=== PATIENT | male | born 2000 | race Caucasian/White ===

== ENCOUNTER 2019-10-01 11:39 | Observation (INO) | payer BC, OTHER ==
[2019-10-01] MEDS ORDERED: SODIUM CHLORIDE 0.9% 1,000 ML IV ONE (12:15)
--- NOTE | 2019-10-01 12:24 | ED ---
General Adult HPI - General Chief complaint: Recheck/Abnormal Lab/Rx Stated complaint: kidney issue relaps Time Seen by Provider: 10/01/19 11:55 Source: patient, RN notes reviewed, old records reviewed Mode of arrival: ambulatory Limitations: no limitations - History of Present Illness Initial comments: This is a 19-year-old male who has a past medical history significant for nephrotic syndrome. Patient states his numbers been rising recently but the refusing here today because he had edema increasing in both legs bilaterally. Patient also states she's had a little sensation that he has something stuck in his throat this happen before when he has swelling in his feet. Patient denies any difficulty breathing shortest breath. Patient denies any recent fever chills or cough per patient denies any chest pain or palpitations patient denies any abdominal pain patient denies any nausea vomiting or diarrhea. - Related Data Home Medications Medication Instructions Recorded Confirmed Multivitamins, Thera [Theragran] 1 each PO DAILY@1200 05/12/14 05/12/14 Previous Rx's Medication Instructions Recorded diphenhydrAMINE [Benadryl] 1 - 2 tab PO Q6HR PRN #30 capsule 11/14/15 Allergies Allergy/AdvReac Type Severity Reaction Status Date / Time Penicillins Allergy Unknown Verified 10/01/19 11:58 Review of Systems ROS Statement: Those systems with pertinent positive or pertinent negative responses have been documented in the HPI. ROS Other: All systems not noted in ROS Statement are negative. Past Medical History Past Medical History: Asthma Additional Past Medical History / Comment(s): nephrotic syndrome History of Any Multi-Drug Resistant Organisms: None Reported Past Surgical History: No Surgical Hx Reported Past Psychological History: No Psychological Hx Reported Past Alcohol Use History: None Reported Past Drug Use History: None Reported General Exam - General Exam Comments Initial Comments: GENERAL: Patient is well-developed and well-nourished. Patient is nontoxic and well- hydrated and is in mild distress. ENT: Neck is soft and supple. No significant lymphadenopathy is noted. Oropharynx is clear. Moist mucous membranes. Neck has full range of motion without eliciting any pain. EYES: The sclera were anicteric and conjunctiva were pink and moist. Extraocular movements were intact and pupils were equal round and reactive to light. Eyelids were unremarkable. PULMONARY: Unlabored respirations. Good breath sounds bilaterally. No audible rales rhonchi or wheezing was noted. CARDIOVASCULAR: There is a regular rate and rhythm without any murmurs gallops or rubs. ABDOMEN: Soft and nontender with normal bowel sounds. SKIN: Skin is clear with no lesions or rashes and otherwise unremarkable. NEUROLOGIC: Patient is alert and oriented x3. Cranial nerves II through XII are grossly intact. Motor and sensory are also intact. Normal speech, volume and content. Symmetrical smile. MUSCULOSKELETAL: Normal extremities with adequate strength and full range of motion. Edema 1+ bilaterally LYMPHATICS: No significant lymphadenopathy is noted PSYCHIATRIC: Normal psychiatric evaluation. Limitations: no limitations Course Vital Signs 10/01/19 11:53 Temperature 98.0 F Pulse Rate 84 Respiratory 18 Rate Blood Pressure 123/76 O2 Sat by Pulse 99 Oximetry Medical Decision Making - Medical Decision Making Dr. Rueda came into the emergency department saw the patient wanted the patient admitted. I spoke with Dr. Colbert she agreed to admit the patient admitted the patient wrote admitting orders. - Lab Data Result diagrams: 10/01/19 12:26 10/01/19 12:26 Lab Results 10/01/19 10/01/19 10/01/19 Range/Units 12:26 12:26 12:26 WBC 5.9 (4.0-11.0) k/uL RBC 5.92 H (4.30-5.90) m/uL Hgb 16.5 (13.0-17.5) gm/dL Hct 50.2 (39.0-53.0) % MCV 84.8 (80.0-100.0) fL MCH 27.9 (25.0-35.0) pg MCHC 32.9 (31.0-37.0) g/dL RDW 12.6 (11.5-15.5) % Plt Count 298 (150-450) k/uL Neutrophils % 83 % Lymphocytes % 11 % Monocytes % 4 % Eosinophils % 2 % Basophils % 0 % Neutrophils # 4.8 (1.3-7.7) k/uL Lymphocytes # 0.6 L (1.0-4.8) k/uL Monocytes # 0.2 (0-1.0) k/uL Eosinophils # 0.1 (0-0.7) k/uL Basophils # 0.0 (0-0.2) k/uL Sodium 131 L (137-145) mmol/L Potassium 4.2 (3.5-5.1) mmol/L Chloride 106 (98-107) mmol/L Carbon Dioxide 26 (22-30) mmol/L Anion Gap -1 mmol/L BUN 11 (9-20) mg/dL Creatinine 0.74 (0.66-1.25) mg/dL Est GFR (CKD-EPI)AfAm >90 (>60 ml/min/1.73 sqM) Est GFR (CKD-EPI)NonAf >90 (>60 ml/min/1.73 sqM) Glucose 115 H (74-99) mg/dL Calcium 7.6 L (8.4-10.2) mg/dL Total Bilirubin 0.6 (0.2-1.3) mg/dL AST 28 (17-59) U/L ALT 19 (4-49) U/L Alkaline Phosphatase 75 (38-126) U/L Total Protein 4.6 L (6.3-8.2) g/dL Albumin 2.1 L (3.5-5.0) g/dL Urine Color Yellow Urine Appearance Clear (Clear) Urine pH 7.5 (5.0-8.0) Ur Specific [place] 1.034 (1.001-1.035) Urine Protein 4+ H (Negative) Urine Glucose (UA) Negative (Negative) Urine Ketones Negative (Negative) Urine Blood Small H (Negative) Urine Nitrite Negative (Negative) Urine Bilirubin Negative (Negative) Urine Urobilinogen 2.0 (<2.0) mg/dL Ur Leukocyte Esterase Negative (Negative) Urine RBC 1 (0-5) /hpf Urine WBC 2 (0-5) /hpf Urine Bacteria Rare H (None) /hpf Urine Mucus Occasional H (None) /hpf Disposition Clinical Impression: Nephrotic syndrome Disposition: ADMITTED IP TO THIS [facility] Time of Disposition: 13:39
[2019-10-01 12:36] LABS: Basophils % (A) 0 %; Eosinophils # (A) 0.1 k/uL (0-0.7); Eosinophils % (A) 2 %; HCT 50.2 % (39.0-53.0); HGB 16.5 gm/dL (13.0-17.5); Lymphocytes # (A) 0.6 k/uL (1.0-4.8); Lymphocytes % (A) 11 %; MCH 27.9 pg (25.0-35.0); MCHC 32.9 g/dL (31.0-37.0); MCV 84.8 fL (80.0-100.0); Mean Platelet Volume 6.9; Monocytes # (A) 0.2 k/uL (0-1.0); Monocytes % (A) 4 %; Neutrophils # (A) 4.8 k/uL (1.3-7.7); Neutrophils % (A) 83 %; Platelet Count 298 k/uL (150-450); RBC 5.92 m/uL (4.30-5.90); RDW 12.6 % (11.5-15.5); WBC 5.9 k/uL (4.0-11.0)
[2019-10-01 12:44] LABS: ALT 19 U/L (4-49); AST 28 U/L (17-59); African American GFR (CKD) >90 (>60 ml/min/1.73 sqM); Albumin 2.1 g/dL (3.5-5.0); Alkaline Phosphatase 75 U/L (38-126); Anion Gap -1 mmol/L; Blood Urea Nitrogen 11 mg/dL (9-20); Calcium 7.6 mg/dL (8.4-10.2); Carbon Dioxide 26 mmol/L (22-30); Chloride 106 mmol/L (98-107); Glucose 115 mg/dL (74-99); Non-African American GFR(CKD) >90 (>60 ml/min/1.73 sqM); Potassium 4.2 mmol/L (3.5-5.1); Sodium 131 mmol/L (137-145); Total Bilirubin 0.6 mg/dL (0.2-1.3); Total Protein 4.6 g/dL (6.3-8.2)
[2019-10-01 12:50] LABS: Appearance,Urine Clear (Clear); Bacteria,Urine Rare /hpf; Bilirubin,Urine Negative (Negative); Blood,Urine Small (Negative); Color,Urine Yellow; Glucose,Urine (UA) Negative (Negative); Ketones,Urine Negative (Negative); Leukocyte Esterase,Urine Negative (Negative); Mucus,Urine Occasional /hpf; Nitrite,Urine Negative (Negative); PH, Urine 7.5 (5.0-8.0); Protein,Urine 4+ (Negative); RBC,Urine 1 /hpf (0-5); Specific Gravity,Urine 1.034 (1.001-1.035); WBC,Urine 2 /hpf (0-5)
--- NOTE | 2019-10-01 13:48 | P.NPCON ---
History of Present Illness - Reason for Consult proteinuria - History of Present Illness Reason for consultation: Proteinuria History of present illness: Patient is a 19-year-old male seen in renal consultation for proteinuria. Patient has history of nephrotic syndrome for which she is maintained on pred nisone 5 mg every other day. Patient states he was following with the pediatrics teacher outpatient but now doesn't want to drive out to [place] and therefore recently started seeing me in the office. Patient denies any kidney biopsies in the past. Patient states about a week ago he noticed swelling in his lower extremities which progressively got worse over the last few days. Patient believes he is having another relapse. He denies chest pain or shortness of breath. Good urine output. No hematuria or dysuria. No vomiting or diarrhea. Blood pressure well controlled. He is noted to have 4+ proteinuria on UA. His albumin is low at 2.1. No history of IV drug abuse. Patient states he works at an [employer]. Denies regular use of nonsteroidals. Vital signs are stable. General: The patient appeared well nourished and normally developed. HEENT: Head exam is unremarkable. Neck is without jugular venous distension. LUNGS: Lungs are clear to auscultation and percussion. Breath sounds decreased. HEART: Rate and Rhythm are regular. ABDOMEN: Soft, nontender. EXTREMITITES: 2+ edema. Past Medical History Past Medical History: Asthma Additional Past Medical History / Comment(s): nephrotic syndrome History of Any Multi-Drug Resistant Organisms: None Reported Past Surgical History: No Surgical Hx Reported Past Psychological History: No Psychological Hx Reported Past Alcohol Use History: None Reported Past Drug Use History: None Reported Medications and Allergies Home Medications Medication Instructions Recorded Confirmed Type Multivitamins, Thera [Theragran] 1 each PO DAILY@1200 05/12/14 05/12/14 History diphenhydrAMINE [Benadryl] 1 - 2 tab PO Q6HR PRN #30 capsule 11/14/15 Rx Allergies Allergy/AdvReac Type Severity Reaction Status Date / Time Penicillins Allergy Unknown Verified 10/01/19 11:58 Physical Exam Vitals: Vital Signs Temp Pulse Resp BP Pulse Ox 10/01/19 11:53 98.0 F 84 18 123/76 99 Intake and Output 09/30/19 10/01/19 10/01/19 22:59 06:59 14:59 Other: Weight 85.275 kg Results - Lab Results Most recent lab results WBC 5.9 k/uL (4.0-11.0) 10/01/19 12: RBC 5.92 m/uL (4.30-5.90) H 10/01/19 12:26 Hgb 16.5 gm/dL (13.0-17.5) 10/01/19 12: Hct 50.2 % (39.0-53.0) 10/01/19 12: MCV 84.8 fL (80.0-100.0) 10/01/19 12: MCH 27.9 pg (25.0-35.0) 10/01/19 12: MCHC 32.9 g/dL (31.0-37.0) 10/01/19 12: RDW 12.6 % (11.5-15.5) 10/01/19 12: Plt Count 298 k/uL (150-450) 10/01/19 12: Neutrophils % 83 % 10/01/19 12: Lymphocytes % 11 % 10/01/19 12:26 Monocytes % 4 % 10/01/19 12: Eosinophils % 2 % 10/01/19 12: Basophils % 0 % 10/01/19 12: Neutrophils # 4.8 k/uL (1.3-7.7) 10/01/19 12: Lymphocytes # 0.6 k/uL (1.0-4.8) L 10/01/19 12: Monocytes # 0.2 k/uL (0-1.0) 10/01/19 12: Eosinophils # 0.1 k/uL (0-0.7) 10/01/19 12: Basophils # 0.0 k/uL (0-0.2) 10/01/19 12:26 Sodium 131 mmol/L (137-145) L 10/01/19 12:26 Potassium 4.2 mmol/L (3.5-5.1) 10/01/19 12: Chloride 106 mmol/L (98-107) 10/01/19 12: Carbon Dioxide 26 mmol/L (22-30) 10/01/19 12:26 Anion Gap -1 mmol/L 10/01/19 12:26 BUN 11 mg/dL (9-20) 10/01/19 12:26 Creatinine 0.74 mg/dL (0.66-1.25) 10/01/19 12:26 Est GFR (CKD-EPI)AfAm >90 (>60 ml/min/1.73 sqM) 10/01/19 12: Est GFR (CKD-EPI)NonAf >90 (>60 ml/min/1.73 sqM) 10/01/19 12:26 Glucose 115 mg/dL (74-99) H 10/01/19 12:26 Calcium 7.6 mg/dL (8.4-10.2) L 10/01/19 12: Total Bilirubin 0.6 mg/dL (0.2-1.3) 10/01/19 12: AST 28 U/L (17-59) 10/01/19 12: ALT 19 U/L (4-49) 10/01/19 12: Alkaline Phosphatase 75 U/L (38-126) 10/01/19 12:26 Total Protein 4.6 g/dL (6.3-8.2) L 10/01/19 12: Albumin 2.1 g/dL (3.5-5.0) L 10/01/19 12:26 10/01/19 12:26 10/01/19 12:26 Assessment and Plan Plan: Assessment: 1. Nephrotic syndrome. 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 Patie nt states he's never had a kidney biopsy before. He's had 7 relapses in the past. GFR at baseline. Maintained on prednisone 5 mg every other day at home. 2. Edema secondary to nephrotic syndrome. 3. 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 Plan: Lasix 40 mg IV twice daily. Quantify proteinuria. Check renal ultrasound. Check serologies. Schedule for CT-guided kidney biopsy for definitive diagnosis. Start prednisone 60 mg once daily. Low-salt diet and 1500 mL fluid restriction per day. Will also benefit from YUAN inhibition. Check lipid panel. Thank you for the consultation. I will continue to follow the patient with you during his hospital stay.
--- NOTE | 2019-10-01 14:26 | US ---
EXAMINATION TYPE: US kidneys/renal and bladder DATE OF EXAM: 10/01/2019 COMPARISON: NONE CLINICAL HISTORY: 19-year-old male with acute kidney injury, abnormal labs. Patient states no pain. TECHNIQUE: Multiple sonographic images of the kidneys and bladder are obtained. FINDINGS: EXAM MEASUREMENTS: Right Kidney: 12.3 x 5.9 x 4.4 cm Left Kidney: 11.4 x 5.2 x 6.3 cm Right Kidney: No hydronephrosis. Left Kidney: No hydronephrosis. Possible trace perinephric edema. Bladder: Mildly distended but with apparent circumferential wall thickening up to 6 mm. Bilateral Jets not seen [id number] free fluid seen in midline pelvis IMPRESSION: 1. No hydronephrosis. 2. Possible mild left sided perinephric fluid of unclear etiology. 3. Mild to moderate pelvic free fluid may be physiologic. Further clinical correlation recommended. 4. Circumferential bladder wall thickening. Correlate to exclude cystitis.
[2019-10-01] MEDS: FUROSEMIDE 10 MG/ML 4 ML VIAL IV SCH ×2 (14:29→20:46)
[2019-10-01] MEDS: predniSONE 20 MG TAB PO SCH (14:29)
[2019-10-01 15:30] LABS: ALT 18 U/L (4-49); AST 28 U/L (17-59); African American GFR (CKD) >90 (>60 ml/min/1.73 sqM); Albumin 2.1 g/dL (3.5-5.0); Alkaline Phosphatase 70 U/L (38-126); Anion Gap -1 mmol/L; Blood Urea Nitrogen 11 mg/dL (9-20); Calcium 7.7 mg/dL (8.4-10.2); Carbon Dioxide 26 mmol/L (22-30); Chloride 105 mmol/L (98-107); Glucose 104 mg/dL (74-99); Magnesium 1.9 mg/dL (1.6-2.3); Non-African American GFR(CKD) >90 (>60 ml/min/1.73 sqM); Potassium 4.6 mmol/L (3.5-5.1); Sodium 130 mmol/L (137-145); Total Bilirubin 0.5 mg/dL (0.2-1.3); Total Protein 4.6 g/dL (6.3-8.2)
[2019-10-02 04:09] LABS: Hepatitis A Antibody IgM Non-Reactive (Non-Reactive)
[2019-10-02] MEDS: predniSONE 20 MG TAB PO SCH (08:52)
[2019-10-02] MEDS: FUROSEMIDE 10 MG/ML 4 ML VIAL IV SCH ×2 (08:52→20:33)
[2019-10-02 09:20] LABS: ALT 16 U/L (4-49); AST 22 U/L (17-59); African American GFR (CKD) >90 (>60 ml/min/1.73 sqM); Albumin 1.9 g/dL (3.5-5.0); Alkaline Phosphatase 66 U/L (38-126); Anion Gap -1 mmol/L; Blood Urea Nitrogen 11 mg/dL (9-20); Calcium 7.8 mg/dL (8.4-10.2); Carbon Dioxide 29 mmol/L (22-30); Chloride 103 mmol/L (98-107); Glucose 107 mg/dL (74-99); Magnesium 1.9 mg/dL (1.6-2.3); Non-African American GFR(CKD) >90 (>60 ml/min/1.73 sqM); Potassium 3.6 mmol/L (3.5-5.1); Sodium 131 mmol/L (137-145); Total Bilirubin 0.6 mg/dL (0.2-1.3); Total Protein 4.2 g/dL (6.3-8.2); Triglycerides 107 mg/dL (<150)
[2019-10-02 09:27] LABS: LDL Cholesterol,Calculated 265 mg/dL (0-99)
--- NOTE | 2019-10-02 09:32 | P.PN ---
Subjective Patient is seen in follow-up for nephrotic syndrome. Edema improving with IV diuresis. Maintained on prednisone 60 mg once daily. Oral intake fair. No vomiting or diarrhea. Scheduled for kidney biopsy today. Vital signs are stable. General: The patient appeared well nourished and normally developed. HEENT: Head exam is unremarkable. Neck is without jugular venous distension. LUNGS: Lungs are clear to auscultation and percussion. Breath sounds decreased. HEART: Rate and Rhythm are regular. First and second heart sounds normal. No murmurs, rubs or gallops. ABDOMEN: Soft, nontender. EXTREMITITES: 1+ edema. Objective - Vital Signs Vital signs: Vital Signs Temp 97.8 F 10/01/19 20:44 Pulse 95 10/02/19 03:00 Resp 17 10/02/19 03:00 BP 122/61 10/02/19 03:00 Pulse Ox 98 10/02/19 03:00 Intake & Output 10/01/19 10/02/19 10/02/19 18:59 06:59 18:59 Output Total 1900 Balance -1900 Weight 85.275 kg Output: Urine 1900 Other: Voiding Method Toilet Toilet # Voids 1 - Labs CBC & Chem 7: 10/01/19 12:26 10/01/19 15:13 Labs: Abnormal Lab Results - Last 24 Hours (Table) 10/01/19 10/01/19 10/01/19 Range/Units 12:26 12:26 12:26 RBC 5.92 H (4.30-5.90) m/uL Lymphocytes # 0.6 L (1.0-4.8) k/uL Sodium 131 L (137-145) mmol/L Glucose 115 H (74-99) mg/dL Calcium 7.6 L (8.4-10.2) mg/dL Total Protein 4.6 L (6.3-8.2) g/dL Albumin 2.1 L (3.5-5.0) g/dL Urine Protein 4+ H (Negative) Urine Blood Small H (Negative) Urine Bacteria Rare H (None) /hpf Urine Mucus Occasional H (None) /hpf 10/01/19 Range/Units 15:13 RBC (4.30-5.90) m/uL Lymphocytes # (1.0-4.8) k/uL Sodium 130 L (137-145) mmol/L Glucose 104 H (74-99) mg/dL Calcium 7.7 L (8.4-10.2) mg/dL Total Protein 4.6 L (6.3-8.2) g/dL Albumin 2.1 L (3.5-5.0) g/dL Urine Protein (Negative) Urine Blood (Negative) Urine Bacteria (None) /hpf Urine Mucus (None) /hpf Assessment and Plan Plan: Assessment: 1. Nephrotic syndrome. 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 Patient states he's never had a kidney biopsy before. He's had 7 relapses in the past. GFR at baseline. Was maintained on prednisone 5 mg every other day at home. No hydronephrosis noted on kidney ultrasound. 2. Edema secondary to nephrotic syndrome. 3. 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 Plan: Lasix 40 mg IV twice daily. Check serologies. Scheduled for CT-guided kidney biopsy for definitive diagnosis. Maintain prednisone 60 mg once daily - started September 30. Low-salt diet and 1500 mL fluid restriction per day. Add low-dose lisinopril.
[2019-10-02 09:33] LABS: Cholesterol 404 mg/dL (<200); HDL Cholesterol 118 mg/dL (40-60)
--- NOTE | 2019-10-02 09:44 | P.HPIM ---
History of Present Illness H&P Date: 10/02/19 Chief Complaint: Lower extremity edema, foamy urine This is a 19-year-old gentleman with history of asthma as a child, nephrotic syndrome on oral steroids;patient reports in 2014 that he had kidney issues, transferred to [facility], no biopsy was obtained at that time. 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 Rueda, related to being closer to home. Patient reports he works in [employer] ,was not doing any strenuous activity, no workouts, not taking any supplements, no NSAIDs, no recreational drug use, developed dry throat, bilateral lower extremity edema times nearly a week and good urine outputfoamy darkened urine. Denies dysuria, no hematuria. Reports presentation similar to prior one in 2015. Denies any chest pain, palpitations, shortness of breath. Denies any fever or chills. Denies any cough. Denies nausea vomiting or diarrhea. Denies abdominal pain. Afebrile, normal WBC. Albumin 2.1 Sodium 1:30, anion gap -1 BUN 11, creatinine 0.74, bicarb 26, glucose 104 to 115. UA reported 4+ protein, total protein greater than 600, occasional mucus, rare bacteria urine creatinine 278.3, rare bacteria negative nitrates, specific gravity 1.034. Hepatitis A serology nonreactive. Abdomen/pelvis ultrasound reported no hydronephrosis, mild to moderate free fluid seen in midline pelvis, possible mild left-sided perinephric fluid of unclear etiology, circumferential bladder wall thickening, possibly cystitis. Received IV fluids in the ER. Evaluated by nephrology, IV push Lasix and steroids initiated. Patient is scheduled for kidney biopsy today. Review of Systems ROS Statement: Those systems with pertinent positive or pertinent negative responses have been documented in the HPI. ROS Other: All systems not noted in ROS Statement are negative. Past Medical History Past Medical History: Asthma, Renal Disease Additional Past Medical History / Comment(s): nephrotic syndrome, asthma as a child History of Any Multi-Drug Resistant Organisms: None Reported Past Surgical History: No Surgical Hx Reported Past Anesthesia/Blood Transfusion Reactions: Unable to Obtain Additional Past Anesthesia/Blood Transfusion Reaction / Comment(s): Pt has never had surgery Smoking Status: Never smoker - Past Family History Mother Additional Family Medical History / Comment(s): Mother has motion sickness. Pt cannot recall any other hx. Father History Unknown: Yes Medications and Allergies Home Medications Medication Instructions Recorded Confirmed Type predniSONE 5 mg PO DAILY 10/01/19 10/01/19 History Allergies Allergy/AdvReac Type Severity Reaction Status Date / Time Penicillins Allergy Unknown Verified 10/01/19 11:58 Physical Exam Vitals: Vital Signs Temp Pulse Pulse Resp BP BP Pulse Ox 10/02/19 03:00 95 17 122/61 98 10/01/19 20:44 97.8 F 91 16 118/71 98 10/01/19 15:00 97.7 F 71 16 110/69 96 10/01/19 14:35 71 18 113/70 96 10/01/19 11:53 98.0 F 84 18 123/76 99 Intake and Output 10/01/19 10/02/19 10/02/19 22:59 06:59 14:59 Output Total 1900 Balance -1900 Output: Urine 1900 Other: Voiding Method Toilet # Voids 1 Weight 85.275 kg PHYSICAL EXAM: VITAL SIGNS: As above GENERAL: Sitting up in bed, no acute distress HEENT: Conjunctivae normal. eyes normal. Mucosa dry NECK: No JVD. No thyroid enlargement. No LNs CARDIOVASCULAR: S1, S2 regular.. No murmur RESPIRATION: Breath sounds diminished in the bases. No rhonchi or crackles. No bronchial breathing. ABDOMEN: Soft, nontender . No guarding. no masses palpable. No ascites, No hepatosplenomegaly.Bowel sounds heard. LEGS: Bilateral lower extremity edema, denies calf pain. Positive DP pulses. PSYCHIATRY: Alert and oriented X3, mood and affect normal. NERVOUS SYSTEM: Cranial N 2-12 grossly normal. Moves all 4 limbs. No focal deficits. Strength and sensation grossly intact.. Skin: Warm, dry, no rash Lymphatic system. No LN neck axilla. Results CBC & Chem 7: 10/01/19 12:26 10/01/19 15:13 Labs: Abnormal Lab Results - Last 24 Hours (Table) 10/01/19 10/01/19 10/01/19 Range/Units 12:26 12:26 12:26 RBC 5.92 H (4.30-5.90) m/uL Lymphocytes # 0.6 L (1.0-4.8) k/uL Sodium 131 L (137-145) mmol/L Glucose 115 H (74-99) mg/dL Calcium 7.6 L (8.4-10.2) mg/dL Total Protein 4.6 L (6.3-8.2) g/dL Albumin 2.1 L (3.5-5.0) g/dL Urine Protein 4+ H (Negative) Urine Blood Small H (Negative) Urine Bacteria Rare H (None) /hpf Urine Mucus Occasional H (None) /hpf 10/01/19 Range/Units 15:13 RBC (4.30-5.90) m/uL Lymphocytes # (1.0-4.8) k/uL Sodium 130 L (137-145) mmol/L Glucose 104 H (74-99) mg/dL Calcium 7.7 L (8.4-10.2) mg/dL Total Protein 4.6 L (6.3-8.2) g/dL Albumin 2.1 L (3.5-5.0) g/dL Urine Protein (Negative) Urine Blood (Negative) Urine Bacteria (None) /hpf Urine Mucus (None) /hpf Thrombosis Risk Factor Assmnt - Choose All That Apply Any of the Below Risk Factors Present?: No Other Risk Factors: No Other congenital or acquired thrombophilia - If yes, enter type in comment: No Thrombosis Risk Factor Assessment Level: Very Low Risk Assessment and Plan Assessment: Nephrotic syndrome, in a patient with prior relapse, on oral steroids Bilateral lower extremity edema secondary to the above Chronic kidney disease stage I History of childhood asthma, stable Plan: Continue on current medication regime ,monitoring and symptomatic treatment. Fluid restrictions. Evaluated by nephrology with recommendations noted. Currently on IV push Lasix, steroids.NPO, scheduled for diagnostic kidney biopsy today. The impression and plan of care has been dictated as directed. : I performed a history and examination of this patient, discussed the same with the dictator. I agree with the dictator's note ,documented as a scribe. Any additional findings or plans will be noted.
--- NOTE | 2019-10-02 11:26 | P.OP ---
Date of Procedure: 10/02/19 Preoperative Diagnosis: nephrotic syndrome, proteinuria Procedure(s) Performed: CT-guided left renal parenchymal biopsy Anesthesia: local Surgeon: Yashira Briseno Estimated Blood Loss (ml): 1 Pathology: other (3 18G cores submitted for pathology) Condition: stable Disposition: observation Operative Findings: 3 18G core biopsies of the left kidney lower pole obtained. Small perinephric hemorrhage post biopsy. Pt remained stable throughout procedure.
[2019-10-02 13:39] VITALS: BMI 22.3
[2019-10-02 14:12] LABS: C-ANCA <1:20 Titer (<1:20)
[2019-10-02] MEDS: lisinopriL 5 MG TAB PO SCH (15:08)
[2019-10-02 16:28] LABS: Hepatitis B Core IgM Non-Reactive (Non-Reactive); Hepatitis B Surface Antigen Non-Reactive (Non-Reactive); Hepatitis C IgG Antibody Non-Reactive (Non-Reactive)
[2019-10-02 17:03] LABS: Anti-DNA, DS unit <1.0 IU/mL; DNA Double-Stranded NEGATIVE (NEGATIVE)
[2019-10-02 21:28] VITALS: BP 122/59; PULSE 66; TEMP 98.8
[2019-10-03 05:44] VITALS: RESP 18
[2019-10-03 05:59] LABS: ALT 16 U/L (4-49); AST 21 U/L (17-59); African American GFR (CKD) >90 (>60 ml/min/1.73 sqM); Albumin 1.8 g/dL (3.5-5.0); Alkaline Phosphatase 60 U/L (38-126); Anion Gap -1 mmol/L; Blood Urea Nitrogen 11 mg/dL (9-20); Calcium 7.7 mg/dL (8.4-10.2); Carbon Dioxide 30 mmol/L (22-30); Chloride 102 mmol/L (98-107); Glucose 112 mg/dL (74-99); Non-African American GFR(CKD) >90 (>60 ml/min/1.73 sqM); Potassium 3.3 mmol/L (3.5-5.1); Sodium 131 mmol/L (137-145); Total Bilirubin 0.4 mg/dL (0.2-1.3)
--- NOTE | 2019-10-03 09:10 | CT ---
EXAMINATION TYPE: CT biopsy renal LT DATE OF EXAM: 10/02/2019 HISTORY: Nephrotic syndrome. Proteinuria. COMPARISON: Ultrasound kidneys 10/01/2019 PEARL DIGGER: Dr. Yashira Briseno The procedure was discussed with the patient. The risks, complications, benefits, and alternatives we re discussed and any questions were answered. Informed consent was obtained. The patient was placed p linda. Preliminary CT imaging demonstrated grossly symmetric kidneys. The skin overlying a suitable path to the right kidney was localized using CT and the overlying skin was prepped and draped utilizing maxim al barrier technique. Lidocaine used for local anesthesia. A small skin alpesh was made with a scalpel. Using CT guidance, access was gained to the lesion with a 18-gauge coaxial core biopsy needle. 3 pas ses were made in total. 3 18-gauge core specimen(s) submitted in for histopathology. All needles were removed and sterile bandage was applied. Postprocedure CT imaging demonstrated expected small perinephric hemorrhage. Patient tolerated proced ure well with no immediate complications. Patient is discharged in stable condition. IMPRESSION: Successful CT-guided right renal parenchymal 18-gauge core biopsy. Pathology pending.
[2019-10-03] MEDS ORDERED: POTASSIUM CHLORIDE ER 20 MEQ TAB.ER PO STA (09:27)
--- NOTE | 2019-10-03 09:29 | P.PN ---
Subjective Patient is seen in follow-up for nephrotic syndrome. Edema improving with IV diuresis. Maintained on prednisone 60 mg once daily. Oral intake fair. No vomiting or diarrhea. Status post kidney biopsy yesterday. Vital signs are stable. General: The patient appeared well nourished and normally developed. HEENT: Head exam is unremarkable. Neck is without jugular venous distension. LUNGS: Lungs are clear to auscultation and percussion. Breath sounds decreased. HEART: Rate and Rhythm are regular. First and second heart sounds normal. No murmurs, rubs or gallops. ABDOMEN: Soft, nontender. EXTREMITITES: 1+ edema. Objective - Vital Signs Vital signs: Vital Signs Temp 98.8 F 10/03/19 05:00 Pulse 66 10/03/19 05:00 Resp 18 10/03/19 05:00 BP 122/59 10/03/19 05:00 Pulse Ox 98 10/03/19 05:00 Intake & Output 10/02/19 10/03/19 10/03/19 18:59 06:59 18:59 Output Total 2600 Balance -2600 Weight 85.275 kg Output: Urine 2600 Other: # Voids 2 - Labs CBC & Chem 7: 10/01/19 12:26 10/03/19 05:32 Labs: Abnormal Lab Results - Last 24 Hours (Table) 10/01/19 10/01/19 10/02/19 Range/Units 15:13 15:13 08:52 Sodium 131 L (137-145) mmol/L Potassium (3.5-5.1) mmol/L Glucose 107 H (74-99) mg/dL Calcium 7.8 L (8.4-10.2) mg/dL Total Protein 4.2 L (6.3-8.2) g/dL Total Protein (PEP) 4.4 L (6.2-8.2) g/dL Albumin 1.9 L (3.5-5.0) g/dL Cholesterol 404 H (<200) mg/dL LDL Cholesterol, Calc 265 H (0-99) mg/dL HDL Cholesterol 118 H (40-60) mg/dL Tot Complement (CH50) 101 H (42 - 95) U/mL 10/03/19 Range/Units 05:32 Sodium 131 L (137-145) mmol/L Potassium 3.3 L (3.5-5.1) mmol/L Glucose 112 H (74-99) mg/dL Calcium 7.7 L (8.4-10.2) mg/dL Total Protein 4.0 L (6.3-8.2) g/dL Total Protein (PEP) (6.2-8.2) g/dL Albumin 1.8 L (3.5-5.0) g/dL Cholesterol (<200) mg/dL LDL Cholesterol, Calc (0-99) mg/dL HDL Cholesterol (40-60) mg/dL Tot Complement (CH50) (42 - 95) U/mL Assessment and Plan Plan: Assessment: 1. Nephrotic syndrome. 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 Patient states he's never had a kidney biopsy before. He's had 7 relapses in the past. GFR at baseline. Was maintained on prednisone 5 mg every other day at home. No hydronephrosis noted on kidney ultrasound. 2. Edema secondary to nephrotic syndrome. 3. 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 4. Hypokalemia secondary to diuresis. 5. Hypervolemic hyponatremia. Plan: I will change Lasix to 40 mg orally once daily. Add K-Dur 10 milliequivalents once daily to be started tomorrow. 40 mEq k-dur today. Follow-up serologies. Negative so far. Kidney biopsy results pending. Maintain lisinopril. Maintain prednisone 60 mg once daily - started September 30. Low-salt diet and 1500 mL fluid restriction per day. Repeat BMP 2-3 days post discharge. Follow up outpatient in 1 week.
[2019-10-03] MEDS: lisinopriL 5 MG TAB PO SCH (09:38)
[2019-10-03] MEDS: predniSONE 20 MG TAB PO SCH (09:38)
[2019-10-03] MEDS: FUROSEMIDE 10 MG/ML 4 ML VIAL IV SCH ×2 (09:38→09:46)
[2019-10-03] MEDS ORDERED: FUROSEMIDE 40 MG TAB PO SCH (09:46)
--- NOTE | 2019-10-03 10:28 | P.DS ---
Providers Date of admission: 10/01/19 13:56 Expected date of discharge: 10/03/19 Attending physician: Chris Colbert Consults: 10/01/19 13:39 Consult Physician Urgent Consulting Provider: Chinedu Rueda Consult Reason/Comments: Nephrotic syndrome Do you want consulting provider notified?: Yes Primary care physician: Chris Colbert [facility] Course: Final Diagnoses: Nephrotic syndrome, in a patient with prior relapse, on oral steroids Proteinuria secondary to the above Bilateral lower extremity edema secondary to the above Chronic kidney disease stage I Hypokalemia secondary to diuresing Hyponatremia, hypervolemic History of childhood asthma, stable Hospital course:This is a 19-year-old gentleman with history of asthma as a child, nephrotic syndrome on oral steroids;patient reports in 2014 that he had kidney issues, transferred to [facility], no biopsy was obtained at that time. Previously followed with rn pediatric in [place], recently converted to seeing Dr. Rueda, related to being closer to home. Patient reports he works in [employer] ,was not doing any strenuous activity, no workouts, not taking any supplements, no NSAIDs, no recreational drug use, developed dry throat, bilateral lower extremity edema times nearly a week and good urine outputfoamy darkened urine. Denies dysuria, no hematuria. Reports presentation similar to prior one in 2015. Denies any chest pain, palpitations, shortness of breath. Denies any fever or chills. Denies any cough. Denies nausea vomiting or diarrhea. Denies abdominal pain. Afebrile, normal WBC. Albumin 2.1 Sodium 1:30, anion gap -1 BUN 11, creatinine 0.74, bicarb 26, glucose 104 to 115. UA reported 4+ protein, total protein greater than 600, occasional mucus, rare bacteria urine creatinine 278.3, rare bacteria negative nitrates, specific gravity 1.034. Hepatitis A serology nonreactive. Abdomen/pelvis ultrasound reported no hydronephrosis, mild to moderate free fluid seen in midline pelvis, possible mild left-sided perinephric fluid of unclear etiology, circumferential bladder wall thickening, possibly cystitis. Received IV fluids in the ER. Evaluated by nephrology, IV push Lasix and steroids initiated. Patient is scheduled for kidney biopsy today. Underwent biopsy of left kidney, tolerated procedure well. Biopsy results pending .Edema improving with IV push diuretics, fluid restrictions. No hydronephrosis reported on kidney ultrasound. Significant clinical improvement. Cleared by nephrology for discharge with DC recommendations of prednisone 60 mg by mouth daily( patient to follow-up with Dr. Rueda in 1 week), potassium chloride 10 mEq by mouth daily, Lasix 40 mg by mouth daily, Protonix 40 mg by mouth daily, lisinopril 5 mg by mouth daily. CBC, BMP, Magnesium in 3 days. Patient will be discharged home in a stable condition with guarded prognosis. The impression and plan of care has been dictated as directed. : I performed a history and examination of this patient, discussed the same with the dictator. I agree with the dictator's note ,documented as a scribe. Any additional findings or plans will be noted. Patient Condition at Discharge: Stable Plan - Discharge Summary Discharge Rx Participant: No New Discharge Prescriptions: New predniSONE [Deltasone] 60 mg PO DAILY #90 tab Potassium Chloride ER [K-Dur 10] 10 meq PO DAILY #30 tab.er.prt Furosemide [Lasix] 40 mg PO DAILY #30 tab Pantoprazole [Protonix] 40 mg PO DAILY #30 tablet. lisinopriL [Zestril] 5 mg PO DAILY #30 tab Discontinued predniSONE 5 mg PO DAILY Discharge Medication List Furosemide [Lasix] 40 mg PO DAILY #30 tab 10/03/19 [Rx] Pantoprazole [Protonix] 40 mg PO DAILY #30 tablet. 10/03/19 [Rx] Potassium Chloride ER [K-Dur 10] 10 meq PO DAILY #30 tab.er.prt 10/03/19 [Rx] lisinopriL [Zestril] 5 mg PO DAILY #30 tab 10/03/19 [Rx] predniSONE [Deltasone] 60 mg PO DAILY #90 tab 10/03/19 [Rx] Follow up Appointment(s)/Referral(s): Chris Colbert DO [Primary Care Provider] - 3 Days Chinedu Rueda DO [STAFF PHYSICIAN] - 1 Week Ambulatory/Diagnostic Orders: Complete Blood Count w/diff [LAB.AMB] Time Frame: 3 Days, Location: None Selected Activity/Diet/Wound Care/Special Instructions: Diet: Low salt diet, 1500 MLS fluid restriction
[2019-10-03 12:05] LABS: Albumin 2.11 g/dL (3.80-4.90)
[2019-10-04] MEDS ORDERED: POTASSIUM CHLORIDE ER 10 MEQ TAB.ER.PRT PO SCH (09:00)
[2019-10-04] MEDS ORDERED: FUROSEMIDE 40 MG TAB PO SCH (09:00)
[2019-10-04 11:55] LABS: Gamma Globulin 0.48 g/dL (0.70-1.50)
[2019-10-04 11:57] LABS: Protein, Total 4.4 g/dL (6.2-8.2)
== END 2019-10-03 12:33 | disposition home or self-care (01) ==
LOC: EC 11:39 → 1SOBS 13:56
PROVIDERS: ADMIT Family Medicine; ATTEND Family Medicine
DX: R60.0 Localized edema (principal); J45.909 Unspecified asthma, uncomplicated; N03.8 Chronic nephritic syndrome with other morphologic changes; N18.1 Chronic kidney disease, stage 1; T50.2X5A Adverse effect of carbonic-anhydrase inhibitors, benzothiadiazides and other diuretics, initial encounter; E87.6 Hypokalemia; E87.70 Fluid overload, unspecified; E87.1 Hypo-osmolality and hyponatremia; Z79.52 Long term (current) use of systemic steroids; Z88.0 Allergy status to penicillin
CPT/HCPCS: 96376 ×2; 96361; 96374; 99285; 36415; 86255; 86900; 86901; 86160 ×2; 86162; 82570; 80061; 80053 ×3; 80074; 84156; 83735 ×3; 85025; 85610; 86850; 81001; 84165; 86038; 86225; 86334; 86335; 76770; 50200; 77012; G0378 ×3; J1940 ×2; J7512 ×3

== ENCOUNTER → 2019-11-05 | Outpatient (CLI) | payer BC, OTHER | END | disposition home or self-care (01) | LOC: LABWHC1 14:39 | PROVIDERS: ATTEND Nurse Practitioner Family | DX: N05.0 Unspecified nephritic syndrome with minor glomerular abnormality (principal) | CPT/HCPCS: 36415; 83735 ==

== ENCOUNTER → 2019-12-10 | Outpatient (CLI) | payer BC, OTHER ==
[2019-12-10 15:54] LABS: HCT 49.4 % (39.0-53.0); MCHC 32.3 g/dL (31.0-37.0); MCV 89.7 fL (80.0-100.0); Mean Platelet Volume 7.1; Platelet Count 281 k/uL (150-450); RBC 5.51 m/uL (4.30-5.90); RDW 12.8 % (11.5-15.5); WBC 9.2 k/uL (4.0-11.0)
[2019-12-10 16:10] LABS: Appearance,Urine Clear (Clear); Bilirubin,Urine Negative (Negative); Blood,Urine Negative (Negative); Color,Urine Yellow; Glucose,Urine (UA) Negative (Negative); Ketones,Urine Negative (Negative); Leukocyte Esterase,Urine Negative (Negative); Nitrite,Urine Negative (Negative); Protein,Urine Negative (Negative); Urobilinogen,Urine <2.0 mg/dL (<2.0)
[2019-12-10 16:21] LABS: Creatinine,Urine Random 123.5 mg/dL; Protein/Creatinine Ratio,Urine 0.065
[2019-12-11 00:20] LABS: % Iron Saturation 36.58 (15.00-50.00); Albumin 4.3 g/dL (3.80-4.90); Albumin/Globulin Ratio 2.26 (1.60-3.17); Anion Gap 7.9 mmol/L (4.00-12.00); BUN/Creat Ratio 16.67 Ratio (12.00-20.00); Calcium 9.6 mg/dL (8.7-10.3); Carbon Dioxide 28.1 mmol/L (21.6-31.8); Globulin 1.9 g/dL (1.6-3.3); Magnesium 2.1 mg/dL (1.5-2.4); Non-African American GFR(CKD) 122.5 (60.0-200.0); Phosphorus 3.7 mg/dL (2.4-5.1); Potassium 4.6 mmol/L (3.5-5.5); Total Bilirubin 0.9 mg/dL (0.2-1.2); Total Protein 6.2 g/dL (6.2-8.2); Uric Acid 6.6 mg/dL (3.7-8.7)
== END | disposition home or self-care (01) ==
LOC: LABWHC1 14:29
PROVIDERS: ATTEND Nurse Practitioner Family
DX: N05.0 Unspecified nephritic syndrome with minor glomerular abnormality (principal); D64.9 Anemia, unspecified; N39.0 Urinary tract infection, site not specified; R80.9 Proteinuria, unspecified; M10.9 Gout, unspecified
CPT/HCPCS: 36415; 80053; 81003; 82570; 82728; 83540; 83550; 83735; 84100; 84156; 84550; 85027

== ENCOUNTER → 2020-01-09 | Outpatient (CLI) | payer OTHER ==
[2020-01-09 15:09] LABS: Basophils % (A) 0 %; Eosinophils # (A) 0.5 k/uL (0-0.7); Eosinophils % (A) 8 %; HCT 47.9 % (39.0-53.0); HGB 15.9 gm/dL (13.0-17.5); Lymphocytes # (A) 1.2 k/uL (1.0-4.8); Lymphocytes % (A) 18 %; MCH 28.1 pg (25.0-35.0); MCHC 33.3 g/dL (31.0-37.0); Mean Platelet Volume 7.3; Monocytes # (A) 0.4 k/uL (0-1.0); Monocytes % (A) 6 %; Neutrophils # (A) 4.3 k/uL (1.3-7.7); Neutrophils % (A) 65 %; Platelet Count 249 k/uL (150-450); RBC 5.67 m/uL (4.30-5.90); RDW 12.7 % (11.5-15.5); WBC 6.6 k/uL (4.0-11.0)
[2020-01-09 15:13] LABS: Appearance,Urine Clear (Clear); Bilirubin,Urine Negative (Negative); Blood,Urine Negative (Negative); Color,Urine Yellow; Glucose,Urine (UA) Negative (Negative); Ketones,Urine Negative (Negative); Leukocyte Esterase,Urine Negative (Negative); Mucus,Urine Rare /hpf; Nitrite,Urine Negative (Negative); PH, Urine 6.5 (5.0-8.0); Protein,Urine 1+ (Negative); RBC,Urine <1 /hpf (0-5); Specific Gravity,Urine 1.022 (1.001-1.035); Urobilinogen,Urine <2.0 mg/dL (<2.0); WBC,Urine <1 /hpf (0-5)
[2020-01-09 15:25] LABS: MCV 84.4 fL (80.0-100.0)
[2020-01-09 16:51] LABS: Creatinine,Urine Random 166.8 mg/dL; Protein/Creatinine Ratio,Urine 0.534
[2020-01-10 01:44] LABS: % Iron Saturation 61.59 (15.00-50.00); Albumin 4.5 g/dL (3.80-4.90); Albumin/Globulin Ratio 2.5 (1.60-3.17); Anion Gap 8.1 mmol/L (4.00-12.00); Calcium 9.8 mg/dL (8.7-10.3); Carbon Dioxide 27.9 mmol/L (21.6-31.8); Globulin 1.8 g/dL (1.6-3.3); Non-African American GFR(CKD) 107.9 (60.0-200.0); Potassium 4.5 mmol/L (3.5-5.5); Total Protein 6.3 g/dL (6.2-8.2)
[2020-01-10 01:47] LABS: Ferritin 66.7 ng/mL (22.0-322.0)
== END | disposition home or self-care (01) ==
LOC: LABWHC1 14:02
PROVIDERS: ATTEND Internal Medicine
DX: E55.9 Vitamin D deficiency, unspecified (principal); D64.9 Anemia, unspecified; R80.9 Proteinuria, unspecified; N39.0 Urinary tract infection, site not specified; N05.0 Unspecified nephritic syndrome with minor glomerular abnormality
CPT/HCPCS: 36415; 80053; 81001; 82306; 82570; 82728; 83540; 83550; 83735; 84156; 85025

== ENCOUNTER → 2020-02-18 | Outpatient (CLI) | payer BC, OTHER ==
[2020-02-18 14:00] LABS: HCT 45.7 % (39.0-53.0); HGB 15.4 gm/dL (13.0-17.5); MCH 28.9 pg (25.0-35.0); MCHC 33.7 g/dL (31.0-37.0); MCV 85.8 fL (80.0-100.0); Mean Platelet Volume 7.1; Platelet Count 248 k/uL (150-450); RBC 5.33 m/uL (4.30-5.90); RDW 12.1 % (11.5-15.5); WBC 7.5 k/uL (4.0-11.0)
[2020-02-18 14:25] LABS: Appearance,Urine Clear (Clear); Bilirubin,Urine Negative (Negative); Blood,Urine Negative (Negative); Color,Urine Yellow; Glucose,Urine (UA) Negative (Negative); Ketones,Urine Negative (Negative); Leukocyte Esterase,Urine Negative (Negative); Nitrite,Urine Negative (Negative); Protein,Urine Negative (Negative); Urobilinogen,Urine <2.0 mg/dL (<2.0)
[2020-02-18 14:51] LABS: Creatinine,Urine Random 257.3 mg/dL; Protein/Creatinine Ratio,Urine 0.027
[2020-02-18 21:05] LABS: % Iron Saturation 48.35 (15.00-50.00); Albumin 4.6 g/dL (3.80-4.90); Albumin/Globulin Ratio 2.56 (1.60-3.17); Anion Gap 5.5 mmol/L (4.00-12.00); BUN/Creat Ratio 15.56 Ratio (12.00-20.00); Calcium 9.3 mg/dL (8.7-10.3); Carbon Dioxide 26.5 mmol/L (21.6-31.8); Globulin 1.8 g/dL (1.6-3.3); Magnesium 1.8 mg/dL (1.5-2.4); Non-African American GFR(CKD) 122.5 (60.0-200.0); Potassium 4.3 mmol/L (3.5-5.5); Total Bilirubin 0.5 mg/dL (0.3-1.2); Total Protein 6.4 g/dL (6.2-8.2)
[2020-02-18 21:13] LABS: Ferritin 66.1 ng/mL (22.0-322.0)
== END | disposition home or self-care (01) ==
LOC: LABWHC1 12:07
PROVIDERS: ATTEND Nurse Practitioner Family
DX: N05.0 Unspecified nephritic syndrome with minor glomerular abnormality (principal); D64.9 Anemia, unspecified; N39.0 Urinary tract infection, site not specified; E55.9 Vitamin D deficiency, unspecified; R80.9 Proteinuria, unspecified
CPT/HCPCS: 36415; 80053; 81003; 82043; 82306; 82570; 82728; 83540; 83550; 83735; 84156; 85027

== ENCOUNTER → 2020-06-02 | Outpatient (CLI) | payer BC, OTHER ==
[2020-06-02 15:26] LABS: Appearance,Urine Clear (Clear); Bilirubin,Urine Negative (Negative); Blood,Urine Negative (Negative); Color,Urine Yellow; Glucose,Urine (UA) Negative (Negative); Ketones,Urine Negative (Negative); Leukocyte Esterase,Urine Negative (Negative); Nitrite,Urine Negative (Negative); PH, Urine 6.5 (5.0-8.0); Protein,Urine Negative (Negative); Specific Gravity,Urine 1.022 (1.001-1.035); Urobilinogen,Urine <2.0 mg/dL (<2.0)
[2020-06-02 15:40] LABS: Creatinine,Urine Random 189.4 mg/dL; Protein/Creatinine Ratio,Urine 0.042
[2020-06-02 18:24] LABS: HCT 48.2 % (39.6-50.0); HGB 15.6 g/dL (13.0-17.0); MCH 28.1 pg (27.0-32.0); MCHC 32.4 g/dL (32.0-37.0); MCV 86.7 fL (80.0-97.0); Mean Platelet Volume 10.4 fL (9.5-12.2); Platelet Count 266 X 10*3/uL (140-440); RBC 5.56 X 10*6/uL (4.40-5.60); RDW 12.7 % (11.5-14.5); WBC 7.27 X 10*3/uL (4.50-10.00)
[2020-06-02 19:36] LABS: % Iron Saturation 85.34 (15.00-50.00); Albumin 4.7 g/dL (3.80-4.90); Albumin/Globulin Ratio 2.47 (1.60-3.17); Anion Gap 3.7 mmol/L (4.00-12.00); BUN/Creat Ratio 14.44 Ratio (12.00-20.00); Calcium 9.9 mg/dL (8.7-10.3); Carbon Dioxide 28.3 mmol/L (21.6-31.8); Globulin 1.9 g/dL (1.6-3.3); Non-African American GFR(CKD) 122.5 (60.0-200.0); Phosphorus 4.6 mg/dL (2.4-5.1); Potassium 4.3 mmol/L (3.5-5.5); Total Protein 6.6 g/dL (6.2-8.2)
[2020-06-02 19:44] LABS: Ferritin 64.5 ng/mL (22.0-322.0)
[2020-06-03 02:01] LABS: Total Volume 24 Hour,Urine 1200 mL
== END | disposition home or self-care (01) ==
LOC: LABWHC1 14:29
PROVIDERS: ATTEND Nurse Practitioner Family
DX: N05.0 Unspecified nephritic syndrome with minor glomerular abnormality (principal); N39.0 Urinary tract infection, site not specified; E55.9 Vitamin D deficiency, unspecified; N25.81 Secondary hyperparathyroidism of renal origin; R80.9 Proteinuria, unspecified; D64.9 Anemia, unspecified
CPT/HCPCS: 36415; 80053; 81003; 81050; 82306; 82570; 82728; 83540; 83550; 83735; 84100; 84156; 85027

== ENCOUNTER 2020-07-21 18:14 | Inpatient (IN) | payer BC, OTHER ==
--- NOTE | 2020-07-21 18:54 | ED ---
General Adult HPI - General Chief complaint: Recheck/Abnormal Lab/Rx Stated complaint: Throat swelling up Time Seen by Provider: 07/21/20 18:35 Source: patient, RN notes reviewed, old records reviewed Mode of arrival: ambulatory Limitations: no limitations - History of Present Illness Initial comments: This is a 19-year-old male with a past medical history significant for nephrotic syndrome on and off for the last 5 years. Patient reports emergency department today because he has noticed swelling of his legs arms and face and some in his throat area. Patient states he's had no difficulty breathing but this all started yesterday and it got progressively worse per patient states typically the neck and face area get worse when he lays down. Patient states they never determine why he had nephrotic syndrome and there has been no ear and it comes and goes occasionally. Patient denies any recent fever chills or cough per patient denies any chest pain difficult breathing shortness of breath per patient denies any abdominal pain. Patient denies any dysuria or hematuria or urinary frequency. - Related Data Previous Rx's Medication Instructions Recorded Furosemide [Lasix] 40 mg PO DAILY #30 tab 10/03/19 Pantoprazole [Protonix] 40 mg PO DAILY #30 tablet. 10/03/19 Potassium Chloride ER [K-Dur 10] 10 meq PO DAILY #30 tab.er.prt 10/03/19 lisinopriL [Zestril] 5 mg PO DAILY #30 tab 10/03/19 predniSONE [Deltasone] 60 mg PO DAILY #90 tab 10/03/19 Allergies Allergy/AdvReac Type Severity Reaction Status Date / Time Penicillins Allergy Unknown Verified 07/21/20 18:37 Review of Systems ROS Statement: Those systems with pertinent positive or pertinent negative responses have been documented in the HPI. ROS Other: All systems not noted in ROS Statement are negative. Past Medical History Past Medical History: Asthma, Renal Disease Additional Past Medical History / Comment(s): nephrotic syndrome, asthma as a child History of Any Multi-Drug Resistant Organisms: None Reported Past Surgical History: No Surgical Hx Reported Past Anesthesia/Blood Transfusion Reactions: Unable to Obtain Additional Past Anesthesia/Blood Transfusion Reaction / Comment(s): Pt has never had surgery Past Psychological History: No Psychological Hx Reported Smoking Status: Never smoker Past Alcohol Use History: None Reported Past Drug Use History: None Reported - Past Family History Mother Additional Family Medical History / Comment(s): Mother has motion sickness. Pt cannot recall any other hx. Father History Unknown: Yes General Exam - General Exam Comments Initial Comments: GENERAL: Patient is well-developed and well-nourished. Patient is nontoxic and well- hydrated and is in mild distress. ENT: Neck is soft and supple. No significant lymphadenopathy is noted. Oropharynx is clear. Moist mucous membranes. Neck has full range of motion without eliciting any pain. EYES: The sclera were anicteric and conjunctiva were pink and moist. Extraocular movements were intact and pupils were equal round and reactive to light. Eyelids were unremarkable. PULMONARY: Unlabored respirations. Good breath sounds bilaterally. No audible rales rhonchi or wheezing was noted. CARDIOVASCULAR: There is a regular rate and rhythm without any murmurs gallops or rubs. ABDOMEN: Soft and nontender with normal bowel sounds. No palpable organomegaly was noted. There is no palpable pulsatile mass. SKIN: Skin is clear with no lesions or rashes and otherwise unremarkable. NEUROLOGIC: Patient is alert and oriented x3. Cranial nerves II through XII are grossly intact. Motor and sensory are also intact. Normal speech, volume and content. Symmetrical smile. MUSCULOSKELETAL: Normal extremities with adequate strength and full range of motion. Extremities appear to be swollen difficult to assess of the face is swollen secondary to not knowing his baseline. LYMPHATICS: No significant lymphadenopathy is noted PSYCHIATRIC: Normal psychiatric evaluation Limitations: no limitations Course Vital Signs 07/21/20 18:33 Temperature 98.0 F Pulse Rate 114 H Respiratory 22 Rate Blood Pressure 109/82 O2 Sat by Pulse 98 Oximetry Medical Decision Making - Medical Decision Making I spoke with Dr. Ford she agreed the patient needed to be admitted we admitted the patient and start him on Lasix 20 mg every 8 hours I spoke with Dr. Colbert she agreed to admit the patient admitted the patient wrote admitting orders. - Lab Data Result diagrams: 07/21/20 18:59 07/21/20 18:59 Lab Results 07/21/20 07/21/20 Range/Units 18:59 18:59 WBC 11.7 H (4.0-11.0) k/uL RBC 6.77 H (4.30-5.90) m/uL Hgb 19.2 H* (13.0-17.5) gm/dL Hct 55.4 H (39.0-53.0) % MCV 81.8 (80.0-100.0) fL MCH 28.4 (25.0-35.0) pg MCHC 34.7 (31.0-37.0) g/dL RDW 12.3 (11.5-15.5) % Plt Count 360 (150-450) k/uL MPV 7.1 Neutrophils % 83 % Lymphocytes % 9 % Monocytes % 5 % Eosinophils % 2 % Basophils % 0 % Neutrophils # 9.7 H (1.3-7.7) k/uL Lymphocytes # 1.1 (1.0-4.8) k/uL Monocytes # 0.6 (0-1.0) k/uL Eosinophils # 0.2 (0-0.7) k/uL Basophils # 0.0 (0-0.2) k/uL Sodium 127 L (137-145) mmol/L Potassium 4.0 (3.5-5.1) mmol/L Chloride 100 (98-107) mmol/L Carbon Dioxide 25 (22-30) mmol/L Anion Gap 2 mmol/L BUN 15 (9-20) mg/dL Creatinine 0.97 (0.66-1.25) mg/dL Est GFR (CKD-EPI)AfAm >90 (>60 ml/min/1.73 sqM) Est GFR (CKD-EPI)NonAf >90 (>60 ml/min/1.73 sqM) Glucose 107 H (74-99) mg/dL Calcium 7.7 L (8.4-10.2) mg/dL Magnesium 1.8 (1.6-2.3) mg/dL Total Bilirubin 0.3 (0.2-1.3) mg/dL AST 25 (17-59) U/L ALT 12 (4-49) U/L Alkaline Phosphatase 113 (38-126) U/L Total Protein 4.5 L (6.3-8.2) g/dL Albumin 1.9 L (3.5-5.0) g/dL Disposition Clinical Impression: Nephrotic syndrome Disposition: ADMITTED IP TO THIS [facility] Referrals: Chris Colbert DO [Primary Care Provider] - 1-2 days Time of Disposition: 20:43
[2020-07-21 19:05] LABS: Basophils % (A) 0 %; Eosinophils # (A) 0.2 k/uL (0-0.7); Eosinophils % (A) 2 %; Lymphocytes # (A) 1.1 k/uL (1.0-4.8); Lymphocytes % (A) 9 %; MCH 28.4 pg (25.0-35.0); MCHC 34.7 g/dL (31.0-37.0); MCV 81.8 fL (80.0-100.0); Mean Platelet Volume 7.1; Monocytes # (A) 0.6 k/uL (0-1.0); Monocytes % (A) 5 %; Neutrophils # (A) 9.7 k/uL (1.3-7.7); Neutrophils % (A) 83 %; Platelet Count 360 k/uL (150-450); RBC 6.77 m/uL (4.30-5.90); RDW 12.3 % (11.5-15.5); WBC 11.7 k/uL (4.0-11.0)
[2020-07-21 19:10] LABS: HCT 55.4 % (39.0-53.0)
[2020-07-21 19:12] LABS: HGB 19.2 gm/dL (13.0-17.5)
[2020-07-21 19:19] LABS: ALT 12 U/L (4-49); AST 25 U/L (17-59); African American GFR (CKD) >90 (>60 ml/min/1.73 sqM); Albumin 1.9 g/dL (3.5-5.0); Alkaline Phosphatase 113 U/L (38-126); Anion Gap 2 mmol/L; Blood Urea Nitrogen 15 mg/dL (9-20); Calcium 7.7 mg/dL (8.4-10.2); Carbon Dioxide 25 mmol/L (22-30); Chloride 100 mmol/L (98-107); Glucose 107 mg/dL (74-99); Magnesium 1.8 mg/dL (1.6-2.3); Non-African American GFR(CKD) >90 (>60 ml/min/1.73 sqM); Sodium 127 mmol/L (137-145); Total Bilirubin 0.3 mg/dL (0.2-1.3); Total Protein 4.5 g/dL (6.3-8.2)
[2020-07-21] MEDS ORDERED: FUROSEMIDE 10 MG/ML 4 ML VIAL IV STA (19:52)
[2020-07-21 21:33] LABS: Appearance,Urine Clear (Clear); Color,Urine Yellow; PH, Urine 6.5 (5.0-8.0); Specific Gravity,Urine >1.030 (1.001-1.035)
[2020-07-21 21:34] LABS: Bilirubin,Urine Negative (Negative); Blood,Urine Moderate (Negative); Glucose,Urine (UA) Negative (Negative); Ketones,Urine Negative (Negative); Protein,Urine 3+ (Negative); Urobilinogen,Urine <2.0 mg/dL (<2.0)
[2020-07-21 21:43] LABS: Leukocyte Esterase,Urine Negative (Negative); Nitrite,Urine Negative (Negative)
[2020-07-21 21:58] LABS: Hyaline Casts,Urine 17 /lpf (0-2); Mucus,Urine Occasional /hpf; RBC,Urine 1 /hpf (0-5); Squamous Epithelial Cell,Urine <1 /hpf (0-4); WBC,Urine 3 /hpf (0-5)
[2020-07-22] MEDS ORDERED: FUROSEMIDE 10 MG/ML 4 ML VIAL IV SCH (14:45)
--- NOTE | 2020-07-22 15:03 | PN ---
PROGRESS NOTE initially diagnosed in about 2014 and since then patient has had at least 5-6 relapses. He was initially being followed by a marketing officer in [place]. He has been following with us since September of 2019. The patient had his most recent relapse in September of 2019. He had repeat renal biopsy done at that time showed which showed minimal change disease. He responded very well to prednisone and this was subsequently being tapered off since May and June of this year. The patient was admitted to the hospital with complaints of increased swelling in his lower extremities. Increased puffiness and foamy urine. We have a 24 hour urine protein of 144 mg done during his last visit in May of 2020. Currently his UA shows 3+ protein. Albumin is low at 1.9. Serum creatinine about 0.9 mg/dL. PAST MEDICAL HISTORY: Minimal change disease, history of gastroesophageal reflux disease, asthma. PAST SURGICAL HISTORY: None except for kidney biopsies. SOCIAL HISTORY: Negative for smoking, drug abuse or alcohol abuse. MEDICATIONS: Medications at home prior to admission include: Lasix, Protonix, potassium, Zestril, Deltasone. ALLERGIES: ALLERGIES include PENICILLIN. REVIEW OF SYSTEMS: As per HPI. Other systems negative. EXAMINATION: Currently comfortable, awake, not in any acute distress. Alert, oriented x3. Blood pressure 130/83, heart rate 81 per minute. He is afebrile. Examination of the heart S1, S2. Examination of the lungs, bilateral breath sounds are heard. Abdomen is soft, nontender. Examination of lower extremities shows edema 1+ bilaterally. ELECTROPHYSIOLOGY SCIENTIST exam grossly intact. LAB: Show hemoglobin 19.2, sodium 137, potassium 4.0, serum creatinine 0.97, serum albumin 1.9. UA shows 3+ protein. Moderate blood is seen. ASSESSMENT: 1. 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 Last relapse was in September of 2019, status post treatment with prednisone. The patient had a kidney biopsy done in September of 2019 as well. I will resume the prednisone at 60 mg. Patient will also need a steroid sparing treatment with Prograf and he will likely need to stay on it to continue to maintain remission. A 24 hour urine for protein has been ordered already. The patient will be started on aspirin as well. 2. Hyponatremia associated with nephrotic syndrome and currently hypervolemic, started on Lasix. PLAN: Continue with Lasix. Repeat labs in a.m. Start prednisone and patient will likely need Prograf versus Rituxan down the road to maintain remission. Thank you for this consultation. We will continue to follow the patient with you during his hospitalization. MMODL / IJN: [id number] /
[2020-07-22] MEDS: predniSONE 20 MG TAB PO SCH (15:14)
--- NOTE | 2020-07-22 16:36 | P.HPIM ---
History of Present Illness H&P Date: 07/22/20 Chief Complaint: Edema, concentrated This a 19-year-old gentleman with history of nephrotic syndrome since his teen years, 2014, presented to the ER with complaints of edema, concentrated foamy urine, recognizing he was in acute exacerbation of his nephrotic syndrome. Last relapse 09/26. Maintenance prednisone had been tapered off since about May. Denies dysuria, no hematuria. Denies any chest pain, palpitations, shortness of breath. Denies any fever or chills. Denies any cough. Denies nausea vomiting or diarrhea. Denies abdominal pain. Afebrile, mildly elevated WBC 11.7, hemoglobin 19.2, platelets 360, sodium 127, potassium 4 BUN 15 and 0.97, magnesium 1.8, albumin 1.9 UA occasional mucus, hyalin casts H, 3+ protein. 24 hour urine in progress for protein.Receiving Lasix and prednisone as directed per nephrology with improvement in edema. Review of Systems ROS Statement: Those systems with pertinent positive or pertinent negative responses have been documented in the HPI. ROS Other: All systems not noted in ROS Statement are negative. Past Medical History Past Medical History: Asthma, Renal Disease Additional Past Medical History / Comment(s): nephrotic syndrome, asthma as a child History of Any Multi-Drug Resistant Organisms: None Reported Past Surgical History: No Surgical Hx Reported Past Anesthesia/Blood Transfusion Reactions: Unable to Obtain Additional Past Anesthesia/Blood Transfusion Reaction / Comment(s): Pt has never had surgery Past Psychological History: No Psychological Hx Reported Smoking Status: Never smoker Past Alcohol Use History: None Reported Past Drug Use History: None Reported - Past Family History Mother Additional Family Medical History / Comment(s): Mother has motion sickness. Pt cannot recall any other hx. Father History Unknown: Yes Medications and Allergies Home Medications Medication Instructions Recorded Confirmed Type No Known Home Medications 07/21/20 07/21/20 History Allergies Allergy/AdvReac Type Severity Reaction Status Date / Time Penicillins Allergy Unknown Verified 07/21/20 21:22 Physical Exam Vitals: Vital Signs Temp Pulse Pulse Resp BP BP Pulse Ox 07/22/20 07:00 98.1 F 81 16 130/83 99 07/21/20 18:33 98.0 F 114 H 22 109/82 98 Intake and Output 07/21/20 07/22/20 07/22/20 22:59 06:59 14:59 Output Total 225 Balance -225 Output: Urine 225 Other: Voiding Method Toilet Toilet Urinal # Voids 1 Weight 81.647 kg PHYSICAL EXAM: VITAL SIGNS: As above GENERAL: Sitting up in bed, no acute distress HEENT: Conjunctivae normal. eyes normal. Mucosa moist. NECK: No JVD. No thyroid enlargement. No LNs CARDIOVASCULAR: S1, S2 regular. No murmur RESPIRATION: Breath sounds diminished in the bases. No rhonchi or crackles. No bronchial breathing. ABDOMEN: Soft, nontender . No guarding. no masses palpable. No ascites, No hepatosplenomegaly.Bowel sounds heard. LEGS: Bilateral lower extremity edema, denies calf pain. Positive DP pulses. PSYCHIATRY: Alert and oriented X3, mood and affect normal. NERVOUS SYSTEM: Cranial N 2-12 grossly normal. Moves all 4 limbs. No focal deficits. Strength and sensation grossly intact.. Skin: Warm, dry, no rash Lymphatic system. No LN neck axilla. Results CBC & Chem 7: 07/21/20 18:59 07/21/20 18:59 Labs: Abnormal Lab Results - Last 24 Hours (Table) 07/21/20 07/21/20 07/21/20 Range/Units 18:59 18:59 18:59 WBC 11.7 H (4.0-11.0) k/uL RBC 6.77 H (4.30-5.90) m/uL Hgb 19.2 H* (13.0-17.5) gm/dL Hct 55.4 H (39.0-53.0) % Neutrophils # 9.7 H (1.3-7.7) k/uL Sodium 127 L (137-145) mmol/L Glucose 107 H (74-99) mg/dL Calcium 7.7 L (8.4-10.2) mg/dL Total Protein 4.5 L (6.3-8.2) g/dL Albumin 1.9 L (3.5-5.0) g/dL Hyaline Casts 17 H (0-2) /lpf Urine Mucus Occasional H (None) /hpf Assessment and Plan Assessment: Nephrotic syndrome, in a patient with last relapse 09/26, tapered off of maintenance prednisone. Proteinuria secondary to the above Bilateral lower extremity edema secondary to the above Hyponatremia, hypervolemic secondary to nephrotic syndrome History of childhood asthma, stable Plan: Continue on current medication regime ,monitoring and symptomatic treatmen t. Diuretics/steroids as per nephrology. PPI for GI prophylaxis. The impression and plan of care has been dictated as directed. : I performed a history and examination of this patient, discussed the same with the dictator. I agree with the dictator's note ,documented as a scribe. Any additional findings or plans will be noted.
[2020-07-22 17:28] LABS: Glucose,Whole Blood 111 mg/dL (75-99)
[2020-07-22] MEDS: INSULIN ASPART (NovoLOG) 100 UNIT/ML VIAL SQ SCH ×2 (17:45→21:12)
[2020-07-22] MEDS: FUROSEMIDE 10 MG/ML 4 ML VIAL IV SCH (18:07)
[2020-07-22 20:42] LABS: Glucose,Whole Blood 107 mg/dL (75-99)
[2020-07-22] MEDS: ONDANSETRON 4 MG/2 ML VIAL IVP PRN (22:41)
[2020-07-23] MEDS: FUROSEMIDE 10 MG/ML 4 ML VIAL IV SCH ×2 (05:38→18:05)
[2020-07-23 06:52] LABS: Glucose,Whole Blood 134 mg/dL (75-99)
[2020-07-23] MEDS: predniSONE 20 MG TAB PO SCH (07:13)
[2020-07-23] MEDS: ONDANSETRON 4 MG/2 ML VIAL IVP PRN ×2 (07:16→21:17)
[2020-07-23] MEDS: INSULIN ASPART (NovoLOG) 100 UNIT/ML VIAL SQ SCH ×4 (07:24→21:09)
[2020-07-23] MEDS ORDERED: PANTOPRAZOLE 40 MG TABLET PO SCH (07:30)
[2020-07-23 11:56] LABS: Basophils # (A) 0.03 X 10*3/uL (0.00-0.10); Basophils % (A) 0.3 %; Eosinophils # (A) 0.01 X 10*3/uL (0.04-0.35); Eosinophils % (A) 0.1 %; HCT 60.5 % (39.6-50.0); HGB 20.4 g/dL (13.0-17.0); Lymphocytes # (A) 0.81 X 10*3/uL (0.90-5.00); Lymphocytes % (A) 7.7 %; MCH 28.1 pg (27.0-32.0); MCHC 33.7 g/dL (32.0-37.0); MCV 83.2 fL (80.0-97.0); Mean Platelet Volume 10.5 fL (9.5-12.2); Monocytes # (A) 0.28 X 10*3/uL (0.20-1.00); Monocytes % (A) 2.7 %; Neutrophils # (A) 9.33 X 10*3/uL (1.80-7.70); Neutrophils % (A) 88.3 %; Platelet Count 433 X 10*3/uL (140-440); RBC 7.27 X 10*6/uL (4.40-5.60); WBC 10.56 X 10*3/uL (4.50-10.00)
[2020-07-23 11:57] LABS: Acanthocytes 2+
[2020-07-23 12:07] LABS: Glucose,Whole Blood 113 mg/dL (75-99)
[2020-07-23] MEDS ORDERED: METOCLOPRAMIDE 5 MG TAB PO STA (12:34)
[2020-07-23] MEDS: PANTOPRAZOLE 40 MG/10 ML VIAL IVP SCH (12:49)
[2020-07-23] MEDS ORDERED: METOCLOPRAMIDE 5 MG/ML 2 ML VIAL IVP PRN (14:21)
--- NOTE | 2020-07-23 14:37 | P.PN ---
Subjective Progress Note Date: 07/23/20 This a 19-year-old gentleman with history of nephrotic syndrome since his teen years, 2015, presented to the ER with complaints of edema, concentrated foamy urine, recognizing he was in acute exacerbation of his nephrotic syndrome. Last relapse 09/26. Maintenance prednisone had been tapered off since about May. Denies dysuria, no hematuria. Denies any chest pain, palpitations, shortness of breath. Denies any fever or chills. Denies any cough. Denies nausea vomiting or diarrhea. Denies abdominal pain. Afebrile, mildly elevated WBC 11.7, hemoglobin 19.2, platelets 360, sodium 127, potassium 4 BUN 15 and 0.97, magnesium 1.8, albumin 1.9 UA occasional mucus, hyalin casts H, 3+ protein. 24 hour urine in progress for protein.Receiving Lasix and prednisone as directed per nephrology with improvement in edema. 07/23/2020 nauseated last night, reports feels "puffy". He felt like his possibly retaining urine Continues on steroids and diuretics as per nephrology. 24 hour urine completed, results pending. Labs pending. Objective - Vital Signs Vital signs: Vital Signs Temp 97.9 F 07/23/20 06:49 Pulse 117 H 07/23/20 06:49 Resp 18 07/23/20 14:00 BP 136/79 07/23/20 06:49 Pulse Ox 98 07/23/20 06:49 Intake & Output 07/22/20 07/23/20 07/23/20 18:59 06:59 18:59 Output Total 300 400 Balance -300 -400 Weight 81.647 kg Output: Urine 300 400 Other: Voiding Method Toilet Urinal # Voids 1 1 3 - Exam PHYSICAL EXAM: VITAL SIGNS: As above GENERAL: Sitting up in bed, no acute distress HEENT: Conjunctivae normal. eyes normal. Mucosa moist. NECK: No JVD. No thyroid enlargement. No LNs CARDIOVASCULAR: S1, S2 regular. No murmur RESPIRATION: Breath sounds diminished in the bases. No rhonchi or crackles. No wheezing. ABDOMEN: Soft,nontender.No guarding.no masses palpable. No ascites.Bowel sounds heard. LEGS: Bilateral lower extremity edema, improving, denies calf pain. Positive DP pulses. PSYCHIATRY: Alert and oriented X3, mood and affect normal. NERVOUS SYSTEM: Cranial N 2-12 grossly normal. Moves all 4 limbs. No focal deficits. Strength and sensation grossly intact. Skin: Warm, dry, no rash. - Labs CBC & Chem 7: 07/23/20 04:36 07/21/20 18:59 Labs: Abnormal Lab Results - Last 24 Hours (Table) 07/22/20 07/22/20 07/23/20 Range/Units 17:27 20:41 04:36 WBC 10.56 H (4.50-10.00) X 10*3/uL RBC 7.27 H (4.40-5.60) X 10*6/uL Hgb 20.4 H* (13.0-17.0) g/dL Hct 60.5 H* (39.6-50.0) % Immature Gran # 0.10 H (0.00-0.04) X 10*3/uL Neutrophils # 9.33 H (1.80-7.70) X 10*3/uL Lymphocytes # 0.81 L (0.90-5.00) X 10*3/uL Eosinophils # 0.01 L (0.04-0.35) X 10*3/uL POC Glucose (mg/dL) 111 H 107 H (75-99) mg/dL 07/23/20 07/23/20 Range/Units 06:51 12:05 WBC (4.50-10.00) X 10*3/uL RBC (4.40-5.60) X 10*6/uL Hgb (13.0-17.0) g/dL Hct (39.6-50.0) % Immature Gran # (0.00-0.04) X 10*3/uL Neutrophils # (1.80-7.70) X 10*3/uL Lymphocytes # (0.90-5.00) X 10*3/uL Eosinophils # (0.04-0.35) X 10*3/uL POC Glucose (mg/dL) 134 H 113 H (75-99) mg/dL Assessment and Plan Assessment: Nephrotic syndrome, in a patient with last relapse 09/26, tapered off of maintenance prednisone. Proteinuria secondary to the above Bilateral lower extremity edema secondary to the above Hyponatremia, hypervolemic secondary to nephrotic syndrome History of childhood asthma, stable Plan: Continue on current medication regime ,monitoring and symptomatic treatment. Labs pending. 24-hour urine results pending .Diuretics/steroids as per nephrology. PPI. The impression and plan of care has been dictated as directed. : I performed a history and examination of this patient, discussed the same with the dictator. I agree with the dictator's note ,documented as a scribe. Any additional findings or plans will be noted.
--- NOTE | 2020-07-23 15:03 | PN ---
PROGRESS NOTE Patient is seen for followup for proteinuria. The patient has underlying minimal change disease, which has relapsed. He was recently taken off steroids. Kidney biopsy was done in September of 2019. The patient was admitted to the hospital with complaints of edema. His UA had shown 3+ protein, 24 hour urine has been ordered, currently pending. Patient was started on prednisone again. However, he is complaining of significant nausea. I have started him on the Protonix as well. However if his nausea does not improve, he may need EGD for possible underlying gastritis secondary to the steroids. PHYSICAL EXAMINATION: On examination today, blood pressure 136/79, heart rate 117 per minute. Patient is afebrile. Examination of the heart S1, S2. Examination of the lungs, bilateral breath sounds are heard. Abdomen is soft, nontender. Examination of lower extremities shows no edema. SHIFT LEADER exam grossly intact. LAB: Show hemoglobin 20.4, white cell count is 10.5, BMP is pending. Creatinine was 0.97 on 07/21/2020. ASSESSMENT: 1. Minimal change disease with relapse status post recent treatment with prednisone after relapse in September of 2019. Currently back on prednisone. Consider adding Prograf/Rituxan as outpatient to maintain remission. 2. Polycythemia. 3. Nausea possibly related to underlying gastritis from steroids. The patient is maintained on Protonix. We can continue with Zofran. 4. Hyponatremia, mostly hypervolemic, started on Lasix. Labs are pending from today. PLAN: Continue with Lasix. Add oral Reglan x1. Continue with Zofran. Change Protonix to IV. Check labs today. Continue with prednisone for now. Awaiting 24 hour urine results. MMODL / IJN: [id number] /
[2020-07-23 16:51] LABS: Total Volume 24 Hour,Urine 1050 mL
[2020-07-23 17:31] LABS: Glucose,Whole Blood 102 mg/dL (75-99)
[2020-07-23 19:16] LABS: Calcium 7.1 mg/dL (8.7-10.3); Non-African American GFR(CKD) 107.9 (60.0-200.0); Potassium 5.3 mmol/L (3.5-5.5)
[2020-07-23 21:10] LABS: Glucose,Whole Blood 104 mg/dL (75-99)
[2020-07-24] MEDS: FUROSEMIDE 10 MG/ML 4 ML VIAL IV SCH (06:09)
[2020-07-24 07:39] LABS: Glucose,Whole Blood 110 mg/dL (75-99)
[2020-07-24 08:15] VITALS: BP 138/82; PULSE 86; RESP 17; TEMP 97.8
[2020-07-24] MEDS: INSULIN ASPART (NovoLOG) 100 UNIT/ML VIAL SQ SCH ×2 (08:52→13:15)
[2020-07-24] MEDS: predniSONE 20 MG TAB PO SCH (09:09)
[2020-07-24] MEDS: ONDANSETRON 4 MG/2 ML VIAL IVP PRN (09:09)
[2020-07-24] MEDS: PANTOPRAZOLE 40 MG/10 ML VIAL IVP SCH (09:09)
[2020-07-24 12:16] LABS: Glucose,Whole Blood 101 mg/dL (75-99)
--- NOTE | 2020-07-24 12:49 | P.PN ---
Subjective Progress Note Date: 07/24/20 This a 19-year-old gentleman with history of nephrotic syndrome since his teen years, 2015, presented to the ER with complaints of edema, concentrated foamy urine, recognizing he was in acute exacerbation of his nephrotic syndrome. Last relapse 09/26. Maintenance prednisone had been tapered off since about May. Denies dysuria, no hematuria. Denies any chest pain, palpitations, shortness of breath. Denies any fever or chills. Denies any cough. Denies nausea vomiting or diarrhea. Denies abdominal pain. Afebrile, mildly elevated WBC 11.7, hemoglobin 19.2, platelets 360, sodium 127, potassium 4 BUN 15 and 0.97, magnesium 1.8, albumin 1.9 UA occasional mucus, hyalin casts H, 3+ protein. 24 hour urine in progress for protein.Receiving Lasix and prednisone as directed per nephrology with improvement in edema. 07/23/2020 nauseated last night, reports feels "puffy". He felt like his possibly retaining urine Continues on steroids and diuretics as per nephrology. 24 hour urine completed, results pending. Labs pending. 07/24/2020initially planned for discharge today but minimal diet intake, persistent nausea with dry heaving persists. Mild constipation. Maintained on Zofran, Reglan, PPI. 24-hour urine/protein results pending. Afebrile. Objective - Vital Signs Vital signs: Vital Signs Temp 97.8 F 07/24/20 07:00 Pulse 86 07/24/20 07:00 Resp 17 07/24/20 07:00 BP 138/82 07/24/20 07:00 Pulse Ox 97 07/24/20 07:00 Intake & Output 07/23/20 07/24/20 07/24/20 18:59 06:59 18:59 Other: Voiding Method Toilet Urinal # Voids 7 3 # Bowel Movements 0 - Exam PHYSICAL EXAM: VITAL SIGNS: As above GENERAL: Standing up, no acute distress HEENT: Conjunctivae normal. eyes normal. Mucosa moist. NECK: No JVD. No thyroid enlargement. No LNs CARDIOVASCULAR: S1, S2 regular. No murmur RESPIRATION: Breath sounds diminished in the bases. No rhonchi or crackles. No wheezing. ABDOMEN: Soft,nontender.No guarding.no masses palpable. No ascites.Bowel sounds heard. LEGS: Bilateral lower extremity edema, improving, denies calf pain. Positive DP pulses. PSYCHIATRY: Alert and oriented X3, mood and affect normal. NERVOUS SYSTEM: Cranial N 2-12 grossly normal. Moves all 4 limbs. No focal deficits. Skin: Warm, dry, no rash. - Labs CBC & Chem 7: 07/23/20 04:36 07/23/20 04:36 Labs: Abnormal Lab Results - Last 24 Hours (Table) 07/23/20 07/23/20 07/23/20 Range/Units 04:36 17:30 21:08 Sodium 130 L (135-145) mmol/L Chloride 94 L (96-109) mmol/L Carbon Dioxide 17.0 L (21.6-31.8) mmol/L Anion Gap 19.00 H (4.00-12.00) mmol/L BUN/Creatinine Ratio 23.00 H (12.00-20.00) Ratio Glucose 119 H (70-110) mg/dL POC Glucose (mg/dL) 102 H 104 H (75-99) mg/dL Calcium 7.1 L (8.7-10.3) mg/dL 07/24/20 07/24/20 Range/Units 07:38 12:14 Sodium (135-145) mmol/L Chloride (96-109) mmol/L Carbon Dioxide (21.6-31.8) mmol/L Anion Gap (4.00-12.00) mmol/L BUN/Creatinine Ratio (12.00-20.00) Ratio Glucose (70-110) mg/dL POC Glucose (mg/dL) 110 H 101 H (75-99) mg/dL Calcium (8.7-10.3) mg/dL Assessment and Plan Assessment: Nephrotic syndrome, in a patient with last relapse 09/26, tapered off of maintenance prednisone. Proteinuria secondary to the above Bilateral lower extremity edema secondary to the above Hyponatremia, hypervolemic secondary to nephrotic syndrome History of childhood asthma, stable Plan: Continue on current medication regime ,monitoring and symptomatic treatment. 24-hour urine results pending .Nephrology requesting GI consult, related to ongoing nausea as patient will need to be discharged on steroids.Diuretics/steroids as per nephrology. PPI. Discharge planning in progress for tomorrow The impression and plan of care has been dictated as directed. .: I performed a history and examination of this patient, discussed the same with the dictator. I agree with the dictator's note ,documented as a scribe. Any additional findings or plans will be noted.
--- NOTE | 2020-07-24 13:42 | P.DS ---
Providers Date of admission: 07/23/20 08:48 Expected date of discharge: 07/24/20 Attending physician: Chris Colbert Consults: 07/21/20 20:43 Consult Physician Urgent Consulting Provider: Sofia Ford Consult Reason/Comments: Nephrotic syndrome Do you want consulting provider notified?: Yes, Notify in am 07/24/20 11:09 Consult Physician Routine Consulting Provider: Saumya Cuevas Consult Reason/Comments: intractable nausea/dry heaving Do you want consulting provider notified?: Yes Primary care physician: Chris Colbert Hospital Course: Final Diagnoses: Nephrotic syndrome, in a patient with last relapse 09/26, tapered off of maintenance prednisone. Proteinuria secondary to the above Bilateral lower extremity edema secondary to the above Hyponatremia, hypervolemic secondary to nephrotic syndrome History of childhood asthma, stable Hospital course:This a 19-year-old gentleman with history of nephrotic syndrome since his teen years, 2014, presented to the ER with complaints of edema, concentrated foamy urine, recognizing he was in acute exacerbation of his nephrotic syndrome. Last relapse 09/26. Maintenance prednisone had been tapered off since about May. Denies dysuria, no hematuria. Denies any chest pain, palpitations, shortness of breath. Denies any fever or chills. Denies any cough. Denies nausea vomiting or diarrhea. Denies abdominal pain. Afebrile, mildly elevated WBC 11.7, hemoglobin 19.2, platelets 360, sodium 127, potassium 4 BUN 15 and 0.97, magnesium 1.8, albumin 1.9 UA occasional mucus, hyalin casts H, 3+ protein. 24 hour urine in progress for protein.Receiving Lasix and prednisone as directed per nephrology with improvement in edema. 07/23/2020 nauseated last night, reports feels "puffy". He felt like his possibly retaining urine Continues on steroids and diuretics as per nephrology. 24 hour urine completed, results pending. Labs pending. 07/24/2020initially planned for discharge today but minimal diet intake, persistent nausea with dry heaving persists. Mild constipation. Maintained on Zofran, Reglan, PPI. 24-hour urine/protein results pending. Afebrile. Significant clinical improvement by lunch time, patient had consumed pizza with no further nausea. Evaluated by GI with no further recommendations and cleared for discharge. Nephrology recommended continuing steroids at 60 mg daily and follow-up in one week. Patient will be discharged home today in stable condition with guarded prognosis. The impression and plan of care has been dictated as directed. : I performed a history and examination of this patient, discussed the same with the dictator. I agree with the dictator's note ,documented as a scribe. Any additional findings or plans will be noted. Patient Condition at Discharge: Stable Plan - Discharge Summary Discharge Rx Participant: No New Discharge Prescriptions: New Ondansetron Odt [Zofran Odt] 4 mg PO Q8HR PRN #21 tab PRN Reason: Nausea predniSONE [Deltasone] 60 mg PO DAILY #42 tab Pantoprazole Sodium [Protonix] 40 mg PO DAILY #30 tablet. Discharge Medication List Ondansetron Odt [Zofran Odt] 4 mg PO Q8HR PRN #21 tab 07/24/20 [Rx] Pantoprazole Sodium [Protonix] 40 mg PO DAILY #30 tablet. 07/24/20 [Rx] predniSONE [Deltasone] 60 mg PO DAILY #42 tab 07/24/20 [Rx] Follow up Appointment(s)/Referral(s): Sofia Ford MD [STAFF PHYSICIAN] - 1 Week Chris Colbert DO [Primary Care Provider] - 3 Days Activity/Diet/Wound Care/Special Instructions: Off work for the rest of this week.
--- NOTE | 2020-07-24 14:22 | PN ---
PROGRESS NOTE Patient is seen for followup for recurrent minimal change disease. Steroids have been restarted. The patient's 24 hour urine for protein is currently pending. He is complaining of nausea and has not been able to eat much. PHYSICAL EXAMINATION: On examination today, blood pressure is 148/76, heart rate 102 per minute, he is afebrile. Examination of the lower extremities shows no evidence of edema. Patient is euvolemic. [employer] exam grossly intact. Abdomen is soft. LAB: Show sodium 130 from 07/23/2020, potassium 5.3, serum creatinine 1.0. ASSESSMENT: 1. 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 2. Nausea and vomiting, possible underlying gastritis, started on proton pump inhibitors. The patient may need GI evaluation if he is not improved. 3. Lower extremity edema from nephrotic syndrome, status post IV Lasix. I will discontinue the Lasix. PLAN: DC Lasix. Continue prednisone. Consider GI evaluation if the nausea persists. MMODL / IJN: [id number] /
--- NOTE | 2020-07-24 14:37 | P.CONS ---
History of Present Illness - Reason for Consult Consult date: 07/24/20 Nausea and vomiting Requesting physician: Chris Colbert - Chief Complaint Edema - History of Present Illness This is a pleasant 19-year-old white male who presented to the emergency department 3 days ago with complaints of increased edema and foamy urine which he correlated with previous acute exacerbation of nephrotic syndrome. He has a past medical history including nephrotic syndrome since he was a teenager, diagnosed 2014 and follows with nephrology. He eats he has been on prednisone, but ran out the last 2 weeks and did not get it refilled. He was started on pr ednisone this admission, stated he has been having nausea and vomiting for the last 3-4 days duration. He states he has not had this before with his nephrotic syndrome and thinks it is different. However he states he is feeling better today and not having any vomiting, had a little dry heaves this morning was able to see a good lunch with pizza. Has not had any vomiting since. He denies any abdominal pain or diarrhea. States he is last bowel movement was Tuesday. Recent blood work shows WBC 10.56, hemoglobin 20.4, hematocrit 60.5, platelet count 433,000, total bilirubin 0.3, alkaline phosphatase 113, AST 25, ALT 12. Review of Systems REVIEW OF SYSTEMS: CARDIOPULMONARY: No chest pain or shortness of breath. Gastrointestinal: No abdominal pain. Positive nausea and vomiting. No hematemesis, coffee-ground emesis. No rectal bleeding, or melena. GENITOURINARY: No dysuria or hematuria. MUSCULOSKELETAL: Reports normal range of motion., Joint pain. SKIN: No rashes. No jaundice. ENDOCRINE: No chills, fevers. No excessive weight gain or loss. No polydipsia or polyuria. Edema, history of nephrotic syndrome. PSYCHIATRIC: Unremarkable. NEUROLOGY: No change in mental status. Denies dizziness, headache. ENT: Vision unremarkable. CONSTITUTIONAL: No recent weight loss. No fever, chills, night sweats. Past Medical History Past Medical History: Asthma, Renal Disease Additional Past Medical History / Comment(s): nephrotic syndrome, asthma as a ch ild History of Any Multi-Drug Resistant Organisms: None Reported Past Surgical History: No Surgical Hx Reported Additional Past Surgical History / Comment(s): L renal parenchymal biopsy Past Anesthesia/Blood Transfusion Reactions: Unable to Obtain Additional Past Anesthesia/Blood Transfusion Reaction / Comm: Pt has never had surgery Past Psychological History: No Psychological Hx Reported Smoking Status: Never smoker Past Alcohol Use History: None Reported Past Drug Use History: None Reported - Past Family History Mother Additional Family Medical History / Comment(s): Mother has motion sickness. Pt cannot recall any other hx. Father History Unknown: Yes Medications and Allergies Home Medications Medication Instructions Recorded Confirmed Type Ondansetron Odt [Zofran Odt] 4 mg PO Q8HR PRN #21 tab 07/24/20 Rx Pantoprazole Sodium [Protonix] 40 mg PO DAILY #30 tablet. 07/24/20 Rx predniSONE [Deltasone] 60 mg PO DAILY #42 tab 07/24/20 Rx Allergies Allergy/AdvReac Type Severity Reaction Status Date / Time Penicillins Allergy Unknown Verified 07/21/20 21:22 Physical Exam Vitals: Vital Signs Temp Pulse Resp BP Pulse Ox 07/24/20 07:00 97.8 F 86 17 138/82 97 07/24/20 02:10 97.7 F 102 H 18 148/76 98 07/23/20 21:24 97.9 F 93 14 142/83 98 07/23/20 14:00 18 07/23/20 13:58 98.0 F 105 H 16 129/81 97 Intake and Output 07/23/20 07/24/20 07/24/20 22:59 06:59 14:59 Other: Voiding Method Toilet Urinal # Voids 2 3 General appearance: The patient is alert, oriented, appears in no acute distress. HET: Head is normocephalic and atraumatic. Conjunctiva pink. Sclera anicteric. Neck: Supple without lymphadenopathy. Trachea midline. Heart: S1 S2. Regular rate and rhythm. Lungs: Clear to auscultation. Abdomen: Soft, nontender, nondistended with bowel sounds. No guarding or rigidity. Skin: No rashes. No jaundice. Extremities: Normal skin color and turgor. Bilateral pedal edema. Neurological: No focal deficits. Alert and oriented. Results CBC & Chem 7: 07/23/20 04:36 07/23/20 04:36 Labs: Abnormal Lab Results - Last 24 Hours (Table) 07/23/20 07/23/20 07/23/20 Range/Units 04:36 17:30 21:08 Sodium 130 L (135-145) mmol/L Chloride 94 L (96-109) mmol/L Carbon Dioxide 17.0 L (21.6-31.8) mmol/L Anion Gap 19.00 H (4.00-12.00) mmol/L BUN/Creatinine Ratio 23.00 H (12.00-20.00) Ratio Glucose 119 H (70-110) mg/dL POC Glucose (mg/dL) 102 H 104 H (75-99) mg/dL Calcium 7.1 L (8.7-10.3) mg/dL 07/24/20 Range/Units 07:38 Sodium (135-145) mmol/L Chloride (96-109) mmol/L Carbon Dioxide (21.6-31.8) mmol/L Anion Gap (4.00-12.00) mmol/L BUN/Creatinine Ratio (12.00-20.00) Ratio Glucose (70-110) mg/dL POC Glucose (mg/dL) 110 H (75-99) mg/dL Calcium (8.7-10.3) mg/dL Assessment and Plan (1) Nausea and vomiting Narrative/Plan: 19-year-old male who presented to the emergency department 3 days ago with in creased edema and foamy urine with a past medical history of nephrotic syndrome diagnosed in his teens. He follows with nephrology, he had recently been on a tapered dose of steroids, he states he ran out 1-2 weeks ago and did not get a refill. States he has been on steroids for several years. He was restarted this admission on prednisone 60 mg daily. Reportedly been having some nausea and vomiting this admission, states improving. Was able to eat lunch today which included pizza with no vomiting. Gastroenterology was asked to see patient regarding nausea and vomiting. He denies any coffee-ground emesis or hematemesis. Denies any black stools or blood in his stool. Nausea and vomitin g has improved, again patient is tolerating eating a regular diet. Status: Acute Code(s): R11.2 - NAUSEA WITH VOMITING, UNSPECIFIED SNOMED Code(s): 88908835 (2) Nephrotic syndrome Status: Acute Code(s): N04.9 - NEPHROTIC SYNDROME WITH UNSPECIFIED MORPHOLOGIC CHANGES SNOMED Code(s): 29557234 Plan: 1. Continue antibiotics 2. Protonix 40 mg twice a day 3. Continue symptomatic and supportive care 4. Diet as tolerated 5. Plans on endoscopic evaluation, symptoms have improved. Patient may be discharged home from a gastroenterology standpoint. Thank you for this consultation, we will sign off at this time. Dr. Radha Cuevas I agree with the dictator's note, documented as a scribe by Gema Don.
[2020-07-25 02:21] LABS: Total Protein 24 Hour,Urine 32056.5 mg/24Hr
== END 2020-07-24 14:10 | disposition home or self-care (01) | DRG 699 ==
LOC: EC 18:14 → 6NMEDSUR 20:44 → OBSVTOIN 07-23 08:48
PROVIDERS: ADMIT Family Medicine; ATTEND Family Medicine
DX: N04.9 Nephrotic syndrome with unspecified morphologic changes (principal); E87.1 Hypo-osmolality and hyponatremia; E87.70 Fluid overload, unspecified; K29.70 Gastritis, unspecified, without bleeding; K21.9 Gastro-esophageal reflux disease without esophagitis; J45.909 Unspecified asthma, uncomplicated; D75.1 Secondary polycythemia; K59.00 Constipation, unspecified; R60.0 Localized edema; Z20.822 Contact with and (suspected) exposure to COVID-19
CPT/HCPCS: 36415; 80048; 80053; 81001; 81050; 83735; 84156; 85025; 87635; 96374; 99284

== ENCOUNTER → 2020-08-20 | Outpatient (CLI) | payer BC, OTHER ==
[2020-08-20 12:07] LABS: Appearance,Urine Clear (Clear); Bilirubin,Urine Negative (Negative); Blood,Urine Negative (Negative); Color,Urine Yellow; Glucose,Urine (UA) Negative (Negative); Ketones,Urine Negative (Negative); Leukocyte Esterase,Urine Negative (Negative); Nitrite,Urine Negative (Negative); PH, Urine 5.5 (5.0-8.0); Protein,Urine Trace (Negative); Specific Gravity,Urine 1.026 (1.001-1.035); Urobilinogen,Urine <2.0 mg/dL (<2.0)
[2020-08-20 13:13] LABS: Creatinine,Urine Random 364.9 mg/dL; Protein/Creatinine Ratio,Urine 0.019
[2020-08-20 23:41] LABS: Albumin 4.2 g/dL (3.80-4.90); Albumin/Globulin Ratio 2.47 (1.60-3.17); Anion Gap 10.1 mmol/L (4.00-12.00); BUN/Creat Ratio 15.56 Ratio (12.00-20.00); Calcium 8.8 mg/dL (8.7-10.3); Carbon Dioxide 22.9 mmol/L (21.6-31.8); Globulin 1.7 g/dL (1.6-3.3); Non-African American GFR(CKD) 122.5 (60.0-200.0); Potassium 3.7 mmol/L (3.5-5.5); Total Bilirubin 0.8 mg/dL (0.3-1.2); Total Protein 5.9 g/dL (6.2-8.2)
== END | disposition home or self-care (01) ==
LOC: LABWHC1 11:26
PROVIDERS: ATTEND Internal Medicine
DX: N05.0 Unspecified nephritic syndrome with minor glomerular abnormality (principal); N39.0 Urinary tract infection, site not specified
CPT/HCPCS: 36415; 80053; 81003; 82570; 83735; 84156

== ENCOUNTER → 2020-09-03 | Outpatient (CLI) | payer BC, OTHER ==
[2020-09-03 14:26] LABS: Appearance,Urine Clear (Clear); Bilirubin,Urine Negative (Negative); Blood,Urine Negative (Negative); Color,Urine Yellow; Glucose,Urine (UA) Negative (Negative); Ketones,Urine Negative (Negative); Leukocyte Esterase,Urine Negative (Negative); Nitrite,Urine Negative (Negative); Protein,Urine Negative (Negative)
[2020-09-03 15:10] LABS: Creatinine,Urine Random 274.3 mg/dL; Protein/Creatinine Ratio,Urine 0.033
[2020-09-03 20:01] LABS: HCT 46.8 % (39.6-50.0); MCH 28.2 pg (27.0-32.0); MCHC 32.1 g/dL (32.0-37.0); MCV 88.1 fL (80.0-97.0); Mean Platelet Volume 10.6 fL (9.5-12.2); Platelet Count 301 X 10*3/uL (140-440); RBC 5.31 X 10*6/uL (4.40-5.60); RDW 13.5 % (11.5-14.5); WBC 11.57 X 10*3/uL (4.50-10.00)
[2020-09-04 02:10] LABS: % Iron Saturation 46.91 (15.00-50.00); Albumin 4.3 g/dL (3.80-4.90); Albumin/Globulin Ratio 2.26 (1.60-3.17); Anion Gap 11.6 mmol/L (4.00-12.00); BUN/Creat Ratio 15.56 Ratio (12.00-20.00); Calcium 9.1 mg/dL (8.7-10.3); Carbon Dioxide 22.4 mmol/L (21.6-31.8); Globulin 1.9 g/dL (1.6-3.3); Magnesium 1.9 mg/dL (1.5-2.4); Non-African American GFR(CKD) 122.5 (60.0-200.0); Phosphorus 3.6 mg/dL (2.4-5.1); Potassium 3.3 mmol/L (3.5-5.5); Total Bilirubin 0.6 mg/dL (0.3-1.2); Total Protein 6.2 g/dL (6.2-8.2); Uric Acid 5.6 mg/dL (3.7-8.7)
[2020-09-04 02:18] LABS: Ferritin 58.1 ng/mL (22.0-322.0)
[2020-09-04 18:12] LABS: Total Protein 24 Hour,Urine 103.6 mg/24Hr; Total Volume 24 Hour,Urine 700 mL
== END | disposition home or self-care (01) ==
LOC: LABWHC1 13:13
PROVIDERS: ATTEND Internal Medicine
DX: N05.0 Unspecified nephritic syndrome with minor glomerular abnormality (principal); D64.9 Anemia, unspecified; N39.0 Urinary tract infection, site not specified; N25.81 Secondary hyperparathyroidism of renal origin; E55.9 Vitamin D deficiency, unspecified; M10.9 Gout, unspecified
CPT/HCPCS: 36415; 80053; 81003; 81050; 82306; 82570; 82728; 83540; 83550; 83735; 83970; 84100; 84156; 84550; 85027

== ENCOUNTER → 2020-11-20 | Outpatient (CLI) | payer BC, OTHER ==
[2020-11-20 14:52] LABS: Appearance,Urine Clear (Clear); Bilirubin,Urine Negative (Negative); Blood,Urine Negative (Negative); Color,Urine Yellow; Glucose,Urine (UA) Negative (Negative); Ketones,Urine Negative (Negative); Leukocyte Esterase,Urine Negative (Negative); Nitrite,Urine Negative (Negative); PH, Urine 5.5 (5.0-8.0); Protein,Urine Trace (Negative); Specific Gravity,Urine 1.031 (1.001-1.035); Urobilinogen,Urine <2.0 mg/dL (<2.0)
[2020-11-20 15:18] LABS: Creatinine,Urine Random 345.5 mg/dL
[2020-11-20 18:42] LABS: Basophils # (A) 0.03 X 10*3/uL (0.00-0.10); Basophils % (A) 0.4 %; Eosinophils # (A) 0.16 X 10*3/uL (0.04-0.35); HCT 46.5 % (39.6-50.0); HGB 15.4 g/dL (13.0-17.0); Lymphocytes # (A) 2.45 X 10*3/uL (0.90-5.00); Lymphocytes % (A) 29.9 %; MCH 28.8 pg (27.0-32.0); MCHC 33.1 g/dL (32.0-37.0); MCV 86.9 fL (80.0-97.0); Mean Platelet Volume 10.4 fL (9.5-12.2); Monocytes # (A) 0.71 X 10*3/uL (0.20-1.00); Monocytes % (A) 8.7 %; Neutrophils % (A) 58.5 %; Platelet Count 271 X 10*3/uL (140-440); RBC 5.35 X 10*6/uL (4.40-5.60); RDW 12.8 % (11.5-14.5); WBC 8.19 X 10*3/uL (4.50-10.00)
[2020-11-21 21:09] LABS: Albumin 4.5 g/dL (3.8-4.9); Albumin/Globulin Ratio 2.3 (1.60-3.17); Anion Gap 19.3 mmol/L (4.00-12.00); BUN/Creat Ratio 15.04 Ratio (12.00-20.00); Blood Urea Nitrogen 13.7 mg/dL (9.0-27.0); Calcium 9.5 mg/dL (8.7-10.3); Carbon Dioxide 17.7 mmol/L (21.6-31.8); Non-African American GFR(CKD) 119.9 (60.0-200.0); Potassium 3.9 mmol/L (3.5-5.5); Total Bilirubin 0.6 mg/dL (0.30-1.20); Total Protein 6.4 g/dL (6.2-8.2)
== END | disposition home or self-care (01) ==
LOC: LABWHC1 13:24
PROVIDERS: ATTEND Nurse Practitioner Family
DX: N18.1 Chronic kidney disease, stage 1 (principal); D64.9 Anemia, unspecified; N39.0 Urinary tract infection, site not specified; E55.9 Vitamin D deficiency, unspecified
CPT/HCPCS: 36415; 80053; 81003; 82306; 82570; 83735; 84156; 85025

== ENCOUNTER → 2020-12-05 | Outpatient (CLI) | payer BC, OTHER | END | disposition home or self-care (01) | LOC: LABWHC1 12:37 | PROVIDERS: ATTEND Internal Medicine | DX: N18.1 Chronic kidney disease, stage 1 (principal) | CPT/HCPCS: 36415; 80158 ==

== ENCOUNTER → 2020-12-09 | Outpatient (CLI) | payer BC, OTHER | END | disposition home or self-care (01) | LOC: LABWHC1 11:16 | PROVIDERS: ATTEND Internal Medicine | DX: N18.1 Chronic kidney disease, stage 1 (principal) | CPT/HCPCS: 36415; 80158 ==

== ENCOUNTER → 2021-03-27 | Outpatient (CLI) | payer BC, OTHER | END | disposition home or self-care (01) | LOC: LABWHC1 12:25 | PROVIDERS: ATTEND Nurse Practitioner Family | DX: N05.0 Unspecified nephritic syndrome with minor glomerular abnormality (principal) | CPT/HCPCS: 36415; 80158 ==

== ENCOUNTER 2021-06-17 15:07 | Inpatient (IN) | payer BC, OTHER ==
--- NOTE | 2021-06-17 16:25 | ED ---
General Adult HPI - General Chief complaint: Nausea/Vomiting/Diarrhea Stated complaint: nausea Time Seen by Provider: 06/17/21 16:15 Source: patient, EMS Mode of arrival: EMS Limitations: no limitations - History of Present Illness Initial comments: 20-year-old male, alert and oriented 4, presents to the emergency room with complaints of feeling queasy with nausea for 2 days. States today vomited once clear in color. He denies abdominal pain. Denies any dysuria. Patient states that he felt weak and dehydrated so he went to urgent care today. States they did a urine test and found protein and blood in his urine and referred him to the emergency room. Patient does have a history of nephrotic syndrome. Does not remember the names of medications that he is taking. -: days(s) (2) Location: abdomen Severity scale (1-10): 0 Consistency: now resolved Improves with: medication (zofran) Associated Symptoms: nausea/vomiting Treatments Prior to Arrival: other (iv fluids and zofran by ems, UA at urgent care) - Related Data Home Medications Medication Instructions Recorded Confirmed No Known Home Medications 06/17/21 06/17/21 Allergies Allergy/AdvReac Type Severity Reaction Status Date / Time Penicillins Allergy Family Verified 06/17/21 17:19 History Review of Systems ROS Statement: Those systems with pertinent positive or pertinent negative responses have been documented in the HPI. ROS Other: All systems not noted in ROS Statement are negative. Past Medical History Past Medical History: Asthma, Renal Disease Additional Past Medical History / Comment(s): nephrotic syndrome, asthma as a child History of Any Multi-Drug Resistant Organisms: None Reported Past Surgical History: No Surgical Hx Reported Additional Past Surgical History / Comment(s): L renal parenchymal biopsy Past Anesthesia/Blood Transfusion Reactions: Unable to Obtain Additional Past Anesthesia/Blood Transfusion Reaction / Comment(s): Pt has never had surgery Past Psychological History: No Psychological Hx Reported Smoking Status: Never smoker Past Alcohol Use History: None Reported Past Drug Use History: None Reported - Past Family History Mother Additional Family Medical History / Comment(s): Mother has motion sickness. Pt cannot recall any other hx. Father History Unknown: Yes General Exam Limitations: no limitations General appearance: alert, in no apparent distress Head exam: Present: atraumatic Eye exam: Present: normal appearance. Absent: scleral icterus, conjunctival injection, periorbital swelling, periorbital tenderness ENT exam: Present: normal exam, normal oropharynx, mucous membranes moist Neck exam: Present: normal inspection, full ROM. Absent: tenderness, meningismus Respiratory exam: Present: normal lung sounds bilaterally. Absent: respiratory distress, accessory muscle use Cardiovascular Exam: Present: regular rate, normal rhythm GI/Abdominal exam: Present: soft. Absent: distended, tenderness, guarding, rebound, rigid Extremities exam: Present: normal inspection, full ROM, normal capillary refill, pedal edema (trace). Absent: tenderness Back exam: Present: normal inspection, full ROM. Absent: tenderness, CVA tenderness (R), CVA tenderness (L), rash noted Neurological exam: Present: alert, oriented X3 Psychiatric exam: Present: normal affect, normal mood Skin exam: Present: warm, dry, intact. Absent: cyanosis, diaphoretic, petechiae, pallor Course Vital Signs 06/17/21 06/17/21 06/17/21 15:09 19:32 21:40 Temperature 97.8 F Pulse Rate 91 94 92 Respiratory 16 16 14 Rate Blood Pressure 115/89 123/91 121/83 O2 Sat by Pulse 97 98 100 Oximetry Medical Decision Making - Medical Decision Making 20-year-old male presents with nausea and feeling dehydrated of the past 2 days. States he does have a history of nephrotic syndrome. He does not know the names of the medications that he is taking. Influenza and coronavirus swabs are negative. UA shows 4+ protein with a high specific gravity. His creatinine is elevated at 1.36, sodium of 129, albumin is 1.8. Patient's nausea has resolved with Zofran and IV fluids. It is not clear if the patient is compliant with his medication regimen. I did discuss this case with nephrology Dr. Rueda who recommended admission for nephrotic syndrome. Upon reassessment the patient has developed slight swelling to his upper eyelids and edema to bilateral lower extremities. Patient is agreeable to this plan of care. - Lab Data Result diagrams: 06/17/21 19:36 06/17/21 19:15 Lab Results 06/17/21 06/17/21 06/17/21 Range/Units 16:34 16:34 18:20 WBC (3.8-10.6) k/uL RBC (4.30-5.90) m/uL Hgb (13.0-17.5) gm/dL Hct (39.0-53.0) % MCV (80.0-100.0) fL MCH (25.0-35.0) pg MCHC (31.0-37.0) g/dL RDW (11.5-15.5) % Plt Count (150-450) k/uL MPV Neutrophils % % Lymphocytes % % Monocytes % % Eosinophils % % Basophils % % Neutrophils # (1.3-7.7) k/uL Lymphocytes # (1.0-4.8) k/uL Monocytes # (0-1.0) k/uL Eosinophils # (0-0.7) k/uL Basophils # (0-0.2) k/uL Sodium (137-145) mmol/L Potassium (3.5-5.1) mmol/L Chloride (98-107) mmol/L Carbon Dioxide (22-30) mmol/L Anion Gap mmol/L BUN (9-20) mg/dL Creatinine (0.66-1.25) mg/dL Est GFR (CKD-EPI)AfAm (>60 ml/min/1.73 sqM) Est GFR (CKD-EPI)NonAf (>60 ml/min/1.73 sqM) Glucose (74-99) mg/dL Calcium (8.4-10.2) mg/dL Total Bilirubin (0.2-1.3) mg/dL AST (17-59) U/L ALT (4-49) U/L Alkaline Phosphatase (38-126) U/L Total Protein (6.3-8.2) g/dL Albumin (3.5-5.0) g/dL Urine Color Yellow Urine Appearance Cloudy (Clear) Urine pH 7.0 (5.0-8.0) Ur Specific [place] >1.050 H (1.001-1.035) Urine Protein 4+ H (Negative) Urine Glucose (UA) Negative (Negative) Urine Ketones Trace H (Negative) Urine Blood Moderate H (Negative) Urine Nitrite Negative (Negative) Urine Bilirubin Negative (Negative) Urine Urobilinogen 2.0 (<2.0) mg/dL Ur Leukocyte Esterase Negative (Negative) Urine RBC 3 (0-5) /hpf Urine WBC 31 H (0-5) /hpf Coronavirus (PCR) Not Detected (Not Detectd) Influenza Type A RNA Not Detected (Not Detectd) Influenza Type B (PCR) Not Detected (Not Detectd) 06/17/21 06/17/21 Range/Units 19:15 19:36 WBC 14.4 H (3.8-10.6) k/uL RBC 6.36 H (4.30-5.90) m/uL Hgb 18.2 H (13.0-17.5) gm/dL Hct 55.0 H (39.0-53.0) % MCV 86.6 (80.0-100.0) fL MCH 28.7 (25.0-35.0) pg MCHC 33.1 (31.0-37.0) g/dL RDW 13.1 (11.5-15.5) % Plt Count 432 (150-450) k/uL MPV 7.6 Neutrophils % 90 % Lymphocytes % 6 % Monocytes % 3 % Eosinophils % 1 % Basophils % 0 % Neutrophils # 12.9 H (1.3-7.7) k/uL Lymphocytes # 0.8 L (1.0-4.8) k/uL Monocytes # 0.4 (0-1.0) k/uL Eosinophils # 0.1 (0-0.7) k/uL Basophils # 0.0 (0-0.2) k/uL Sodium 129 L (137-145) mmol/L Potassium 4.3 (3.5-5.1) mmol/L Chloride 104 (98-107) mmol/L Carbon Dioxide 24 (22-30) mmol/L Anion Gap 1 mmol/L BUN 15 (9-20) mg/dL Creatinine 1.36 H (0.66-1.25) mg/dL Est GFR (CKD-EPI)AfAm 85 (>60 ml/min/1.73 sqM) Est GFR (CKD-EPI)NonAf 74 (>60 ml/min/1.73 sqM) Glucose 113 H (74-99) mg/dL Calcium 7.2 L (8.4-10.2) mg/dL Total Bilirubin 0.5 (0.2-1.3) mg/dL AST 42 (17-59) U/L ALT 11 (4-49) U/L Alkaline Phosphatase 129 H (38-126) U/L Total Protein 4.8 L (6.3-8.2) g/dL Albumin 1.8 L (3.5-5.0) g/dL Urine Color Urine Appearance (Clear) Urine pH (5.0-8.0) Ur Specific [place] (1.001-1.035) Urine Protein (Negative) Urine Glucose (UA) (Negative) Urine Ketones (Negative) Urine Blood (Negative) Urine Nitrite (Negative) Urine Bilirubin (Negative) Urine Urobilinogen (<2.0) mg/dL Ur Leukocyte Esterase (Negative) Urine RBC (0-5) /hpf Urine WBC (0-5) /hpf Coronavirus (PCR) (Not Detectd) Influenza Type A RNA (Not Detectd) Influenza Type B (PCR) (Not Detectd) Disposition Clinical Impression: Nephrotic syndrome Disposition: ADMITTED IP TO THIS [facility] Decision Date: 06/17/21 Decision Time: 20:14
[2021-06-17] MEDS ORDERED: SODIUM CHLORIDE 0.9% 500 ML 500 ML IV ONE (18:27)
[2021-06-17] MEDS ORDERED: ONDANSETRON 4 MG/2 ML VIAL IVP STA (18:27)
[2021-06-17 18:39] LABS: Appearance,Urine Cloudy (Clear); Bilirubin,Urine Negative (Negative); Blood,Urine Moderate (Negative); Color,Urine Yellow; Glucose,Urine (UA) Negative (Negative); Ketones,Urine Trace (Negative); Leukocyte Esterase,Urine Negative (Negative); Nitrite,Urine Negative (Negative); Protein,Urine 4+ (Negative); RBC,Urine 3 /hpf (0-5); WBC,Urine 31 /hpf (0-5)
[2021-06-17 18:57] LABS: Specific Gravity,Urine >1.050 (1.001-1.035)
[2021-06-17 19:42] LABS: Albumin 1.8 g/dL (3.5-5.0); Calcium 7.2 mg/dL (8.4-10.2); Potassium 4.3 mmol/L (3.5-5.1); Total Bilirubin 0.5 mg/dL (0.2-1.3); Total Protein 4.8 g/dL (6.3-8.2)
[2021-06-17 19:57] LABS: Basophils % (A) 0 %; Eosinophils # (A) 0.1 k/uL (0-0.7); Eosinophils % (A) 1 %; HGB 18.2 gm/dL (13.0-17.5); Lymphocytes # (A) 0.8 k/uL (1.0-4.8); Lymphocytes % (A) 6 %; MCH 28.7 pg (25.0-35.0); MCHC 33.1 g/dL (31.0-37.0); MCV 86.6 fL (80.0-100.0); Mean Platelet Volume 7.6; Monocytes # (A) 0.4 k/uL (0-1.0); Monocytes % (A) 3 %; Neutrophils # (A) 12.9 k/uL (1.3-7.7); Neutrophils % (A) 90 %; Platelet Count 432 k/uL (150-450); RBC 6.36 m/uL (4.30-5.90); RDW 13.1 % (11.5-15.5); WBC 14.4 k/uL (3.8-10.6)
[2021-06-17] MEDS ORDERED: SODIUM CHLORIDE 0.9% 1,000 ML IV STA (20:16)
[2021-06-17] MEDS ORDERED: NALOXONE 0.4 MG/ML 1 ML VIAL IV PRN (20:30)
[2021-06-17] MEDS ORDERED: ACETAMINOPHEN TAB 325 MG TAB PO PRN (20:30)
[2021-06-17] MEDS ORDERED: ONDANSETRON 4 MG/2 ML VIAL IVP PRN (20:30)
[2021-06-17] MEDS: cycloSPORINE 100 MG CAP PO SCH (21:48)
[2021-06-17] MEDS: predniSONE 10 MG TAB PO SCH (21:48)
[2021-06-17] MEDS ORDERED: methylPREDNISolone SOD SUCCI 40 MG/ML 1 ML VIAL IV STA (22:31)
--- NOTE | 2021-06-18 01:23 | P.HPIM ---
History of Present Illness H&P Date: 06/17/21 The patient is a 20-year-old male with a PMH of nephritic syndrome (follows with Dr. Rueda) on prednisone chronically, and mild intermittent asthma who presents to the emergency room with complaints of nausea and vomiting. The patient reports that he had not been feeling well over the past 2-3 days, and felt fatigued and dehydrated. The patient went to an urgent care center earlier today where a UA revealed protein, ketones, and blood, and the patient was subsequently referred to the emergency room. He reports ongoing nausea, slightly improved from his presentation. Reports that over the past 2-3 days, he has been urinating significantly less than usual, and that his urine is darker, almost brown in color. He also states that he had missed several doses of his prednisone. He denies experiencing abdominal pain, diarrhea, dysuria. Also denied chest discomfort, fever, chills, cough. Laboratory evaluation in the emergency room revealed creatinine 1.36 (baseline 0.9), WBC count 14.4, sodium 129, albumin 1.8. UA revealed ketones, moderate blood, and 4+ protein. Review of systems: Pertinent positives and negatives as discussed in HPI, a complete review of systems was performed and all other systems are negative. Physical examination: General: non toxic, no distress, appears at stated age, normal weight Derm: no unusual rashes/lesions no unusual ecchymoses, warm, dry Head: atraumatic, normocephalic, symmetric Eyes: EOMI, no lid lag, anicteric sclera, pupils equal round reactive to light ENT: Nose and ears atraumatic, no thrush, no pharyngeal erythema Neck: No thyromegaly, no cervical lymphadenopathy, trachea midline, supple Mouth: no lip lesion, mucus membranes moist Cardiovascular: S1S2 reg, no murmur, positive posterior tibial pulse bilateral, no edema, capillary refill less than 2 seconds Lungs: CTA bilateral, no rhonchi, no rales , no accessory muscle use Abdominal: soft, nontender to palpation, no guarding, no appreciable organomegaly, normal bowel sounds Ext: no gross muscle atrophy, muscle strength 5 out of 5 in all 4 extremities grossly, no contractures, Neuro: CN II-XI grossly intact, light touch intact all 4 extremities, finger to nose within normal limits, Psych: Alert, oriented, appropriate affect Assessment/plan Nephritic syndrome with hypoalbuminemia -Dr. Rueda discussed the case with the emergency room providers and Solu- Medrol, cyclosporine, and prednisone were ordered -Obtain 24-hour urine creatinine and protein. -Follow up urine cultures -Gentle IV hydration -Nephrology consulted DVT prophylaxis -Heparin subcu The patient is admitted with an anticipated greater than 2 midnight stay for evaluation of nephritic syndrome CODE STATUS: Full Code Discussed with: Patient Anticipated discharge date: 06/[address]: Home Past Medical History Past Medical History: Asthma, Renal Disease Additional Past Medical History / Comment(s): nephrotic syndrome, asthma as a child History of Any Multi-Drug Resistant Organisms: None Reported Past Surgical History: No Surgical Hx Reported Additional Past Surgical History / Comment(s): L renal parenchymal biopsy Past Anesthesia/Blood Transfusion Reactions: Unable to Obtain Additional Past Anesthesia/Blood Transfusion Reaction / Comment(s): Pt has never had surgery Past Psychological History: No Psychological Hx Reported Smoking Status: Never smoker Past Alcohol Use History: None Reported Past Drug Use History: None Reported - Past Family History Mother Additional Family Medical History / Comment(s): Mother has motion sickness. Pt cannot recall any other hx. Father History Unknown: Yes Medications and Allergies Home Medications Medication Instructions Recorded Confirmed Type No Known Home Medications 06/17/21 06/17/21 History Allergies Allergy/AdvReac Type Severity Reaction Status Date / Time Penicillins Allergy Family Verified 06/17/21 17:19 History Physical Exam Vitals: Vital Signs Temp Pulse Pulse Resp BP BP Pulse Ox 06/17/21 23:04 97.8 F 97 16 149/77 96 06/17/21 21:40 92 14 121/83 100 06/17/21 19:32 94 16 123/91 98 06/17/21 15:09 97.8 F 91 16 115/89 97 Intake and Output 06/17/21 06/17/21 06/18/21 14:59 22:59 06:59 Other: Weight 86.183 kg 86.183 kg Results CBC & Chem 7: 06/17/21 19:36 06/17/21 19:15 Labs: Abnormal Lab Results - Last 24 Hours (Table) 06/17/21 06/17/21 06/17/21 Range/Units 18:20 19:15 19:36 WBC 14.4 H (3.8-10.6) k/uL RBC 6.36 H (4.30-5.90) m/uL Hgb 18.2 H (13.0-17.5) gm/dL Hct 55.0 H (39.0-53.0) % Neutrophils # 12.9 H (1.3-7.7) k/uL Lymphocytes # 0.8 L (1.0-4.8) k/uL Sodium 129 L (137-145) mmol/L Creatinine 1.36 H (0.66-1.25) mg/dL Glucose 113 H (74-99) mg/dL Calcium 7.2 L (8.4-10.2) mg/dL Alkaline Phosphatase 129 H (38-126) U/L Total Protein 4.8 L (6.3-8.2) g/dL Albumin 1.8 L (3.5-5.0) g/dL Ur Specific [place] >1.050 H (1.001-1.035) Urine Protein 4+ H (Negative) Urine Ketones Trace H (Negative) Urine Blood Moderate H (Negative) Urine WBC 31 H (0-5) /hpf Microbiology - Last 24 Hours (Table) 06/17/21 18:20 Urine Culture - Preliminary Urine,Voided Thrombosis Risk Factor Assmnt - Choose All That Apply Any of the Below Risk Factors Present?: No Other Risk Factors: No Other congenital or acquired thrombophilia - If yes, enter type in comment: No Thrombosis Risk Factor Assessment Level: Very Low Risk
[2021-06-18] MEDS: cycloSPORINE 100 MG CAP PO SCH ×2 (08:38→21:01)
[2021-06-18] MEDS: HEPARIN SODIUM,PORCINE/PF 5,000 UNIT/0.5 ML SYRINGE SQ SCH ×3 (08:38→22:57)
[2021-06-18] MEDS: predniSONE 10 MG TAB PO SCH (08:38)
--- NOTE | 2021-06-18 09:22 | P.PN ---
Subjective Progress Note Date: 06/18/21 Hospital course: The patient is a 20-year-old male with a PMH of nephritic syndrome (follows with Dr. Rueda) on prednisone chronically, and mild intermittent asthma who presents to the emergency room with complaints of nausea and vomiting. The patient reports that he had not been feeling well over the past 2-3 days, and felt fatigued and dehydrated. The patient went to an urgent care center earlier today where a UA revealed protein, ketones, and blood, and the patient was subs equently referred to the emergency room. He reports ongoing nausea, slightly improved from his presentation. Reports that over the past 2-3 days, he has been urinating significantly less than usual, and that his urine is darker, almost brown in color. He also states that he had missed several doses of his prednisone. He denies experiencing abdominal pain, diarrhea, dysuria. Also denied chest discomfort, fever, chills, cough. Laboratory evaluation in the emergency room revealed creatinine 1.36 (baseline 0.9), WBC count 14.4, sodium 129, albumin 1.8. UA revealed ketones, moderate blood, and 4+ protein. Physical examination: Patient seen and fully evaluated at the bedside this morning. Patient reports he still feels extremely fatigued and nauseous. Patient states he is still unable to hold down any pills or oral intake. Repeat morning labs reveal worsening hyponatremia with sodium of 128 and acute kidney injury with BUN of 27, creatinine 1.71, and GFR 56. Worsening hypoalbuminemia with albumin of 1.7. Patient did receive initial dose of Solu-Medrol and to continue with cyc losporine and prednisone at this time. Patient completing 24-hour urine creatinine and protein at this time and receiving continuous IV fluid hydration with 0.9% normal saline. General: non toxic, no distress, appears at stated age Derm: warm, dry Head: atraumatic, normocephalic, symmetric Eyes: EOMI, no lid lag, anicteric sclera Mouth: no lip lesion, mucus membranes moist Cardiovascular: S1S2 reg, no murmur, positive posterior tibial pulse bilateral, Lungs: CTA bilateral, no rhonchi, no rales , no accessory muscle use Abdominal: soft, nontender to palpation, no guarding, no appreciable org anomegaly Ext: no gross muscle atrophy, no edema, no contractures Neuro: CN II-XI grossly intact, no focal neuro deficits Psych: Alert, oriented, appropriate affect Assessment and plan of care: Nephritic syndrome with hypoalbuminemia Hyponatremia Acute kidney injury Leukocytosis -Patient received dose of Solu-Medrol and to continue with cyclosporine and prednisone. -Obtain 24-hour urine creatinine and protein. -Follow up urine cultures -Continue IV fluid hydration -Nephrology consulted, appreciate further recommendations -Clear liquid diet pending further recommendations from nephrology. -Symptomatically and pain management, anti-emetics as needed CODE STATUS: Full Code DVT prophylaxis: Heparin Discussed with: Patient and RN Anticipated discharge date: Clinical course to determine Anticipated discharge place: Home I reviewed the documentation as provided by the MARY above, who is the original author of this note. I agree with the documented assessment and plan, with the following changes: none Objective - Vital Signs Vital signs: Vital Signs Temp 98.1 F 06/18/21 07:39 Pulse 90 06/18/21 07:39 Resp 18 06/18/21 07:39 BP 119/78 06/18/21 07:39 Pulse Ox 100 06/18/21 07:39 Intake & Output 06/17/21 06/18/21 06/18/21 18:59 06:59 18:59 Weight 86.183 kg 86.183 kg - Labs CBC & Chem 7: 06/17/21 19:36 06/18/21 11:39 Labs: Abnormal Lab Results - Last 24 Hours (Table) 06/17/21 06/17/21 06/17/21 Range/Units 18:20 19:15 19:36 WBC 14.4 H (3.8-10.6) k/uL RBC 6.36 H (4.30-5.90) m/uL Hgb 18.2 H (13.0-17.5) gm/dL Hct 55.0 H (39.0-53.0) % Neutrophils # 12.9 H (1.3-7.7) k/uL Lymphocytes # 0.8 L (1.0-4.8) k/uL Sodium 129 L (137-145) mmol/L Creatinine 1.36 H (0.66-1.25) mg/dL Glucose 113 H (74-99) mg/dL Calcium 7.2 L (8.4-10.2) mg/dL Alkaline Phosphatase 129 H (38-126) U/L Total Protein 4.8 L (6.3-8.2) g/dL Albumin 1.8 L (3.5-5.0) g/dL Ur Specific [place] >1.050 H (1.001-1.035) Urine Protein 4+ H (Negative) Urine Ketones Trace H (Negative) Urine Blood Moderate H (Negative) Urine WBC 31 H (0-5) /hpf Microbiology - Last 24 Hours (Table) 06/17/21 18:20 Urine Culture - Preliminary Urine,Voided
[2021-06-18] MEDS: ONDANSETRON 4 MG/2 ML VIAL IVP PRN ×2 (09:49→21:01)
[2021-06-18 12:21] LABS: Albumin 1.7 g/dL (3.5-5.0); Calcium 7.1 mg/dL (8.4-10.2); Potassium 4.5 mmol/L (3.5-5.1); Total Bilirubin 0.5 mg/dL (0.2-1.3); Total Protein 4.6 g/dL (6.3-8.2)
--- NOTE | 2021-06-18 13:33 | P.NPCON ---
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 Patient is maintained on prednisone and cyclosporine. Patient is admitted to the hospital with complaints of nausea and vomiting. He had also noticed increased swelling in his legs recently. Patient also reports that he had not been taking his prednisone regularly recently and had accidentally decreased it to 5 mg instead of 10 mg. Last follow-up in the office was about a year ago. Baseline creatinine about 0.9-1 mg/dL. Last 24 hour urine for protein was 103.6 mg on 09/03/2020. Currently patient is not able to eat. He is also complaining of upper abdominal pain. Serum creatinine was 1.3 on admission and increased to 1.7 today. Sodium was also low at 129 and then decrease further to 128. Patient didn't receive IV fluid bolus yesterday. Currently not on any IV fluids. Blood pressure has been stable Patient is afebrile UA shows 4+ protein WBCs 31. Review of Systems As per HPI, other systems negative Past Medical History Past Medical History: Asthma, Renal Disease Additional Past Medical History / Comment(s): nephrotic syndrome, asthma as a child History of Any Multi-Drug Resistant Organisms: None Reported Past Surgical History: No Surgical Hx Reported Additional Past Surgical History / Comment(s): L renal parenchymal biopsy Past Anesthesia/Blood Transfusion Reactions: Unable to Obtain Additional Past Anesthesia/Blood Transfusion Reaction / Comment(s): Pt has never had surgery Past Psychological History: No Psychological Hx Reported Smoking Status: Never smoker Past Alcohol Use History: None Reported Past Drug Use History: None Reported - Past Family History Mother Additional Family Medical History / Comment(s): Mother has motion sickness. Pt cannot recall any other hx. Father History Unknown: Yes Medications and Allergies Home Medications Medication Instructions Recorded Confirmed Type No Known Home Medications 06/17/21 06/17/21 History Allergies Allergy/AdvReac Type Severity Reaction Status Date / Time Penicillins Allergy Family Verified 06/17/21 17:19 History Physical Exam Vitals: Vital Signs Temp Pulse Pulse Resp BP BP Pulse Ox 06/18/21 07:45 90 18 06/18/21 07:39 98.1 F 90 18 119/78 100 06/18/21 00:58 98.6 F 83 18 132/78 98 06/17/21 23:04 97.8 F 97 16 149/77 96 06/17/21 21:40 92 14 121/83 100 06/17/21 19:32 94 16 123/91 98 06/17/21 15:09 97.8 F 91 16 115/89 97 Intake and Output 06/17/21 06/18/21 06/18/21 22:59 06:59 14:59 Other: Weight 86.183 kg 86.183 kg Patient is awake, comfortable he is complaining of abdominal discomfort. Examination of the heart S1 and S2 Examination of the lungs bilateral breath sounds are heard Abdomen is soft, mild tenderness in the upper abdomen Examination of the lower extremities shows trace ankle edema [employer] SPECIALIST exam is grossly intact. Results - Lab Results Most recent lab results Calcium 7.1 mg/dL (8.4-10.2) L 06/18/21 11:39 06/17/21 19:36 06/18/21 11:39 Assessment and Plan Assessment: 1. Nephrotic syndrome with minimal change disease status post kidney biopsy in 2019. Patient had been in remission with last 24 hour urine protein of 103 mg in August 2020. Patient currently has a relapse with significant proteinuria. Etiology is likely noncompliance with medications. Baseline creatinine around 0.9-1 mg/dL 2. Acute kidney injury mostly prerenal. 3. Nausea and vomiting possibly related to gastritis 4. Hyponatremia, possibly hypovolemic. Check urine osmolality and urine sodium level and resume normal saline with repeat sodium in 4-5 hours. Plan: Check protein creatinine ratio Restart normal saline Repeat sodium in 4-5 hours Add protonix Increase prednisone Check cyclosporine level Repeat labs in a.m. Avoid any nephrotoxic agents. Maintain salt and fluid restriction Follow-up on urine cultures Thank you for this consultation. We'll continue to follow the patient with you during his hospitalization
[2021-06-18] MEDS ORDERED: predniSONE 20 MG TAB PO STA (13:36)
[2021-06-18] MEDS ORDERED: SODIUM CHLORIDE 0.9% 1,000 ML IV SCH (13:45)
[2021-06-18] MEDS: PANTOPRAZOLE 40 MG/10 ML VIAL IVP SCH (17:02)
[2021-06-18] MEDS: SODIUM CHLORIDE 0.9% 1,000 ML IV SCH (20:55)
[2021-06-19] MEDS: SODIUM CHLORIDE 0.9% 1,000 ML IV SCH (06:06)
[2021-06-19] MEDS: HEPARIN SODIUM,PORCINE/PF 5,000 UNIT/0.5 ML SYRINGE SQ SCH ×2 (08:45→16:28)
[2021-06-19] MEDS: predniSONE 10 MG TAB PO SCH (08:45)
[2021-06-19] MEDS: cycloSPORINE 100 MG CAP PO SCH ×2 (08:46→22:25)
[2021-06-19] MEDS: PANTOPRAZOLE 40 MG/10 ML VIAL IVP SCH ×2 (08:46→08:59)
[2021-06-19] MEDS ORDERED: FUROSEMIDE 10 MG/ML 2 ML VIAL IV ONE (08:54)
[2021-06-19 09:51] LABS: African American GFR (CKD) 53 (>60 ml/min/1.73 sqM); Anion Gap 2 mmol/L; Blood Urea Nitrogen 45 mg/dL (9-20); Carbon Dioxide 24 mmol/L (22-30); Chloride 101 mmol/L (98-107); Glucose 98 mg/dL (74-99); Non-African American GFR(CKD) 46 (>60 ml/min/1.73 sqM); Potassium 4.6 mmol/L (3.5-5.1); Sodium 127 mmol/L (137-145)
[2021-06-19] MEDS: ONDANSETRON 4 MG/2 ML VIAL IVP PRN (09:56)
--- NOTE | 2021-06-19 11:02 | P.PN ---
Subjective Patient is seen for follow-up for acute kidney injury and underlying minimal- change disease and nephrotic syndrome. Patient is currently in relapse. He has ongoing nausea and vomiting. Patient was started on Protonix yesterday. Prednisone has been increased to 30 mg daily. Sodium has been low patient was given a normal saline challenge yesterday and his sodium dropped further. This is now discontinued. This morning patient is complaining of increased swelling in his upper extremities. He denies any significant shortness of breath. 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2) g/dL Albumin (3.5-5.0) g/dL Cyclosporine (100-400) ng/mL Microbiology - Last 24 Hours (Table) 06/17/21 18:20 Urine Culture - Final Urine,Voided Assessment and Plan Assessment: 1. Nephrotic syndrome with minimal change disease status post kidney biopsy in 2019. Patient had been in remission with last 24 hour urine protein of 103 mg in August 2020. Patient currently has a relapse with significant proteinuria. Etiology is likely noncompliance with medications. Baseline creatinine around 0.9-1 mg/dL. Was maintained on low-dose prednisone and cyclosporine. 2. 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 No improvement with hydration. R/o retention. 3. Nausea and vomiting possibly related to gastritis 4. Hyponatremia, worsens with normal saline. Currently hypervolemic. Plan: Quantify proteinuria D/c saline IV lasix x1 Check USS kidneys Continue prednisone. Check bladder scan r/o retention. Continue protonix. Repeat labs in am.
--- NOTE | 2021-06-19 12:06 | US ---
EXAMINATION TYPE: US kidneys/renal and bladder DATE OF EXAM: 06/19/2021 COMPARISON: CT CLINICAL HISTORY: JOE. JOE. Patient has hx of left renal biopsy. EXAM MEASUREMENTS: Right Kidney: 12.8 x 6.9 x 4.8 cm Left Kidney: 11.8 x 6.6 x 6.6 cm Right Kidney: Measures upper limits versus minimally enlarged. No hydronephrosis or masses seen Left Kidney: Area that appears to be isoechoic to the spleen seen within the LUQ between the spleen a nd left kidney measuring 1.7 x 1.5 x 1.5 cm. Compatible with a splenule. Bladder: Appears anechoic. Slightly limited evaluation- bladder not fully distended. Bilateral Jets seen: Only right jet was visualized at this time. *Free fluid seen superior to the bladder. IMPRESSION: 1. No distinct abnormality appreciated with certainty.
[2021-06-19 14:11] LABS: Total Volume 24 Hour,Urine 325 mls (800-1800)
[2021-06-19 14:12] LABS: Total Volume 24 Hour,Urine 325 mls (800-1800)
[2021-06-19 14:17] LABS: Creatinine 24 Hour,Urine 1447.9 mg/24hr (1000.0-2000.0)
--- NOTE | 2021-06-19 16:36 | P.PN ---
Subjective Progress Note Date: 06/19/21 Principal diagnosis: Swelling Doing well but had worsened upper extremities swelling. No sob, no pain. No fevers. Objective - Vital Signs Vital signs: Vital Signs Temp 97.7 F 06/19/21 14:00 Pulse 78 06/19/21 14:00 Resp 18 06/19/21 14:00 BP 121/73 06/19/21 14:00 Pulse Ox 99 06/19/21 14:00 Intake & Output 06/18/21 06/19/21 06/19/21 18:59 06:59 18:59 Other: Voiding Method Urinal # Voids 2 3 - Exam Constitutional: No acute distress, conversant, pleasant Eyes:Anicteric sclerae, moist conjunctiva, no lid-lag, PERRLA, ENMT: Oropharynx clear, no erythema, exudates Neck: Supple, FROM, no masses, or JVD, No carotid bruits, No thyromegaly Lungs: Clear to auscultation, Clear to percussion, Normal respiratory effort, no accessory muscle use Cardiovascular: Heart regular in rate and rhythm, No murmurs, gallops, or rubs, diffuse anasarca Abdominal: Soft, Nontender, no guarding, rebound or rigidity, Normoactive bowel sounds, No hepatomegaly, No splenomegaly, No palpable mass Skin: Normal temperature, tone, texture, turgor, no induration, No subcutaneous nodules, No rash, lesions, No ulcers Extremities: No digital cyanosis, No clubbing, Pedal pulses intact and symmetrical, Radial pulses intact and symmetrical, No calf tenderness Psychiatric: Alert and oriented to person, place and time, appropriate affect, intact judgement Neuro: Muscles Strength 5/5 in all 4 extremities, Sensation to light touch grossly present throughout, Cranial nerves II-XII grossly intact, no focal sensory deficits - Labs CBC & Chem 7: 06/17/21 19:36 06/19/21 09:02 Labs: Abnormal Lab Results - Last 24 Hours (Table) 06/18/21 06/18/21 06/18/21 Range/Units 09:30 09:30 11:39 Sodium (137-145) mmol/L BUN (9-20) mg/dL Creatinine (0.66-1.25) mg/dL Calcium (8.4-10.2) mg/dL Ur 24 Hour Volume 325 L 325 L (800-1800) mls Cyclosporine 27 L (100-400) ng/mL 06/18/21 06/19/21 Range/Units 17:17 09:02 Sodium 126 L 127 L (137-145) mmol/L BUN 45 H (9-20) mg/dL Creatinine 2.03 H (0.66-1.25) mg/dL Calcium 7.0 L (8.4-10.2) mg/dL Ur 24 Hour Volume (800-1800) mls Cyclosporine (100-400) ng/mL Microbiology - Last 24 Hours (Table) 06/17/21 18:20 Urine Culture - Final Urine,Voided Assessment and Plan Plan: Nephritic syndrome with hypoalbuminemia Hyponatremia Acute kidney injury Leukocytosis -Patient received dose of Solu-Medrol and to continue with cyclosporine and prednisone. -Urine showing high amount of protein, lab unable to calculate. -Follow up urine cultures -Followed by nephro who discontinued IV fluids and gave one dose of lasix on 06/19 -Obtain renal U/s -Follow cr and Na in am CODE STATUS: Full Code DVT prophylaxis: Heparin Discussed with: Patient and RN Anticipated discharge date: Clinical course to determine Anticipated discharge place: Home
[2021-06-20] MEDS: HEPARIN SODIUM,PORCINE/PF 5,000 UNIT/0.5 ML SYRINGE SQ SCH ×3 (00:38→16:58)
[2021-06-20] MEDS: cycloSPORINE 100 MG CAP PO SCH ×2 (07:59→20:57)
[2021-06-20] MEDS: predniSONE 10 MG TAB PO SCH (07:59)
[2021-06-20] MEDS: PANTOPRAZOLE 40 MG/10 ML VIAL IVP SCH (07:59)
[2021-06-20 09:21] LABS: African American GFR (CKD) 57.1 (60.0-200.0); Anion Gap 7.8 mmol/L (10.00-18.00); BUN/Creat Ratio 26.63 Ratio (12.00-20.00); Blood Urea Nitrogen 50.6 mg/dL (9.0-27.0); Calcium 7.3 mg/dL (8.7-10.3); Carbon Dioxide 22.5 mmol/L (20.0-27.5); Magnesium 2.6 mg/dL (1.5-2.4); Non-African American GFR(CKD) 49.3 (60.0-200.0)
[2021-06-20] MEDS ORDERED: FUROSEMIDE 10 MG/ML 2 ML VIAL IV ONE (09:56)
--- NOTE | 2021-06-20 11:40 | P.PN ---
Subjective Patient is seen for follow-up for acute kidney injury and underlying minimal- change disease and nephrotic syndrome. Patient is currently in relapse. He has ongoing nausea and vomiting. Patient was started on Protonix this admission Prednisone has been increased to 30 mg daily. Sodium level had been low and worsened with normal saline currently improved with IV Lasix. Sodium is improved to 130 today. Serum creatinine at 1.9 mg/dL. Patient states he is voiding. 24-hour urine protein not resulted Nausea is improved. Objective - Vital Signs Vital signs: Vital Signs Temp 97.7 F 06/20/21 08:00 Pulse 61 06/20/21 08:00 Resp 18 06/20/21 08:00 BP 130/77 06/20/21 08:00 Pulse Ox 98 06/20/21 08:00 Intake & Output 06/19/21 06/20/21 06/20/21 18:59 06:59 18:59 Intake Total 300 Balance 300 Intake: IV 300 Sodium Chloride 0.9% 1, 300 000 ml @ 75 mls/hr IV . 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 Nephrotic syndrome with minimal change disease status post kidney biopsy in 2019. Patient had been in remission with last 24 hour urine protein of 103 mg in August 2020. 24 hour urine for protein currently pending Patient currently has a relapse with significant proteinuria. Etiology is likely noncompliance with medications. Baseline creatinine around 0.9-1 mg/dL. Was maintained on low-dose prednisone and cyclosporine. 2. 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 No improvement with hydration. R/o retention. 3. Nausea and vomiting possibly related to gastritis 4. Hyponatremia, worsens with normal saline. Currently hypervolemic. Improved with Lasix Plan: Repeat IV Lasix today Check random urine protein creatinine ratio Continue with prednisone
--- NOTE | 2021-06-20 12:04 | P.PN ---
Subjective Progress Note Date: 06/20/21 Principal diagnosis: Swelling He does not feel that the swelling is any better today compared to yesterday. No sob or pain. No fevers. Objective - Vital Signs Vital signs: Vital Signs Temp 97.7 F 06/20/21 08:00 Pulse 61 06/20/21 08:00 Resp 18 06/20/21 08:00 BP 130/77 06/20/21 08:00 Pulse Ox 98 06/20/21 08:00 Intake & Output 06/19/21 06/20/21 06/20/21 18:59 06:59 18:59 Intake Total 300 Balance 300 Intake: IV 300 Sodium Chloride 0.9% 1, 300 000 ml @ 75 mls/hr IV . [id number] Rx#:[id number] Other: Voiding Method Urinal Urinal Urinal # Voids 2 - Exam Constitutional: No acute distress, conversant, pleasant Eyes:Anicteric sclerae, moist conjunctiva, no lid-lag, PERRLA, ENMT: Oropharynx clear, no erythema, exudates Neck: Supple, FROM, no masses, or JVD, No carotid bruits, No thyromegaly Lungs: Clear to auscultation, Clear to percussion, Normal respiratory effort, no accessory muscle use Cardiovascular: Heart regular in rate and rhythm, No murmurs, gallops, or rubs, diffuse anasarca Abdominal: Soft, Nontender, no guarding, rebound or rigidity, Normoactive bowel sounds, No hepatomegaly, No splenomegaly, No palpable mass Skin: Normal temperature, tone, texture, turgor, no induration, No subcutaneous nodules, No rash, lesions, No ulcers Extremities: No digital cyanosis, No clubbing, Pedal pulses intact and symmetrical, Radial pulses intact and symmetrical, No calf tenderness Psychiatric: Alert and oriented to person, place and time, appropriate affect, intact judgement Neuro: Muscles Strength 5/5 in all 4 extremities, Sensation to light touch grossly present throughout, Cranial nerves II-XII grossly intact, no focal sensory deficits - Labs CBC & Chem 7: 06/17/21 19:36 06/20/21 05:37 Labs: Abnormal Lab Results - Last 24 Hours (Table) 06/18/21 06/18/21 06/20/21 Range/Units 09:30 09:30 05:37 Sodium 130 L (135-145) mmol/L Anion Gap 7.80 L (10.00-18.00) mmol/L BUN 50.6 H (9.0-27.0) mg/dL Creatinine 1.9 H (0.6-1.5) mg/dL Est GFR (CKD-EPI)AfAm 57.1 L (60.0-200.0) Est GFR (CKD-EPI)NonAf 49.3 L (60.0-200.0) BUN/Creatinine Ratio 26.63 H (12.00-20.00) Ratio Calcium 7.3 L (8.7-10.3) mg/dL Magnesium 2.6 H (1.5-2.4) mg/dL Ur 24 Hour Volume 325 L 325 L (800-1800) mls Assessment and Plan Plan: Nephrotic syndrome with hypoalbuminemia and protienuria likely sec to noncom pliance with meds Hyponatremia Acute kidney injury Leukocytosis -Patient received dose of Solu-Medrol -Continue with cyclosporine and prednisone, increased dose to 30mg daily. -Urine showing high amount of protein, lab unable to calculate. -Na better -Followed by nephro who discontinued IV fluids and gave one dose of lasix on 06/19, and on 06/20 -Renal U/s ok CODE STATUS: Full Code DVT prophylaxis: Heparin Discussed with: Patient and RN Anticipated discharge date: Clinical course to determine Anticipated discharge place: Home
[2021-06-21] MEDS: HEPARIN SODIUM,PORCINE/PF 5,000 UNIT/0.5 ML SYRINGE SQ SCH ×3 (00:18→15:06)
[2021-06-21 02:00] VITALS: RESP 17
[2021-06-21] MEDS: cycloSPORINE 100 MG CAP PO SCH (08:56)
[2021-06-21] MEDS: predniSONE 10 MG TAB PO SCH (08:56)
[2021-06-21] MEDS: PANTOPRAZOLE 40 MG/10 ML VIAL IVP SCH (09:04)
[2021-06-21 09:17] LABS: African American GFR (CKD) 82.7 (60.0-200.0); Anion Gap 9.3 mmol/L (10.00-18.00); BUN/Creat Ratio 32.36 Ratio (12.00-20.00); Blood Urea Nitrogen 45.3 mg/dL (9.0-27.0); Calcium 7.2 mg/dL (8.7-10.3); Carbon Dioxide 20.7 mmol/L (20.0-27.5); Non-African American GFR(CKD) 71.3 (60.0-200.0); Potassium 4.5 mmol/L (3.5-5.5)
[2021-06-21] MEDS ORDERED: FUROSEMIDE 10 MG/ML 2 ML VIAL IV ONE (09:52)
--- NOTE | 2021-06-21 09:52 | P.PN ---
Subjective Patient is seen for follow-up for acute kidney injury and underlying minimal- change disease and nephrotic syndrome. Patient is currently in relapse. He has ongoing nausea and vomiting. Patient was started on Protonix this admission Prednisone has been increased to 30 mg daily. Sodium level had been low and worsened with normal saline currently improved with IV Lasix. Sodium is improved to 130 today. Serum creatinine is down to 1.4 mg/dL. Patient states he is voiding. 24-hour urine protein not resulted Nausea is improved. Objective - Vital Signs Vital signs: Vital Signs Temp 97.6 F 06/21/21 08:00 Pulse 68 06/21/21 08:00 Resp 17 06/21/21 01:58 BP 138/75 06/21/21 08:00 Pulse Ox 99 06/21/21 08:00 Intake & Output 06/20/21 06/21/21 06/21/21 18:59 06:59 18:59 Intake Total 1080 Balance 1080 Intake: Oral 1080 Other: Voiding Method Urinal Urinal # Voids 3 2 - Exam Patient is awake, comfortable, not in any acute distress Examination of the heart S1 and S2 Examination of lungs bilateral breath sounds are heard Abdomen is soft nontender Exertion lower extremity shows trace edema bilaterally SAFETY ADMINISTRATOR exam grossly intact - Labs CBC & Chem 7: 06/17/21 19:36 06/21/21 04:12 Labs: Abnormal Lab Results - Last 24 Hours (Table) 06/21/21 Range/Units 04:12 Sodium 130 L (135-145) mmol/L Anion Gap 9.30 L (10.00-18.00) mmol/L BUN 45.3 H (9.0-27.0) mg/dL BUN/Creatinine Ratio 32.36 H (12.00-20.00) Ratio Glucose 118 H (70-110) mg/dL Calcium 7.2 L (8.7-10.3) mg/dL Assessment and Plan Assessment: 1. Nephrotic syndrome with minimal change disease status post kidney biopsy in 2019. Patient had been in remission with last 24 hour urine protein of 103 mg in August 2020. 24 hour urine for protein currently pending Patient currently has a relapse with significant proteinuria. Etiology is likely noncompliance with medications. Baseline creatinine around 0.9-1 mg/dL. Was maintained on low-dose prednisone and cyclosporine. 2. 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 No improvement with hydration. Reacting improved today to 1.4 mg/dL 3. Nausea and vomiting possibly related to gastritis, maintained on proton pump inhibitors and improved 4. Hyponatremia, worsens with normal saline. Currently hypervolemic. Improved with Lasix. Sodium 1:30 today Plan: Repeat the dose of IV Lasix today. Patient can be discharged from nephrology standpoint Continue with proton pump inhibitors and current dose of prednisone and follow- up in the office in about 1 week's time
[2021-06-21 15:28] VITALS: BP 129/74; PULSE 74; TEMP 98
--- NOTE | 2021-06-21 15:30 | P.DS ---
Providers Date of admission: 06/17/21 20:21 Expected date of discharge: 06/21/21 Attending physician: Owen Oden MD Consults: 06/17/21 20:31 Consult Physician Routine Consulting Provider: Chinedu Rueda Consult Reason/Comments: Nephrotic syndrome Do you want consulting provider notified?: Already Contacted Primary care physician: Stated None Hospital Course: 20-year-old male with a PMH of nephrotic syndrome (follows with Dr. Rueda) on prednisone chronically, and mild intermittent asthma who presents to the emergency room with complaints of nausea and vomiting. The patient reports that he had not been feeling well over the past 2-3 days, and felt fatigued and dehydrated. The patient went to an urgent care center where a UA revealed protein, ketones, and blood, and the patient was subsequently referred to the emergency room. He reports ongoing nausea, slightly improved from his presentation. Reports that over the past 2-3 days, he has been urinating significantly less than usual, and that his urine is darker, almost brown in color. He also states that he had missed several doses of his prednisone. He denies experiencing abdominal pain, diarrhea, dysuria. Also denied chest discomfort, fever, chills, cough. Laboratory evaluation in the emergency room revealed creatinine 1.36 (baseline 0.9), WBC count 14.4, sodium 129, albumin 1.8. UA revealed ketones, moderate blood, and 4+ protein. On examination he had diffuse anasarca with 2-3+ edema in all extremities. Upon admission he was started on IV fluids but upon doing that his creatinine worsened to a peak of 2 and his sodium worsened to 126. He was seen by nephrology who stopped IV fluids and started on Lasix. Meanwhile prednisone 30 mg daily and cyclosporine were resumed. Cyclosporine level was low at 27 consistent with noncompliance. He did have significant proteinuria on quantitative protein analysis in the urine. With all of the above interventions the swelling improved as well as a renal function. On the day of discharge came back to normal at 1.4. Patient will be resumed on prednisone 30 mg daily and cyclosporine upon discharge. He was instructed to be compliant with the medication. He was also told to follow-up with the news video editor in the office in one week. Time for discharge 36 min Plan - Discharge Summary Discharge Rx Participant: No New Discharge Prescriptions: New predniSONE 30 mg PO DAILY 15 Days #15 tab cycloSPORINE [SandIMMUNE] 200 mg PO BID 30 Days #60 cap Discharge Medication List cycloSPORINE [SandIMMUNE] 200 mg PO BID 30 Days #60 cap 06/21/21 [Rx] predniSONE 30 mg PO DAILY 15 Days #15 tab 06/21/21 [Rx] Follow up Appointment(s)/Referral(s): Sofia Ford MD [STAFF PHYSICIAN] - 1 Week (PLEASE CALL OFFICE ON TUESDAY TO SCHEDULE APPOINTMENT) None,Stated [Primary Care Provider] - 1-2 days (PLEASE ESTABLISH WITH PRIMARY CARE PROVIDER )
== END 2021-06-21 16:40 | disposition home or self-care (01) | DRG 699 ==
LOC: EC 15:07 → 4SSUR 20:21
PROVIDERS: ADMIT Internal Medicine; ATTEND Internal Medicine
DX: N04.0 Nephrotic syndrome with minor glomerular abnormality (principal); E87.1 Hypo-osmolality and hyponatremia; N17.9 Acute kidney failure, unspecified; E86.0 Dehydration; K29.70 Gastritis, unspecified, without bleeding; J45.20 Mild intermittent asthma, uncomplicated; T45.1X6A Underdosing of antineoplastic and immunosuppressive drugs, initial encounter; Z91.14 Patient's other noncompliance with medication regimen; Z79.52 Long term (current) use of systemic steroids; Z87.09 Personal history of other diseases of the respiratory system
CPT/HCPCS: 36415; 76770; 80048; 80053; 80158; 81001; 81050; 82570; 83735; 84156; 84295; 85025; 87086; 87502; 87635; 96361; 96374; 99285

== ENCOUNTER → 2021-08-13 | Outpatient (CLI) | payer BC, OTHER | END | disposition home or self-care (01) | LOC: LABWHC1 09:59 | PROVIDERS: ATTEND Internal Medicine | DX: N05.0 Unspecified nephritic syndrome with minor glomerular abnormality (principal) | CPT/HCPCS: 36415; 80158 ==

== ENCOUNTER → 2021-10-07 | Outpatient (CLI) | payer BC, OTHER ==
[2021-10-07 10:56] LABS: Appearance,Urine Cloudy (Clear); Bacteria,Urine Occasional /hpf; Bilirubin,Urine Negative (Negative); Blood,Urine Moderate (Negative); Cellular Casts,Urine 3 /lpf (0); Color,Urine Yellow; Glucose,Urine (UA) Negative (Negative); Granular Casts,Urine 25 /lpf (0); Hyaline Casts,Urine 3 /lpf (0-2); Ketones,Urine Negative (Negative); Leukocyte Esterase,Urine Negative (Negative); Mucus,Urine Rare /hpf; Nitrite,Urine Negative (Negative); PH, Urine 6.5 (5.0-8.0); Protein,Urine 4+ (Negative); RBC,Urine 2 /hpf (0-5); Specific Gravity,Urine 1.043 (1.001-1.035); Urobilinogen,Urine <2.0 mg/dL (<2.0); WBC,Urine 11 /hpf (0-5)
[2021-10-07 15:10] LABS: Basophils # (A) 0.03 X 10*3/uL (0.00-0.10); Basophils % (A) 0.3 %; Eosinophils # (A) 0.09 X 10*3/uL (0.04-0.35); HCT 48.3 % (39.6-50.0); HGB 16.5 g/dL (13.0-17.0); Immature Grans, Automated 0.5 %; Lymphocytes # (A) 1.37 X 10*3/uL (0.90-5.00); Lymphocytes % (A) 15.5 %; MCH 28.4 pg (27.0-32.0); MCHC 34.2 g/dL (32.0-37.0); MCV 83.3 fL (80.0-97.0); Mean Platelet Volume 10.6 fL (9.5-12.2); Monocytes # (A) 0.81 X 10*3/uL (0.20-1.00); Monocytes % (A) 9.2 %; NRBC Per 100 WBC 0 /100 WBCS (0.0-0.0); Neutrophils % (A) 73.5 %; Platelet Count 339 X 10*3/uL (140-440); WBC 8.84 X 10*3/uL (4.50-10.00)
[2021-10-07 16:21] LABS: African American GFR (CKD) 30.4 (60.0-200.0); Albumin 1.7 g/dL (3.8-4.9); Albumin/Globulin Ratio 0.65 (1.60-3.17); BUN/Creat Ratio 11.32 Ratio (12.00-20.00); Calcium 7.6 mg/dL (8.7-10.3); Carbon Dioxide 21.9 mmol/L (20.0-27.5); Globulin 2.6 g/dL (1.6-3.3); Magnesium 2.3 mg/dL (1.5-2.4); Non-African American GFR(CKD) 26.3 (60.0-200.0); Phosphorus 4.5 mg/dL (2.4-5.1); Total Bilirubin 0.2 mg/dL (0.30-1.20); Total Protein 4.3 g/dL (6.2-8.2)
== END | disposition home or self-care (01) ==
LOC: LABWHC1 09:40
PROVIDERS: ATTEND Internal Medicine
DX: N18.1 Chronic kidney disease, stage 1 (principal)
CPT/HCPCS: 36415; 80053; 80158; 81001; 82306; 83735; 84100; 85025; 87086

== ENCOUNTER 2021-10-09 14:51 | Inpatient (IN) | payer BC, OTHER ==
[2021-10-09] MEDS ORDERED: ONDANSETRON 4 MG/2 ML VIAL IVP STA (17:34)
[2021-10-09 18:00] LABS: Basophils # (A) 0.1 k/uL (0-0.2); Basophils % (A) 1 %; Eosinophils # (A) 0.2 k/uL (0-0.7); Eosinophils % (A) 2 %; HCT 49.4 % (39.0-53.0); HGB 16.1 gm/dL (13.0-17.5); Lymphocytes # (A) 1.3 k/uL (1.0-4.8); Lymphocytes % (A) 14 %; MCH 27.7 pg (25.0-35.0); MCHC 32.7 g/dL (31.0-37.0); MCV 84.8 fL (80.0-100.0); Mean Platelet Volume 7.4; Monocytes # (A) 0.5 k/uL (0-1.0); Monocytes % (A) 6 %; Neutrophils # (A) 7.1 k/uL (1.3-7.7); Neutrophils % (A) 76 %; Platelet Count 348 k/uL (150-450); RBC 5.82 m/uL (4.30-5.90); RDW 12.8 % (11.5-15.5); WBC 9.3 k/uL (3.8-10.6)
[2021-10-09 18:14] LABS: Potassium 3.8 mmol/L (3.5-5.1); Total Bilirubin 0.2 mg/dL (0.2-1.3); Total Protein 4.3 g/dL (6.3-8.2)
[2021-10-09] MEDS ORDERED: SODIUM CHLORIDE 0.9% 2,000 ML IV STA (18:20)
[2021-10-09] MEDS ORDERED: CALCIUM CARBONATE 500 MG CHEWABLE PO STA (18:21)
[2021-10-09 18:38] LABS: Appearance,Urine Cloudy (Clear); Bilirubin,Urine Negative (Negative); Blood,Urine Moderate (Negative); Color,Urine Yellow; Glucose,Urine (UA) Trace (Negative); Granular Casts,Urine 1 /lpf (0); Ketones,Urine Negative (Negative); Leukocyte Esterase,Urine Negative (Negative); Mucus,Urine Rare /hpf; Nitrite,Urine Negative (Negative); PH, Urine 6.5 (5.0-8.0); Protein,Urine 4+ (Negative); RBC,Urine 3 /hpf (0-5); Specific Gravity,Urine 1.032 (1.001-1.035); Urobilinogen,Urine <2.0 mg/dL (<2.0); WBC,Urine 12 /hpf (0-5)
--- NOTE | 2021-10-09 18:39 | ED ---
General Adult HPI - General Chief complaint: Recheck/Abnormal Lab/Rx Stated complaint: Irregular labs Time Seen by Provider: 10/09/21 17:26 Source: patient Mode of arrival: ambulatory Limitations: no limitations - History of Present Illness Initial comments: Patient is a 21-year-old male with a past medical history of nephrotic syndrome who presents to the emergency department for evaluation of abnormal labs. Patient follows with Dr. Pablo. Patient had routine labs drawn 2 days ago. Patient states beginning of the week he has felt very nauseous with a couple episodes of vomiting therefore has not been compliant with a cyclosporine. Patient has history of noncompliance. States he has been compliant with prednisone daily. Denies fever, chills, upper respiratory symptoms, chest pain, shortness of breath, abdominal pain, extremity swelling. - Related Data Previous Rx's Medication Instructions Recorded cycloSPORINE [SandIMMUNE] 200 mg PO BID 30 Days #60 cap 06/21/21 predniSONE 30 mg PO DAILY 15 Days #15 tab 06/21/21 Allergies Allergy/AdvReac Type Severity Reaction Status Date / Time Penicillins Allergy Family Verified 10/09/21 15:16 History Review of Systems ROS Statement: Those systems with pertinent positive or pertinent negative responses have been documented in the HPI. ROS Other: All systems not noted in ROS Statement are negative. Past Medical History Past Medical History: Asthma, Renal Disease Additional Past Medical History / Comment(s): nephrotic syndrome, asthma as a child History of Any Multi-Drug Resistant Organisms: None Reported Past Surgical History: No Surgical Hx Reported Additional Past Surgical History / Comment(s): L renal parenchymal biopsy Past Anesthesia/Blood Transfusion Reactions: Unable to Obtain Additional Past Anesthesia/Blood Transfusion Reaction / Comment(s): Pt has never had surgery Past Psychological History: No Psychological Hx Reported Smoking Status: Never smoker Past Alcohol Use History: None Reported Past Drug Use History: None Reported - Past Family History Mother Additional Family Medical History / Comment(s): Mother has motion sickness. Pt cannot recall any other hx. Father History Unknown: Yes General Exam Limitations: no limitations General appearance: alert, in no apparent distress Head exam: Present: atraumatic, normocephalic, normal inspection Eye exam: Present: normal appearance, PERRL, EOMI. Absent: scleral icterus, conjunctival injection, periorbital swelling Respiratory exam: Present: normal lung sounds bilaterally. Absent: respiratory distress, wheezes, rales, rhonchi, stridor Cardiovascular Exam: Present: regular rate, normal rhythm, normal heart sounds. Absent: systolic murmur, diastolic murmur, rubs, gallop, clicks Extremities exam: Present: normal inspection, full ROM. Absent: pedal edema Neurological exam: Present: alert, oriented X3, CN II-XII intact Psychiatric exam: Present: normal affect, normal mood Skin exam: Present: warm, dry, intact, normal color. Absent: rash Course Vital Signs 10/09/21 10/09/21 15:12 18:41 Temperature 97.8 F Pulse Rate 78 67 Respiratory 18 18 Rate Blood Pressure 139/83 130/85 O2 Sat by Pulse 99 99 Oximetry Medical Decision Making - Medical Decision Making This 21-year-old male sent in for evaluation of abnormal renal labs. Thorough history and examination were performed. Patient well-appearing. No extremity swelling. No anasarca. Laboratory studies reveal significant JOE. Creatinine at 3.10, baseline around 0.9. Urinalysis shows 4+ protein and moderate blood. IV fluids initiated. Patient admitted with consult to nephrology. Dr. Moreno accepts admission. Dr. Flores is my attending. - Lab Data Result diagrams: 10/09/21 17:46 10/09/21 17:46 Lab Results 10/09/21 10/09/21 10/09/21 Range/Units 17:46 17:46 17:46 WBC 9.3 (3.8-10.6) k/uL RBC 5.82 (4.30-5.90) m/uL Hgb 16.1 (13.0-17.5) gm/dL Hct 49.4 (39.0-53.0) % MCV 84.8 (80.0-100.0) fL MCH 27.7 (25.0-35.0) pg MCHC 32.7 (31.0-37.0) g/dL RDW 12.8 (11.5-15.5) % Plt Count 348 (150-450) k/uL MPV 7.4 Neutrophils % 76 % Lymphocytes % 14 % Monocytes % 6 % Eosinophils % 2 % Basophils % 1 % Neutrophils # 7.1 (1.3-7.7) k/uL Lymphocytes # 1.3 (1.0-4.8) k/uL Monocytes # 0.5 (0-1.0) k/uL Eosinophils # 0.2 (0-0.7) k/uL Basophils # 0.1 (0-0.2) k/uL Sodium 129 L (137-145) mmol/L Potassium 3.8 (3.5-5.1) mmol/L Chloride 100 (98-107) mmol/L Carbon Dioxide 25 (22-30) mmol/L Anion Gap 4 mmol/L BUN 47 H (9-20) mg/dL Creatinine 3.10 H (0.66-1.25) mg/dL Est GFR (CKD-EPI)AfAm 31 (>60 ml/min/1.73 sqM) Est GFR (CKD-EPI)NonAf 27 (>60 ml/min/1.73 sqM) Glucose 100 H (74-99) mg/dL Calcium 7.0 L (8.4-10.2) mg/dL Total Bilirubin 0.2 (0.2-1.3) mg/dL AST 22 (17-59) U/L ALT 11 (4-49) U/L Alkaline Phosphatase 92 (38-126) U/L Total Protein 4.3 L (6.3-8.2) g/dL Albumin 2.0 L (3.5-5.0) g/dL Urine Color Yellow Urine Appearance Cloudy (Clear) Urine pH 6.5 (5.0-8.0) Ur Specific [place] 1.032 (1.001-1.035) Urine Protein 4+ H (Negative) Urine Glucose (UA) Trace H (Negative) Urine Ketones Negative (Negative) Urine Blood Moderate H (Negative) Urine Nitrite Negative (Negative) Urine Bilirubin Negative (Negative) Urine Urobilinogen <2.0 (<2.0) mg/dL Ur Leukocyte Esterase Negative (Negative) Urine RBC 3 (0-5) /hpf Urine WBC 12 H (0-5) /hpf Granular Casts 1 (0) /lpf Urine Mucus Rare H (None) /hpf Disposition Clinical Impression: Nephrotic syndrome, JOE (acute kidney injury), Protein, urine, abnormal presence Disposition: ADMITTED IP TO THIS [facility] Condition: Fair Referrals: Chris Colbert DO [Primary Care Provider] - 1-2 days Decision Time: 18:45
[2021-10-09] MEDS ORDERED: methylPREDNISolone SOD SUCCI 125 MG/2 ML VIAL IV STA (18:52)
[2021-10-09] MEDS ORDERED: SODIUM CHLORIDE 0.9% 1,000 ML IV STA (19:04)
[2021-10-09] MEDS ORDERED: cycloSPORINE 100 MG CAP PO SCH (21:00)
[2021-10-09] MEDS: cycloSPORINE 100 MG CAP PO SCH (21:55)
[2021-10-10 08:35] LABS: Basophils # (A) 0.01 X 10*3/uL (0.00-0.10); Basophils % (A) 0.1 %; Eosinophils # (A) 0 X 10*3/uL (0.04-0.35); Eosinophils % (A) 0 %; HCT 45.6 % (39.6-50.0); HGB 15.4 g/dL (13.0-17.0); Immature Grans, Automated 0.4 %; Lymphocytes # (A) 0.41 X 10*3/uL (0.90-5.00); Lymphocytes % (A) 5.1 %; MCH 27.7 pg (27.0-32.0); MCHC 33.8 g/dL (32.0-37.0); MCV 82.2 fL (80.0-97.0); Mean Platelet Volume 10.2 fL (9.5-12.2); Monocytes # (A) 0.04 X 10*3/uL (0.20-1.00); Monocytes % (A) 0.5 %; NRBC Per 100 WBC 0 /100 WBCS (0.0-0.0); Neutrophils # (A) 7.49 X 10*3/uL (1.80-7.70); Neutrophils % (A) 93.9 %; Platelet Count 349 X 10*3/uL (140-440); RBC 5.55 X 10*6/uL (4.40-5.60); RDW 12.4 % (11.5-14.5); WBC 7.98 X 10*3/uL (4.50-10.00)
[2021-10-10] MEDS: cycloSPORINE 100 MG CAP PO SCH ×2 (09:10→12:09)
[2021-10-10 10:18] LABS: ALT 11 U/L (10-49); AST 18 U/L (14-35); African American GFR (CKD) 32.7 (60.0-200.0); Albumin/Globulin Ratio 1.11 (1.60-3.17); Alkaline Phosphatase 84 U/L (41-126); Blood Urea Nitrogen 46.2 mg/dL (9.0-27.0); Calcium 7.5 mg/dL (8.7-10.3); Carbon Dioxide 21.2 mmol/L (20.0-27.5); Chloride 100 mmol/L (96-109); Globulin 1.8 g/dL (1.6-3.3); Glucose 156 mg/dL (70-110); Non-African American GFR(CKD) 28.2 (60.0-200.0); Potassium 4.5 mmol/L (3.5-5.5); Sodium 130 mmol/L (135-145); Total Bilirubin <0.15 mg/dL (0.30-1.20); Total Protein 3.8 g/dL (6.2-8.2)
--- NOTE | 2021-10-10 11:38 | P.NPCON ---
History of Present Illness - Reason for Consult acute renal failure - History of Present Illness Patient is a 20-year-old male with history of nephrotic syndrome secondary to minimal-change disease status post biopsy in 2019. Patient is maintained on prednisone and cyclosporine. He has a history of noncompliance Patient is admitted to the hospital with complaints of nausea and vomiting. He states that when his cyclosporine was recently refilled it was a new medication and caused him to have significant nausea and therefore he has not been taking it. Patient also reported that he has also missed doses of prednisone. Next Patient was hospitalized in June 2021 with acute kidney injury and relapse of nephrotic syndrome. He was started on prednisone and discharged with serum creatinine at that time at 1.4 from a peak of 2.0 mg/dL. Serum creatinine this admission was 3.1 mg/dL. UA shows 4+ protein. Albumin is 2.0 No complaints of fever chills or abdominal pain no cough. Review of Systems As per HPI other systems negative Past Medical History Past Medical History: Asthma, Renal Disease Additional Past Medical History / Comment(s): nephrotic syndrome, asthma as a child History of Any Multi-Drug Resistant Organisms: None Reported Past Surgical History: No Surgical Hx Reported Additional Past Surgical History / Comment(s): L renal parenchymal biopsy Past Anesthesia/Blood Transfusion Reactions: Unable to Obtain Additional Past Anesthesia/Blood Transfusion Reaction / Comment(s): Pt has never had surgery Past Psychological History: No Psychological Hx Reported Additional Psychological History / Comment(s): Pt resides with his grandmother and other family members. He is independent. Smoking Status: Never smoker Past Alcohol Use History: None Reported Past Drug Use History: None Reported - Past Family History Mother Additional Family Medical History / Comment(s): Mother has motion sickness. Pt cannot recall any other hx. Father History Unknown: Yes Medications and Allergies Home Medications Medication Instructions Recorded Confirmed Type cycloSPORINE [cycloSPORINE (GEQ 300 mg PO DAILY 10/09/21 10/09/21 History for SandIMMUNE) 100MG] predniSONE 10 mg PO DAILY 10/09/21 10/09/21 History Allergies Allergy/AdvReac Type Severity Reaction Status Date / Time Penicillins Allergy Family Verified 10/09/21 19:29 History Physical Exam Vitals: Vital Signs Temp Pulse Pulse Resp BP BP Pulse Ox 10/10/21 07:00 97.7 F 65 18 143/70 98 10/09/21 20:02 67 16 131/78 99 10/09/21 18:41 67 18 130/85 99 10/09/21 15:12 97.8 F 78 18 139/83 99 Intake and Output 10/09/21 10/10/21 10/10/21 22:59 06:59 14:59 Other: # Voids 0 Weight 104.326 kg 104.326 kg Patient is comfortable, awake, not in any acute distress Examination of the heart S1 and S2 Examination lungs bilateral breath sounds are heard Abdomen is soft nontender Examination of the lower extremities shows edema 1+ bilaterally PUBLIC HEALTH POLICY ANALYST exam grossly intact Results - Lab Results Most recent lab results Calcium 7.5 mg/dL (8.7-10.3) L 10/10/21 05:21 10/10/21 05:21 10/10/21 05:21 Assessment and Plan Assessment: 1. Acute kidney injury associated with relapse of nephrotic syndrome. History of kidney biopsy in 2019 which showed minimal change disease. Patient had been in remission with last 24 hour urine protein of 103 mg in August 2020. Admitted with relapse in June most likely associated with noncompliance with medications. Patient is supposed to be maintained on prednisone and cyclosporine. Baseline creatinine 0.9-1 mg/dL. Ultrasound done in June 2021 showed no major abnormalities 2. Nausea and vomiting most likely related to gastritis. Patient was not on any proton pump inhibitors recently. These were started during his hospitalization in June 3. Hyponatremia associated with nephrotic syndrome and acute kidney injury Plan: Maintained off of IV fluids Check lipid profile Check 24 hour urine for protein Resume cyclosporine Resume prednisone Add Pepcid Thank you for the consultation. We'll continue to follow the patient with you during his hospitalization
[2021-10-10] MEDS ORDERED: predniSONE 10 MG TAB PO SCH (11:45)
[2021-10-10] MEDS ORDERED: FAMOTIDINE 20 MG TAB PO SCH (11:45)
[2021-10-10] MEDS ORDERED: SODIUM CHLORIDE 0.9% 1,000 ML IV SCH (11:45)
[2021-10-10] MEDS: predniSONE 20 MG TAB PO SCH (12:09)
--- NOTE | 2021-10-10 14:10 | P.HPIM ---
History of Present Illness 21-year-old pleasant male with a known history of nephrotic syndrome minimal- change disease was on prednisone and cyclosporine came in with the renal failure secondary to noncompliance patient has not been taking cyclosporine prednisone as they as they feel him sick cyclosporine makes him nauseous. Patient had came in with similar complaints in the past and it was believed prednisone may recall causing gases with disease because of which the patient was put on the Pepcid. Patient has 4+ protein in the urine creatinine is 3.1 patient was resumed on cyclosporine in the prednisone dose was increased. Patient was complaining of nausea for couple days REVIEW OF SYSTEMS: CONSTITUTIONAL: No fever, no malaise, no fatigue. HEENT: No recent visual problems or hearing problems. Denied any sore throat. CARDIOVASCULAR: No chest pain, orthopnea, PND, no palpitations, no syncope. PULMONARY: No shortness of breath, no cough, no hemoptysis. GASTROINTESTINAL: No diarrhea,no abdominal pain. NEUROLOGICAL: No headaches, no weakness, no numbness. HEMATOLOGICAL: Denies any bleeding or petechiae. GENITOURINARY: Denies any burning micturition, frequency, or urgency. MUSCULOSKELETAL/RHEUMATOLOGICAL: Denies any joint pain, swelling, or any muscle pain. ENDOCRINE: Denies any polyuria or polydipsia. The rest of the 14-point review of systems is negative. PHYSICAL EXAMINATION: GENERAL: The patient is alert and oriented x3, not in any acute distress. Well developed, well nourished. HEENT: Pupils are round and equally reacting to light. EOMI. No scleral icterus. No conjunctival pallor. Normocephalic, atraumatic. No pharyngeal erythema. No thyromegaly. CARDIOVASCULAR: S1 and S2 present. No murmurs, rubs, or gallops. PULMONARY: Chest is clear to auscultation, no wheezing or crackles. ABDOMEN: Soft, nontender, nondistended, normoactive bowel sounds. No palpable organomegaly. MUSCULOSKELETAL: No joint swelling or deformity. EXTREMITIES: No cyanosis, clubbing, or pedal edema. NEUROLOGICAL: Gross neurological examination did not reveal any focal deficits. SKIN: No rashes. Assessment and plan -Acute renal failure secondary to relapse of nephrotic syndrome which is again secondary to noncompliance with medications. Counseling was provided patient will be monitored overnight continue with cephalosporin and the increase the dose of prednisone patient will be started on Pepcid -Nausea vomiting secondary to renal failure and possibly gastritis next and- hyponatremia secondary to renal failure from nephrotic syndrome DVT prophylaxis: Early ambulation Past Medical History Past Medical History: Asthma, Renal Disease Additional Past Medical History / Comment(s): nephrotic syndrome, asthma as a child History of Any Multi-Drug Resistant Organisms: None Reported Past Surgical History: No Surgical Hx Reported Additional Past Surgical History / Comment(s): L renal parenchymal biopsy Past Anesthesia/Blood Transfusion Reactions: Unable to Obtain Additional Past Anesthesia/Blood Transfusion Reaction / Comment(s): Pt has never had surgery Past Psychological History: No Psychological Hx Reported Additional Psychological History / Comment(s): Pt resides with his grandmother and other family members. He is independent. Smoking Status: Never smoker Past Alcohol Use History: None Reported Past Drug Use History: None Reported - Past Family History Mother Additional Family Medical History / Comment(s): Mother has motion sickness. Pt cannot recall any other hx. Father History Unknown: Yes Medications and Allergies Home Medications Medication Instructions Recorded Confirmed Type cycloSPORINE [cycloSPORINE (GEQ 300 mg PO DAILY 10/09/21 10/09/21 History for SandIMMUNE) 100MG] predniSONE 10 mg PO DAILY 10/09/21 10/09/21 History Allergies Allergy/AdvReac Type Severity Reaction Status Date / Time Penicillins Allergy Family Verified 10/09/21 19:29 History Physical Exam Vitals: Vital Signs Temp Pulse Pulse Resp BP BP Pulse Ox 10/10/21 07:00 97.7 F 65 18 143/70 98 10/09/21 20:02 67 16 131/78 99 10/09/21 18:41 67 18 130/85 99 10/09/21 15:12 97.8 F 78 18 139/83 99 Intake and Output 10/09/21 10/10/21 10/10/21 22:59 06:59 14:59 Other: # Voids 0 Weight 104.326 kg 104.326 kg Results CBC & Chem 7: 10/10/21 05:21 10/10/21 05:21 Labs: Abnormal Lab Results - Last 24 Hours (Table) 10/09/21 10/09/21 10/10/21 Range/Units 17:46 17:46 05:21 Lymphocytes # 0.41 L (0.90-5.00) X 10*3/uL Monocytes # 0.04 L (0.20-1.00) X 10*3/uL Eosinophils # 0 L (0.04-0.35) X 10*3/uL Sodium 129 L (137-145) mmol/L Anion Gap (10.00-18.00) mmol/L BUN 47 H (9-20) mg/dL Creatinine 3.10 H (0.66-1.25) mg/dL Est GFR (CKD-EPI)AfAm (60.0-200.0) Est GFR (CKD-EPI)NonAf (60.0-200.0) Glucose 100 H (74-99) mg/dL Calcium 7.0 L (8.4-10.2) mg/dL Total Bilirubin (0.30-1.20) mg/dL Total Protein 4.3 L (6.3-8.2) g/dL Albumin 2.0 L (3.5-5.0) g/dL Albumin/Globulin Ratio (1.60-3.17) g/dL Urine Protein 4+ H (Negative) Urine Glucose (UA) Trace H (Negative) Urine Blood Moderate H (Negative) Urine WBC 12 H (0-5) /hpf Urine Mucus Rare H (None) /hpf 10/10/21 Range/Units 05:21 Lymphocytes # (0.90-5.00) X 10*3/uL Monocytes # (0.20-1.00) X 10*3/uL Eosinophils # (0.04-0.35) X 10*3/uL Sodium 130 L (137-145) mmol/L Anion Gap 8.80 L (10.00-18.00) mmol/L BUN 46.2 H (9-20) mg/dL Creatinine 3.0 H (0.66-1.25) mg/dL Est GFR (CKD-EPI)AfAm 32.7 L (60.0-200.0) Est GFR (CKD-EPI)NonAf 28.2 L (60.0-200.0) Glucose 156 H (74-99) mg/dL Calcium 7.5 L (8.4-10.2) mg/dL Total Bilirubin <0.15 L (0.30-1.20) mg/dL Total Protein 3.8 L (6.3-8.2) g/dL Albumin 2.0 L (3.5-5.0) g/dL Albumin/Globulin Ratio 1.11 L (1.60-3.17) g/dL Urine Protein (Negative) Urine Glucose (UA) (Negative) Urine Blood (Negative) Urine WBC (0-5) /hpf Urine Mucus (None) /hpf
[2021-10-10] MEDS: FAMOTIDINE 20 MG TAB PO SCH (21:13)
[2021-10-11] MEDS: FAMOTIDINE 20 MG TAB PO SCH ×2 (09:38→20:32)
[2021-10-11] MEDS: predniSONE 20 MG TAB PO SCH (09:38)
[2021-10-11] MEDS: cycloSPORINE 100 MG CAP PO SCH (09:38)
--- NOTE | 2021-10-11 11:25 | P.PN ---
Subjective Patient is seen for follow-up for acute kidney injury and relapse of nephrotic syndrome from biopsy-proven minimal-change disease in 2019 mostly due to noncompliance with medications. Patient has been restarted on prednisone at a slightly higher dose along with his cyclosporine. 24 hour urine for protein is in progress. This morning patient states his abdominal pain has improved. He is able to tolerate oral intake. Labs are pending from today Objective - Vital Signs Vital signs: Vital Signs Temp 97.7 F 10/11/21 08:00 Pulse 63 10/11/21 08:00 Resp 18 10/11/21 08:00 BP 125/69 10/11/21 08:00 Pulse Ox 99 10/11/21 08:00 FiO2 Intake & Output 10/10/21 10/11/21 10/11/21 18:59 06:59 18:59 Intake Total 118 118 Output Total 0 Balance 118 118 Intake: Oral 118 118 Output: Emesis 0 Other: # Voids 2 - Exam Awake alert oriented 3 not in any acute distress Examination of the heart S1 and S2 Examination of the lungs bilateral breath sounds are heard Abdomen is soft nontender Examination of the lower extremity shows edema 1+ bilaterally [employer] exam grossly intact - Labs CBC & Chem 7: 10/10/21 05:21 10/10/21 05:21 Assessment and Plan Assessment: 1. Acute kidney injury associated with relapse of nephrotic syndrome. History of kidney biopsy in 2019 which showed minimal change disease. Patient had been in remission with last 24 hour urine protein of 103 mg in August 2020. Admitted with relapse in June most likely associated with noncompliance with medications. Patient is supposed to be maintained on prednisone and cyclosporine. Baseline creatinine 0.9-1 mg/dL. Ultrasound done in June 2021 showed no major abnormalities. Admitted again with noncompliance with medication. 2. Nausea and vomiting most likely related to gastritis. Patient was not on any proton pump inhibitors recently. These were started during his hospitalization in June 3. Hyponatremia associated with nephrotic syndrome and acute kidney injury Plan: Continue prednisone and cyclosporine Will follow-up on the 24 hour urine result Follow-up on labs from today
[2021-10-11 12:26] LABS: African American GFR (CKD) 35.1 (60.0-200.0); BUN/Creat Ratio 20.53 Ratio (12.00-20.00); Blood Urea Nitrogen 58.1 mg/dL (9.0-27.0); Calcium 7.6 mg/dL (8.7-10.3); Carbon Dioxide 22.1 mmol/L (20.0-27.5); Non-African American GFR(CKD) 30.2 (60.0-200.0); Potassium 4.3 mmol/L (3.5-5.5)
--- NOTE | 2021-10-11 13:53 | P.PN ---
Subjective 21-year-old pleasant male with a known history of nephrotic syndrome minimal- change disease was on prednisone and cyclosporine came in with the renal failure secondary to noncompliance patient has not been taking cyclosporine prednisone as they as they feel him sick cyclosporine makes him nauseous. Patient had came in with similar complaints in the past and it was believed prednisone may recall causing gases with disease because of which the patient was put on the Pepcid. Patient has 4+ protein in the urine creatinine is 3.1 patient was resumed on cyclosporine in the prednisone dose was increased. Patient was complaining of nausea for couple days 10/11/2021 There is slight improvement in serum creatinine patient will be continued on steroids and cyclosporine. Constitutional: Denied any fatigue denied any fever. Cardio vascular: denied any chest pain, palpitations Gastrointestinal denied any nausea vomiting Pulmonary: Denied any shortness of breath cough Neurologic denied any new focal deficits All inpatient medications were reviewed and appropriate changes in these medications as dictated in the interval history and assessment and plan. PHYSICAL EXAMINATION: GENERAL: The patient is alert and oriented x3, not in any acute distress. Well developed, well nourished. HEENT: Pupils are round and equally reacting to light. EOMI. No scleral icterus. No conjunctival pallor. Normocephalic, atraumatic. No pharyngeal erythema. No thyromegaly. CARDIOVASCULAR: S1 and S2 present. No murmurs, rubs, or gallops. PULMONARY: Chest is clear to auscultation, no wheezing or crackles. ABDOMEN: Soft, nontender, nondistended, normoactive bowel sounds. No palpable organomegaly. MUSCULOSKELETAL: No joint swelling or deformity. EXTREMITIES: No cyanosis, clubbing, or pedal edema. NEUROLOGICAL: Gross neurological examination did not reveal any focal deficits. SKIN: No rashes. Assessment and plan -Acute renal failure secondary to relapse of nephrotic syndrome which is again secondary to noncompliance with medications. Counseling was provided patient will be monitored overnight continue with cephalosporin and the increase the dose of prednisone patient will be started on Pepcid -Nausea vomiting secondary to renal failure and possibly gastritis next and- hyponatremia secondary to renal failure from nephrotic syndrome DVT prophylaxis: Early ambulation Objective - Vital Signs Vital signs: Vital Signs Temp 97.7 F 10/11/21 08:00 Pulse 63 10/11/21 08:00 Resp 18 10/11/21 08:00 BP 125/69 10/11/21 08:00 Pulse Ox 99 10/11/21 08:00 FiO2 Intake & Output 10/10/21 10/11/21 10/11/21 18:59 06:59 18:59 Intake Total 118 118 Output Total 0 Balance 118 118 Intake: Oral 118 118 Output: Emesis 0 Other: # Voids 2 - Labs CBC & Chem 7: 10/10/21 05:21 10/11/21 06:10 Labs: Abnormal Lab Results - Last 24 Hours (Table) 10/11/21 Range/Units 06:10 Sodium 132 L (135-145) mmol/L Anion Gap 8.00 L (10.00-18.00) mmol/L BUN 58.1 H (9.0-27.0) mg/dL Creatinine 2.8 H (0.6-1.5) mg/dL Est GFR (CKD-EPI)AfAm 35.1 L (60.0-200.0) Est GFR (CKD-EPI)NonAf 30.2 L (60.0-200.0) BUN/Creatinine Ratio 20.53 H (12.00-20.00) Ratio Glucose 121 H (70-110) mg/dL Calcium 7.6 L (8.7-10.3) mg/dL
[2021-10-12 07:57] VITALS: RESP 18
[2021-10-12] MEDS: cycloSPORINE 100 MG CAP PO SCH (08:50)
[2021-10-12] MEDS: FAMOTIDINE 20 MG TAB PO SCH (08:50)
[2021-10-12] MEDS: predniSONE 20 MG TAB PO SCH (08:50)
[2021-10-12 09:56] LABS: African American GFR (CKD) 56.7 (60.0-200.0); Anion Gap 5.4 mmol/L (10.00-18.00); BUN/Creat Ratio 27.21 Ratio (12.00-20.00); Blood Urea Nitrogen 51.7 mg/dL (9.0-27.0); Calcium 7.2 mg/dL (8.7-10.3); Carbon Dioxide 21.6 mmol/L (20.0-27.5); Potassium 4.2 mmol/L (3.5-5.5)
[2021-10-12] MEDS ORDERED: FUROSEMIDE 10 MG/ML 2 ML VIAL IV ONE (10:22)
--- NOTE | 2021-10-12 10:22 | P.PN ---
Subjective Patient is seen for follow-up for acute kidney injury and relapse of nephrotic syndrome from biopsy-proven minimal-change disease in 2019 mostly due to noncompliance with medications. Patient has been restarted on prednisone at a slightly higher dose along with his cyclosporine. 24 hour urine for protein is in progress. This morning patient states his abdominal pain has improved. He is able to tolerate oral intake. Serum creatinine down to 1.9 today Objective - Vital Signs Vital signs: Vital Signs Temp 97.9 F 10/12/21 07:56 Pulse 72 10/12/21 07:56 Resp 18 10/12/21 07:56 BP 113/64 10/12/21 07:56 Pulse Ox 99 10/12/21 07:56 FiO2 Intake & Output 10/11/21 10/12/21 10/12/21 18:59 06:59 18:59 Intake Total 318 Balance 318 Intake: Oral 318 Other: # Voids 1 2 - Exam Awake alert oriented 3 not in any acute distress Examination of the heart S1 and S2 Examination of the lungs bilateral breath sounds are heard Abdomen is soft nontender Examination of the lower extremity shows edema 1+ bilaterally [employer] exam grossly intact - Labs CBC & Chem 7: 10/10/21 05:21 10/12/21 06:06 Labs: Abnormal Lab Results - Last 24 Hours (Table) 10/11/21 10/12/21 Range/Units 06:10 06:06 Sodium 132 L 134 L (135-145) mmol/L Anion Gap 8.00 L 5.40 L (10.00-18.00) mmol/L BUN 58.1 H 51.7 H (9.0-27.0) mg/dL Creatinine 2.8 H 1.9 H (0.6-1.5) mg/dL Est GFR (CKD-EPI)AfAm 35.1 L 56.7 L (60.0-200.0) Est GFR (CKD-EPI)NonAf 30.2 L 49.0 L (60.0-200.0) BUN/Creatinine Ratio 20.53 H 27.21 H (12.00-20.00) Ratio Glucose 121 H (70-110) mg/dL Calcium 7.6 L 7.2 L (8.7-10.3) mg/dL Assessment and Plan Assessment: 1. Acute kidney injury associated with relapse of nephrotic syndrome. History of kidney biopsy in 2019 which showed minimal change disease. Patient had been in remission with last 24 hour urine protein of 103 mg in August 2020. Admitted with relapse in June most likely associated with noncompliance with medications. Patient is supposed to be maintained on prednisone and cyclosporine. Baseline creatinine 0.9-1 mg/dL. Ultrasound done in June 2021 showed no major abnormalities. Admitted again with noncompliance with medication. 2. Nausea and vomiting most likely related to gastritis. Patient was not on any proton pump inhibitors recently. These were started during his hospitalization in June 3. Hyponatremia associated with nephrotic syndrome and acute kidney injury Plan: IV Lasix 1. Patient can be discharged from nephrology standpoint. [place] he should follow- up in the office in about 1 week's time. Continue with current dose of prednisone and cyclosporine. Prednisone dose will be decreased in the office. Follow-up on 24 hour urine result, it is still pending
[2021-10-12 15:41] VITALS: BP 135/76; PULSE 85; TEMP 97.6
[2021-10-13 09:58] LABS: Total Volume 24 Hour,Urine 1400 mL
== END 2021-10-12 15:48 | disposition home or self-care (01) | DRG 683 ==
LOC: EC 14:51 → 5NMEDONC 20:25 → 6NMEDSUR 10-10 01:41
PROVIDERS: ADMIT Internal Medicine; ATTEND Internal Medicine
DX: N17.9 Acute kidney failure, unspecified (principal); N04.9 Nephrotic syndrome with unspecified morphologic changes; E87.1 Hypo-osmolality and hyponatremia; J45.909 Unspecified asthma, uncomplicated; K29.70 Gastritis, unspecified, without bleeding; Z79.52 Long term (current) use of systemic steroids; T45.1X6A Underdosing of antineoplastic and immunosuppressive drugs, initial encounter; Z87.09 Personal history of other diseases of the respiratory system; Z87.441 Personal history of nephrotic syndrome; Z91.14 Patient's other noncompliance with medication regimen; Z91.19 Patient's noncompliance with other medical treatment and regimen; Z88.0 Allergy status to penicillin
CPT/HCPCS: 36415; 80048; 80053; 80158; 81001; 81050; 84156; 85025; 96361; 96374; 99284

== ENCOUNTER → 2022-11-08 | Outpatient (CLI) | payer BC, OTHER ==
[2022-11-08 16:17] LABS: Creatinine,Urine Random 267.1 mg/dL; Protein/Creatinine Ratio,Urine 0.037
[2022-11-08 20:24] LABS: Appearance,Urine Clear (Clear); Bilirubin,Urine Negative (Negative); Blood,Urine Negative (Negative); Color,Urine Yellow (Yellow); Ketones,Urine Trace (Negative); Nitrite,Urine Negative (Negative); Specific Gravity,Urine 1.027 (1.001-1.030)
[2022-11-08 21:29] LABS: ALT 27 U/L (10-49); AST 16 U/L (14-35); Albumin 4.1 d/dL (3.8-4.9); Albumin/Globulin Ratio 1.95 Ratio (1.60-3.17); Alkaline Phosphatase 94 U/L (41-126); BUN/Creat Ratio 13.12 Ratio (12.00-20.00); Blood Urea Nitrogen 10.5 mg/dL (9.0-27.0); Calcium 9.5 mg/dL (8.7-10.3); Carbon Dioxide 25.4 mmol/L (21.6-31.8); Chloride 107 mmol/L (96-109); Globulin 2.1 d/dL (1.6-3.3); Glucose 103 mg/dL (70-110); Magnesium 1.8 mg/dL (1.5-2.4); Phosphorus 3.7 mg/dL (2.4-5.1); Potassium 4.4 mmol/L (3.5-5.5); Sodium 141 mmol/L (135-145); Total Bilirubin 0.5 mg/dL (0.3-1.2); Total Protein 6.2 d/dL (6.2-8.2)
[2022-11-08 22:28] LABS: HCT 45.3 % (39.6-50.0); HGB 14.9 d/dL (13.0-17.0); MCH 27.5 pg (27.0-32.0); MCHC 32.9 d/dL (32.0-37.0); MCV 83.7 FL (80.0-97.0); Mean Platelet Volume 10.9 FL (9.5-12.2); NRBC Per 100 WBC 0 X 10*3/uL (0.00-0.01); Platelet Count 270 X 10*3/uL (140-440); RBC 5.41 X 10*6/uL (4.40-5.60); RDW 12.9 % (11.5-14.5); WBC 5.69 X 10*3/uL (4.50-10.00)
== END | disposition home or self-care (01) ==
LOC: LABWHC1 14:23
PROVIDERS: ATTEND Nurse Practitioner Acute Care
DX: N05.0 Unspecified nephritic syndrome with minor glomerular abnormality (principal)
CPT/HCPCS: 36415; 80053; 80158; 81003; 82570; 83735; 84100; 84156; 85027

== ENCOUNTER → 2022-11-26 | Outpatient (CLI) | payer BC, OTHER | END | disposition home or self-care (01) | LOC: LABWHC1 10:06 | PROVIDERS: ATTEND Internal Medicine Nephrology | DX: N05.0 Unspecified nephritic syndrome with minor glomerular abnormality (principal) | CPT/HCPCS: 36415; 80158 ==

== ENCOUNTER 2023-04-12 16:03 | Emergency (ER) | payer BC, OTHER ==
--- NOTE | 2023-04-12 16:37 | ED ---
Recheck HPI - General Chief Complaint: Recheck/Abnormal Lab/Rx Stated Complaint: Abnormal Labs Time Seen by Provider: 04/12/23 16:36 Source: patient, RN notes reviewed, old records reviewed, Caregiver Mode of arrival: ambulatory Limitations: no limitations - History of Present Illness Initial Comments: This is a 22-year-old male presents with parents for evaluation of worsening outpatient lab testing worsening renal failure worsening renal function with history of nephrotic syndrome. Patient recently had diarrheal illness, significant nausea vomiting and diarrhea leading him to seek treatment with outpatient lab testing showing abnormal kidney function. Patient (a for recheck of your lab values, he states he feels improved able to eat and drink currently MD Complaint: abnormal lab (Abnormal renal function) -: days(s) Returns Today for: Called Because of Abnormal Lab/Test Symptoms Since Prior Visit: no new symptoms Context: called for abnormal lab result Associated Symptoms: none Treatments Prior to Arrival: other (0) - Related Data Home Medications Medication Instructions Recorded Confirmed cycloSPORINE [SandIMMUNE] 300 mg PO DAILY 10/09/21 10/09/21 Previous Rx's Medication Instructions Recorded Famotidine [Pepcid] 20 mg PO BID 30 Days #60 tab 10/12/21 predniSONE [Deltasone] 40 mg PO DAILY 30 Days #60 tab 10/12/21 Allergies Allergy/AdvReac Type Severity Reaction Status Date / Time Penicillins Allergy Family Verified 04/12/23 16:33 History Review of Systems ROS Statement: Those systems with pertinent positive or pertinent negative responses have been documented in the HPI. ROS Other: All systems not noted in ROS Statement are negative. Past Medical History Past Medical History: Asthma, Renal Disease Additional Past Medical History / Comment(s): nephrotic syndrome, asthma as a child History of Any Multi-Drug Resistant Organisms: None Reported Past Surgical History: No Surgical Hx Reported Additional Past Surgical History / Comment(s): L renal parenchymal biopsy Past Anesthesia/Blood Transfusion Reactions: Unable to Obtain Additional Past Anesthesia/Blood Transfusion Reaction / Comment(s): Pt has never had surgery Past Psychological History: No Psychological Hx Reported Smoking Status: Never smoker Past Alcohol Use History: None Reported Past Drug Use History: None Reported - Past Family History Mother Additional Family Medical History / Comment(s): Mother has motion sickness. Pt cannot recall any other hx. Father History Unknown: Yes General Exam Limitations: no limitations General appearance: alert, in no apparent distress Head exam: Present: atraumatic, normocephalic, normal inspection Eye exam: Present: normal appearance, PERRL, EOMI. Absent: scleral icterus, conjunctival injection, periorbital swelling ENT exam: Present: normal exam, mucous membranes moist Neck exam: Present: normal inspection. Absent: tenderness, meningismus, lymphadenopathy Respiratory exam: Present: normal lung sounds bilaterally. Absent: respiratory distress, wheezes, rales, rhonchi, stridor Cardiovascular Exam: Present: regular rate, normal rhythm, normal heart sounds. Absent: systolic murmur, diastolic murmur, rubs, gallop, clicks GI/Abdominal exam: Present: soft, normal bowel sounds. Absent: distended, tenderness, guarding, rebound, rigid Extremities exam: Present: normal inspection, full ROM, normal capillary refill. Absent: tenderness, pedal edema, joint swelling, calf tenderness Back exam: Present: normal inspection Neurological exam: Present: alert, oriented X3, CN II-XII intact Psychiatric exam: Present: normal affect, normal mood Skin exam: Present: warm, dry, intact, normal color. Absent: rash Course Vital Signs 04/12/23 04/12/23 16:30 19:45 Temperature 98.2 F Pulse Rate 85 78 Respiratory 18 18 Rate Blood Pressure 152/80 136/76 O2 Sat by Pulse 99 100 Oximetry - Reevaluation(s) Reevaluation #1: 04/12/23 16:37 Medical records reviewed Reevaluation #2: Patient informed of results and questions answered Reevaluation #3: Patient symptoms improved Reevaluation #4: Was pt. sent in by a medical professional or institution (, PA, EDGE CUTTER, urgent care, hospital, or senior living...) When possible be specific @ -no Did you speak to anyone other than the patient for history (EMS, parent, family, police, friend...)? What history was obtained from this source @ -no Did you review nursing and triage notes (agree or disagree)? Why? @ -agree Are old charts reviewed (outside hosp., previous admission, EMS record, old EKG, old radiological studies, urgent care reports/EKG's, senior living records)? Rep ort findings @ -yes Differential Diagnosis (chest pain, altered mental status, abdominal pain women, abdominal pain men, vaginal bleeding, weakness, fever, dyspnea, syncope, headache, dizziness, GI bleed, back pain, seizure, CVA, palpatations, mental health, musculoskeletal)? @ -prior EKG interpreted by me (3pts min.). @ -no X-rays interpreted by me (1pt min.). @ -no CT interpreted by me (1pt min.). @ -no U/S interpreted by me (1pt. min.). @ -no What testing was considered but not performed or refused? (CT, X-rays, U/S, labs)? Why? @ -none What meds were considered but not given or refused? Why? @ -none Did you discuss the management of the patient with other professionals (balta [place] i.e. , PA, EDGE CUTTER, lab, RT, psych nurse, social worker masters, resolution analyst, teacher, military police officer, rn case manager hospice)? Give summary @ -no Was smoking cessation discussed for >3mins.? @ -no Was critical care preformed (if so, how long)? @ -no Were there social determinants of health that impacted care today? How? (Homelessness, low income, unemployed, alcoholism, drug addiction, transportation, low edu. Level, literacy, decrease access to med. care, [facility], rehab)? @ -none Was there de-escalation of care discussed even if they declined (Discuss DNR or withdrawal of care, Hospice)? DNR status @ -no What co-morbidities impacted this encounter? (DM, HTN, Smoking, COPD, CAD, Cancer, CVA, ARF, Chemo, Hep., AIDS, mental health diagnosis, sleep apnea, morbid obesity)? @ -none Was patient admitted / discharged? Hospital course, mention meds given and route, prescriptions, significant lab abnormalities, going to OR and other pertinent info. @ - 22 male with history of nephrotic syndrome sent in for evaluation of abnormal lab test. Patient recently had episode of nausea vomiting and diarrhea causing worsening renal failure, patient is given significant fluid rehydration here in the ER with improving kidney function and can be discharged home Discharge Undiagnosed new problem with uncertain prognosis? @ -no Drug Therapy requiring intensive monitoring for toxicity (Heparin, Nitro, Insulin, Cardizem)? @ -no Were any procedures done? @ -no Diagnosis/symptom? @ -Renal failure dehydration nausea vomiting diarrhea Acute, or Chronic, or Acute on Chronic? @ -Acute Uncomplicated (without systemic symptoms) or Complicated (systemic symptoms)? @ -Complicated Side effects of treatment? @ -no Exacerbation, Progression, or Severe Exacerbation? @ -exacerbation Poses a threat to life or bodily function? How? (Chest pain, [place], [place], pneumonia, PE, COPD, DKA, ARF, appy, cholecystitis, CVA, Diverticulitis, Homicidal, Suicidal, threat to staff... and all critical care pts) @ -yes with significant renal failure Medical Decision Making - Medical Decision Making 22 male with history of nephrotic syndrome sent in for evaluation of abnormal lab test. Patient recently had episode of nausea vomiting and diarrhea causing worsening renal failure, patient is given significant fluid rehydration here in the ER with improving kidney function and can be discharged home - Lab Data Result diagrams: 04/12/23 16:41 04/12/23 16:41 Lab Results 04/12/23 04/12/23 04/12/23 Range/Units 16:41 16:41 16:41 WBC 10.5 (3.8-10.6) k/uL RBC 5.82 (4.30-5.90) m/uL Hgb 17.0 (13.0-17.5) gm/dL Hct 49.1 (39.0-53.0) % MCV 84.3 (80.0-100.0) fL MCH 29.1 (25.0-35.0) pg MCHC 34.6 (31.0-37.0) g/dL RDW 13.0 (11.5-15.5) % Plt Count 335 (150-450) k/uL MPV 7.5 Neutrophils % 80 % Lymphocytes % 12 % Monocytes % 6 % Eosinophils % 1 % Basophils % 0 % Neutrophils # 8.4 H (1.3-7.7) k/uL Lymphocytes # 1.2 (1.0-4.8) k/uL Monocytes # 0.6 (0-1.0) k/uL Eosinophils # 0.1 (0-0.7) k/uL Basophils # 0.0 (0-0.2) k/uL Sodium 131 L (137-145) mmol/L Potassium 4.2 (3.5-5.1) mmol/L Chloride 105 (98-107) mmol/L Carbon Dioxide 24 (22-30) mmol/L Anion Gap 2 mmol/L BUN 56 H (9-20) mg/dL Creatinine 3.44 H (0.66-1.25) mg/dL Est GFR (CKD-EPI)AfAm 27 (>60 ml/min/1.73 sqM) Est GFR (CKD-EPI)NonAf 24 (>60 ml/min/1.73 sqM) Glucose 96 (74-99) mg/dL Calcium 7.7 L (8.4-10.2) mg/dL Phosphorus 5.2 H (2.5-4.5) mg/dL Magnesium 2.5 H (1.6-2.3) mg/dL Total Bilirubin 0.4 (0.2-1.3) mg/dL AST 19 (17-59) U/L ALT 12 (4-49) U/L Alkaline Phosphatase 115 (38-126) U/L Creatine Kinase 65 (55-170) U/L Total Protein 4.9 L (6.3-8.2) g/dL Albumin 2.4 L (3.5-5.0) g/dL Urine Color Yellow Urine Appearance Cloudy (Clear) Urine pH 6.5 (5.0-8.0) Ur Specific Mcloud 1.038 H (1.001-1.035) Urine Protein 4+ H (Negative) Urine Glucose (UA) Trace H (Negative) Urine Ketones Trace H (Negative) Urine Blood Moderate H (Negative) Urine Nitrite Negative (Negative) Urine Bilirubin Negative (Negative) Urine Urobilinogen <2.0 (<2.0) mg/dL Ur Leukocyte Esterase Negative (Negative) Urine RBC 1 (0-5) /hpf Urine WBC 6 H (0-5) /hpf Ur Squamous Epith Cells 2 (0-4) /hpf Granular Casts 11 (0) /lpf Urine Mucus Rare H (None) /hpf Disposition Clinical Impression: JOE (acute kidney injury), Protein, urine, abnormal presence, Nephrotic syndrome Disposition: HOME SELF-CARE Condition: Fair Instructions (If sedation given, give patient instructions): Acute Kidney Injury (DC) Is patient prescribed a controlled substance at d/c from ED?: No Referrals: Chris Colbert DO [Primary Care Provider] - 1-2 days
[2023-04-12 16:41] VITALS: RESP 18; TEMP 98.2
[2023-04-12 17:04] LABS: Basophils % (A) 0 %; Eosinophils # (A) 0.1 k/uL (0-0.7); Eosinophils % (A) 1 %; HCT 49.1 % (39.0-53.0); Lymphocytes # (A) 1.2 k/uL (1.0-4.8); Lymphocytes % (A) 12 %; MCH 29.1 pg (25.0-35.0); MCHC 34.6 g/dL (31.0-37.0); MCV 84.3 fL (80.0-100.0); Mean Platelet Volume 7.5; Monocytes # (A) 0.6 k/uL (0-1.0); Monocytes % (A) 6 %; Neutrophils # (A) 8.4 k/uL (1.3-7.7); Neutrophils % (A) 80 %; Platelet Count 335 k/uL (150-450); RBC 5.82 m/uL (4.30-5.90); WBC 10.5 k/uL (3.8-10.6)
[2023-04-12 17:11] LABS: Appearance,Urine Cloudy (Clear); Bilirubin,Urine Negative (Negative); Blood,Urine Moderate (Negative); Color,Urine Yellow; Glucose,Urine (UA) Trace (Negative); Granular Casts,Urine 11 /lpf (0); Ketones,Urine Trace (Negative); Leukocyte Esterase,Urine Negative (Negative); Mucus,Urine Rare /hpf; Nitrite,Urine Negative (Negative); PH, Urine 6.5 (5.0-8.0); Protein,Urine 4+ (Negative); RBC,Urine 1 /hpf (0-5); Specific Gravity,Urine 1.038 (1.001-1.035); Squamous Epithelial Cell,Urine 2 /hpf (0-4); Urobilinogen,Urine <2.0 mg/dL (<2.0); WBC,Urine 6 /hpf (0-5)
[2023-04-12 17:16] LABS: Chloride 105 mmol/L (98-107)
[2023-04-12 17:17] LABS: ALT 12 U/L (4-49); AST 19 U/L (17-59); African American GFR (CKD) 27 (>60 ml/min/1.73 sqM); Albumin 2.4 g/dL (3.5-5.0); Alkaline Phosphatase 115 U/L (38-126); Anion Gap 2 mmol/L; Blood Urea Nitrogen 56 mg/dL (9-20); Calcium 7.7 mg/dL (8.4-10.2); Carbon Dioxide 24 mmol/L (22-30); Creatine Kinase 65 U/L (55-170); Glucose 96 mg/dL (74-99); Magnesium 2.5 mg/dL (1.6-2.3); Non-African American GFR(CKD) 24 (>60 ml/min/1.73 sqM); Phosphorus 5.2 mg/dL (2.5-4.5); Potassium 4.2 mmol/L (3.5-5.1); Sodium 131 mmol/L (137-145); Total Bilirubin 0.4 mg/dL (0.2-1.3); Total Protein 4.9 g/dL (6.3-8.2)
[2023-04-12] MEDS: SODIUM CHLORIDE 0.9% 1,000 ML IV STA ×2 (17:18→18:26)
[2023-04-12 20:06] VITALS: BP 136/76; PULSE 78
== END 2023-04-12 19:46 | disposition home or self-care (01) ==
LOC: EC 16:03
DX: N17.9 Acute kidney failure, unspecified (principal); N04.9 Nephrotic syndrome with unspecified morphologic changes; Z88.0 Allergy status to penicillin
CPT/HCPCS: 36415; 80053; 81001; 82550; 83735; 84100; 85025; 96360; 96361; 99284

== ENCOUNTER → 2023-05-09 | Outpatient (CLI) | payer OTHER ==
[2023-05-09 15:58] LABS: Creatinine,Urine Random 213.5 mg/dL
[2023-05-10 01:15] LABS: Appearance,Urine Cloudy (Clear); Bilirubin,Urine Negative (Negative); Blood,Urine Negative (Negative); Color,Urine Yellow (Yellow); Ketones,Urine Negative (Negative); Nitrite,Urine Negative (Negative); Specific Gravity,Urine 1.023 (1.001-1.030)
[2023-05-10 01:30] LABS: Bacteria,Urine None Seen (None Seen)
[2023-05-10 02:08] LABS: ALT 18 U/L (10-49); AST 16 U/L (14-35); Albumin 3.6 g/dL (3.8-4.9); Alkaline Phosphatase 79 U/L (41-126); BUN/Creat Ratio 17.25 Ratio (12.00-20.00); Blood Urea Nitrogen 13.8 mg/dL (9.0-27.0); Calcium 9.3 mg/dL (8.7-10.3); Carbon Dioxide 24.4 mmol/L (21.6-31.8); Chloride 107 mmol/L (96-109); Glucose 141 mg/dL (70-110); Potassium 4.2 mmol/L (3.5-5.5); Sodium 141 mmol/L (135-145); Total Bilirubin 0.3 mg/dL (0.3-1.2); Total Protein 5.6 g/dL (6.2-8.2)
== END | disposition home or self-care (01) ==
LOC: LABWHC1 15:14
PROVIDERS: ATTEND Internal Medicine
DX: N05.0 Unspecified nephritic syndrome with minor glomerular abnormality (principal)
CPT/HCPCS: 36415; 80053; 80158; 81001; 82570; 84156

== ENCOUNTER → 2023-10-14 | Outpatient (CLI) | payer BC | END | disposition home or self-care (01) | LOC: LABWHC1 09:11 | PROVIDERS: ATTEND Internal Medicine | DX: N05.0 Unspecified nephritic syndrome with minor glomerular abnormality (principal) | CPT/HCPCS: 36415; 80158 ==